=== PATIENT | female | born 1985 | race African-American/Black ===

== ENCOUNTER 2019-08-04 11:53 | Emergency (ER) | payer OTHER, SELFPAY ==
--- NOTE | ~2019-08-04 | XR_ITS ---
EXAMINATION: XR chest 2V DATE: 08/04/2019 12:37 INDICATION: Chest pain and dizziness TECHNIQUE: PA and lateral views of the chest were obtained. COMPARISON: Chest radiograph dated 06/27/[address] dated 06/28/2017 FINDINGS: The lungs remain clear with no focal airspace opacities, pulmonary edema, pleural effusion or pneumot horax. The cardiomediastinal silhouette is normal. Visualized bones and soft tissues are unremarkable . IMPRESSION: 1. No acute cardiopulmonary disease. Reviewed, dictated and finalized at location A. T VAULT CLERK
[2019-08-04 12:00] VITALS: BP 148/105; PULSE 82; RESP 18; TEMP 36.6; O2SAT 98
--- NOTE | 2019-08-04 12:23 | ECG_ITS ---
Measurements Intervals [place] Rate: 77 P: 35 TX: 167 QRS: 20 QRSD: 96 T: -3 QT: 372 QTc: 421 Interpretive Statements SINUS RHYTHM NONSPECIFIC T-WAVE ABNORMALITY- ANT/INF LEADS BORDERLINE ECG Electronically Signed On 08-04-2019 12:46:35 DATA OPERATIONS LEADER by Tony Fall D.O.
[2019-08-04 12:34] LABS: Basophils Percent Auto 0.2 % (0.2-1.2); Eosinophils Absolute Auto 0.1 K/mm3 (0-0.3); Eosinophils Percent Auto 1.1 % (0-4.4); Hematocrit 28.9 % (37.0-47.0); Hemoglobin 8.1 g/dL (12.0-15.0); Immature Granulocyte Absolute 0.06 K/mm3 (0.00-0.031); Immature Granulocyte Percent A 0.5 % (0-0.5); Lymphocytes Absolute Auto 2.33 K/mm3 (0.9-3.2); Mean Corpuscular Hemoglobin 18.7 pg (26-34); Mean Corpuscular Volume 66.6 fl (80-100); Mean Platelet Volume 9.3 fl (7.4-10.4); Monocytes Absolute Auto 0.5 K/mm3 (0.1-0.6); Monocytes Percent Auto 3.9 % (2.6-8.5); Neutrophils Absolute Auto 9.9 K/mm3 (1.3-6.7); Neutrophils Percent Auto 76.3 % (45.5-73.1); Platelet Count Result 583 k/mm3 (150-375); Red Blood Count 4.34 M/mm3 (4.2-5.4); Red Cell Distribution Width 18.8 % (11.5-14.5); White Blood Count 12.9 K/mm3 (4.5-10.0)
[2019-08-04 12:41] LABS: Hypochromasia 2+ (NORMAL); Ovalocytes 1+ (NORMAL); Platelet Estimate Adequate (Adequate); Poikilocytosis 1+ (NORMAL); Target Cells 1+ (NORMAL)
[2019-08-04 12:44] LABS: Prothrombin Time 13.3 Seconds (11.1-14.7)
[2019-08-04 12:45] LABS: Partial Thromboplastin Time 25.9 SECONDS (22.3-36.8)
[2019-08-04 12:47] LABS: Blood Urea Nitrogen 6 mg/dL (7-17); Calcium 9.2 mg/dL (8.4-10.2); Carbon Dioxide 29 mmol/L (22-30); Chloride 102 mmol/L (98-107); Estimated CRCL calculation 146 ml/min; Estimated Glomerular Filt Rate > 60; Glucose 98 mg/dL (65-105); Potassium 4.1 mmol/L (3.4-5.0); Sodium 138 mmol/L (137-145)
[2019-08-04 12:58] VITALS: BP 166/111; PULSE 76; RESP 20; O2SAT 100
[2019-08-04 12:58] LABS: Troponin I < 0.012 ng/mL (0.000-0.034)
--- NOTE | 2019-08-04 13:15 | ED.DIZZY ---
HPI - Dizziness General Chief Complaint: Dizziness Stated Complaint: dizzy Time Seen by Provider: 08/04/19 13:12 Source: patient Mode of arrival: ambulatory Limitations: no limitations History of Present Illness HPI Narrative: The pt is a 34 y/o female who presents to the ED with c/o dizziness for the past 2 days. The pt states that her dizziness makes her feel like the room is spinning. Her dizziness is aggravated with getting up and walking around but is relieved with laying down and closing her eyes. The pt reports SOB on exertion and nausea, but denies vomiting, diarrhea, cough, congestion, sinus pressure, chills, or bloody stool. She notes that she was sick 2-3 weeks ago with N/V/D, chills, and cough. The pt has a PMHx of anemia, noting her hemoglobin normally runs from 6-8 g/dL. She is supposed to take an iron supplement QD but does not do so because it makes her constipated. The pt has tried taking Ibuprofen for her sx and denies a PMHx of HTN. MD elicited complaint: dizziness Onset (ago): day(s) (2) Description: room spinning Exacerbating factors: other (getting up, walking around) Relieving factors: lying down and keeping eyes closed Associated symptoms: nausea and shortness of breath (on exertion) Related Data Allergies Allergy/AdvReac Type Severity Reaction Status Date / Time No Known Allergies Allergy Unknown Unverified 06/27/17 21:56 Review of Systems Review of Systems: All systems reviewed & are unremarkable except as noted in HPI and below Constitutional: Constitutional: Denies chills ENT: Denies nasal congestion and Denies sinus pressure Respiratory: Respiratory: Denies cough and Reports dyspnea (on exertion) Gastrointestinal: Gastrointestinal: Denies diarrhea, Reports nausea, Denies vomiting and Denies other (bloody stool) Neurologic: Reports dizziness [facility] Past Medical History Medical History (Updated 08/04/19 @ 15:40 by Dread Alvarez MD) Anemia Arthritis Figueroa's palsy Endometriosis GERD (gastroesophageal reflux disease) Pelvic inflammatory disease Pneumonia Strep throat Surgical History Surgical History (Updated 08/04/19 @ 13:52 by Iliana Garcia) H/O tubal ligation Social History Social History (Updated 08/04/19 @ 13:53 by Iliana Garcia) Smoking status: Never smoker Gender identity (if verbalized by the patient): Female Exam Const: General: healthy appearing and no acute distress Nutritional Appearance: obese HENMT: Mouth: Yes lip normal and Yes moist mucous membranes Eyes: Conjunctivae: conjunctivae normal Pupils: Equal, round and reactive pupils present Resp: Effort & Inspection: normal respiratory effort Auscultation: clear to auscultation bilaterally Cardio: Rate: regular rate Rhythm: regular rhythm Heart sounds: no murmurs GI: GI Palp: No abdominal tenderness and Yes Soft to palpation Auscultation: normal bowel sounds Back/Spine/Pelvis: Back: other (full ROM) Skin: General skin exam: normal color, dry skin and other (warm) Neuro: General: patient oriented x3 Cranial nerves: Yes Nystagmus present (mild) Speech: normal speech Extrem: General: full ROM Psych: Mental Status: mental status grossly normal Affect: normal affect Course Vital Signs Vital signs: Vital Signs Temperature 36.6 C 08/04/19 12:00 Pulse Rate 82 08/04/19 12:00 Respiratory Rate 18 08/04/19 12:00 Blood Pressure 148/105 H 08/04/19 12:00 Pulse Oximetry 98 08/04/19 12:00 Temperature 36.8 C 08/04/19 15:49 Pulse Rate 80 08/04/19 15:49 Respiratory Rate 18 08/04/19 15:49 Blood Pressure 148/88 H 08/04/19 15:49 Pulse Oximetry 98 08/04/19 15:49 MDM - Dizziness MDM Narrative Medical decision making narrative: She is moderately anemic, but this seems to be her baseline. Dizziness improved with treatment. Seems most consistent with vertigo. Likely related to recent URI. Differential Diagnosis Differential diagnosis: Likely benign
[2019-08-04 13:24] VITALS: BP 148/97; BP 150/99; BP 155/102; PULSE 73; PULSE 80; PULSE 90
[2019-08-04] MEDS: SODIUM CHLORIDE 0.9% IV 1,000 ML 999 ML IV CONT (13:36)
[2019-08-04] MEDS: MECLIZINE HCL 25 MG TABLET PO (13:36)
[2019-08-04] MEDS: KETOROLAC 30 MG/ML VIAL (*BKC) IV PUSH (14:31)
[2019-08-04] MEDS: METOCLOPRAMIDE HCL INJ 10 MG/2 ML VIAL IV PUSH (14:32)
[2019-08-04 15:49] VITALS: BP 148/88; PULSE 80; RESP 18; TEMP 36.8; O2SAT 98
== END 2019-08-04 15:50 | disposition home or self-care (01) ==
PROVIDERS: Emergency Medicine; Emergency Provider Emergency Medicine; PCP Internal Medicine
DX: R42 Dizziness and giddiness (principal); M19.90 Unspecified osteoarthritis, unspecified site; K21.9 Gastro-esophageal reflux disease without esophagitis; D64.9 Anemia, unspecified; N80.9 Endometriosis, unspecified; R94.31 Abnormal electrocardiogram [ECG] [EKG]
CPT/HCPCS: 36415; 71046; 80048; 84484; 85025; 85610; 85730; 93005; 96361; 96365; 96375; 99284; A9270; J0131; J1885; J2765; J7030

== ENCOUNTER 2020-04-28 13:44 | Outpatient (CLI) | payer OTHER, SELFPAY ==
--- NOTE | ~2020-04-28 | MMUS_ITS ---
EXAMINATION: MM diagnostic jimmy BI w wes, US breast RT limited HISTORY: Palpable lump of the far posterior third of the inner right breast TECHNIQUE: Craniocaudal, mediolateral, and mediolateral oblique 3-D tomosynthesis images of the breas ts were performed and synthetic 2-D images were generated. CAD analysis was submitted and interpreted . High resolution limited right breast ultrasound was performed. COMPARISON: None, baseline BREAST PARENCHYMAL COMPOSITION: The breasts are almost entirely fatty. FINDINGS: MAMMOGRAPHIC FINDINGS: Right breast: There is an ill-defined, indistinct focal asymmetry in the far posterior third of the i nner breast which appears to be associated with the skin corresponding to the palpable abnormality of concern. Left breast: There is no evidence of suspicious mass, calcification, or architectural distortion to s uggest malignancy. ULTRASOUND: There is a 2.3 x 0.7 x 2.0 cm hypoechoic area of the skin with a tract to the skin surface at the 2:0 0 location 8 cm from the nipple adjacent to the sternum corresponding to the palpable abnormality of concern. IMPRESSION: 1. Sebaceous cyst corresponding to the palpable abnormality of concern. Clinical follow-up is recomme nded. 2. Recommend routine screening mammography beginning at age 40. BI-RADS Category 2: Benign finding(s). Reviewed, dictated and finalized at location A. R ENGINEER IMPRESSION: 1. Sebaceous cyst corresponding to the palpable abnormality of concern. Clinica l follow-up is recommended. 2. Recommend routine screening mammography beginning at age 40. BI-RADS Category 2: Benign finding(s).
== END 2020-04-28 13:45 | disposition home or self-care (01) ==
LOC: ANHIMG 13:46
PROVIDERS: PCP Internal Medicine; Visit Provider Advanced Practice Midwife
DX: N63.10 Unspecified lump in the right breast, unspecified quadrant (principal)
CPT/HCPCS: 76642; 77062; 77066; G0279

== ENCOUNTER 2021-04-04 00:36 | Emergency (ER) | payer OTHER, SELFPAY ==
--- NOTE | ~2021-04-04 | CT_ITS ---
EXAMINATION: CT knee RT wo con DATE: 04/04/2021 03:35 INDICATION: Right knee pain and swelling TECHNIQUE: Computed tomography (CT) of the right knee was performed without intravenous contrast. The dose-length product was 464.28 mGy-cm. Automated exposure control and iterative reconstruction techn ique were employed. COMPARISON: No prior studies for comparison. FINDINGS: There is mild osteoarthritis of the right knee. No acute fracture, subluxation or dislocati on. Small joint effusion. No significant soft tissue abnormality. No foreign bodies. IMPRESSION: 1. No acute fracture. Reviewed, dictated and finalized at location A. IMPRESSION: 1. No acute fracture.
--- NOTE | ~2021-04-04 | XR_ITS ---
XR knee RT min 4V 04/04/2021 01:15 INDICATION: Right knee pain PROCEDURE: 5 views right knee COMPARISON: No prior studies for comparison. FINDINGS: Fracture, dislocation or subluxation is not identified. No significant joint effusion. The soft tissues appear within normal limits. No foreign bodies are identified. IMPRESSION: 1: NO ACUTE BONE OR JOINT ABNORMALITY IDENTIFIED. Reviewed, dictated and finalized at location A.
[2021-04-04 00:38] VITALS: BP 136/90; PULSE 92; RESP 20; TEMP 36.8; O2SAT 100
[2021-04-04 02:56] VITALS: BP 140/100; PULSE 79; RESP 17; TEMP 36.4; O2SAT 99
[2021-04-04] MEDS: ONDANSETRON HCL ODT 4 MG TABLET PO (03:10)
[2021-04-04] MEDS: HYDROcodone/acetaminophen (*CRX) 5-325 MG TABLET 1 TAB PO (03:10)
[2021-04-04] MEDS: IBUPROFEN 400 MG TABLET 800 MG PO (03:11)
--- NOTE | 2021-04-04 05:21 | ED.LOWEXIN ---
HPI - Extremity Injury (Lower) General Chief Complaint: Extremity Injury, Lower Stated Complaint: Right knee pain Time Seen by Provider: 04/04/21 02:47 Source: patient Mode of arrival: ambulatory Limitations: no limitations History of Present Illness HPI Narrative: This is a 35 year old female who presents for evaluation of right knee pain. She developed right anterior knee pain 1 week ago. Her pain is worse with walking. She has been taking ibuprofen for her pain. Today she was at a concert, and she felt of crack in her knee when she sat down. She has been unable to bear weight in her right knee since. Pain is also worse with bending. She has not taken anything for pain since 4 pm. She has no fever or redness. She denies fever, chills, chest pain or shortness of breath. She states her pain is severe and she is unable to walk due to her pain. Related Data Allergies Allergy/AdvReac Type Severity Reaction Status Date / Time No Known Allergies Allergy Unknown Unverified 06/27/17 21:56 Review of Systems Review of Systems: All systems reviewed & are unremarkable except as noted in HPI and below PMFSH Past Medical History Medical History Anemia Arthritis Figueroa's palsy Endometriosis GERD (gastroesophageal reflux disease) Pelvic inflammatory disease Pneumonia Strep throat Surgical History Surgical History H/O tubal ligation Social History Social History (Updated 08/04/19 @ 13:53 by Iliana Garcia) Smoking status: Never smoker Gender identity (if verbalized by the patient): Female Exam Const: General: no acute distress and alert Nutritional Appearance: obese Orientation/consciousness: patient oriented x3 Eyes: EOM: EOMs intact bilaterally Resp: Effort & Inspection: normal respiratory effort Neuro: General: patient oriented x3, moves all extremities and CN's II-XI intact bilaterally Extrem: Other: I could not appreciate significant swelling, no redness, she has anterior right knee tenderness. Pain with flexion. FROM otherwise. STrong pedal pulse, no calf tenderness, negative madhuri's sign Psych: Mental Status: mental status grossly normal Affect: normal affect Course Reevaluation(s) Reevaluation #1: I Discussed with patient that CT findings. She will be discharge home with knee immobilizer and follow up with PCP Date: 04/04/21 Time: 06:27 Vital Signs Vital signs: Vital Signs Temperature 98.2 F 04/04/21 00:38 Pulse Rate 92 04/04/21 00:38 Respiratory Rate 20 04/04/21 00:38 Blood Pressure 136/90 04/04/21 00:38 Pulse Oximetry 100 04/04/21 00:38 Temperature 97.6 F 04/04/21 02:56 Pulse Rate 64 04/04/21 05:44 Respiratory Rate 17 04/04/21 05:44 Blood Pressure 110/66 04/04/21 05:44 Pulse Oximetry 100 04/04/21 05:44 MDM - Extremity Injury (Lower) Imaging Data Attestation: I personally reviewed and interpreted this imaging study as follows: My impression: right knee xray- no xray Radiologist's impression: CT right knee Impression: No acute osseous traumatic injury. Mild joint space narrowing with marginal hypertrophinc osteophytes changes. Suprapatellar joint effusion noted. Incidiental fingings: there is sigmoid overlying soft tissue abnormality. The muscle bundles demonstrae no significan abnormality Discharge Plan Discharge Clinical Impression: Acute pain of right knee, Effusion of knee joint right Patient Disposition: Home, Self-Care Condition: Stable Instructions: Antibiotic Form, Swollen Knee Joint (ED), Knee Pain (ED) Additional Instructions: Please continue to take antiinflammatory and pain medication as need. Wear brace or immobilizer. Ice intermittent for swelling and pain. Follow up with your primary care physician for evaluation. Prescriptions: New ibuprofen 800 mg tablet 800 mg PO Q6H PRN (Reason:
[2021-04-04 05:44] VITALS: BP 110/66; PULSE 64; RESP 17; O2SAT 100
== END 2021-04-04 07:00 | disposition home or self-care (01) ==
PROVIDERS: Emergency Provider Emergency Medicine
DX: M25.461 Effusion, right knee (principal); M25.561 Pain in right knee
CPT/HCPCS: 73564; 73700; 99284; A9270

== ENCOUNTER 2021-06-02 | Day surgery (SDC) | payer OTHER, SELFPAY ==
[2021-05-26 08:28] VITALS: BMI 53.7
--- NOTE | 2021-05-26 09:09 | PC.NURSE ---
Report to the Outpatient Waiting Room, entrance under the green pavilion located off [facility], at time 0600 on date 06/02/21. OR Time: 0730. - You and your visitor will be asked a series of questions to screen for COVID 19 for your protection. - A mask is required within the hospital. - Only one visitor is allowed at this time. Patient visitors will be guided where to wait when not with patient. Preoperative COVID Testing Requirements: No COVID Test needed if: (proof is required; if not received patient will have Rapid Test prior to entry) - Patient has received COVID Vaccine at least 14 days prior to procedure date or - Patient has positive COVID test result within last 90 days of surgery date. COVID Test needed if above criteria is not met If not COVID vaccinated a COVID test must be conducted within 72 hours of surgery and patient is asked to isolate self from time of testing until procedure. You will go to the [facility] for your COVID testing. The [facility] is located at the corner of [address] [facility]. You will only be called if COVID results are positive and your surgeon may reschedule your elective surgery date. Patients may have clear liquids (water, carbonated beverages, clear teas, apple juice) until 3 hours prior to surgery with a maximum of 20 ounces. - No food from midnight until time of surgery - Infants may have breast milk until 4 hours before surgery, infant formula 6 hours prior to surgery. - Children will be allowed to drink immediately following surgery. If applicable, please bring a bottle or sippy cup to assist with drinking. Juice, water, soda, and popsicles are readily available. For infants on formula, please bring formula the day of surgery. Pacifiers are allowed. Take the following medications with a SIP of water the morning of surgery: NONE Medications to discontinue per physician: VITAMINS/SUPPLEMENTS Date to take last dose: 05/29/21 Please no make-up, nail uzbek, hairspray, perfume, deodorant, or body powder the day of surgery. No jewelry (including any body piercings) or valuables the day of surgery, leave them at home. Please take a shower or bath the night before, or the morning of, surgery with an antibacterial soap. Wear comfortable, loose fitting clothing. Children are encouraged to wear pajamas. - Jewelry must be removed prior to entering the operating room. Rings and piercings that are not removed may be cut off. - The hospital will not accept responsibility for valuables. - Please leave all valuables, including medications, at home the day of surgery. If you are going home after surgery, a licensed driver's license examiner must drive you home. - NO public transportation without another adult. - We recommend that an adult stay with you for 24 hours following discharge. - We also recommend that you do not drive, make important decision, drink alcoholic beverages, or take any drugs that were not prescribed by your health care provider for at least 24 hours after your discharge time. For Pediatric surgeries, we recommend two adults accompany the child home (only one inside the building at this time). Follow any additional instructions given to you from your surgeon. Telephone instructions given to BRENDEN MIMS and asked if any additional questions and then verbalized understanding. Patient advised to call surgeon office or pre surgery nurse liaison [phone] if any additional questions.
[2021-06-02] VITALS (9 sets, daily range): BP systolic 128–150; BP diastolic 87–97; PULSE 50–84; RESP 10–22; TEMP 36.1–36.6; O2SAT 99–100; BMI 56.0
--- NOTE | 2021-06-02 06:37 | WPDANESEPPF ---
Anes - Initial Pre Proc Eval Procedure: Operation Date: 06/02/21 07:30 Proposed Procedures p Laparoscopic Left Ovarian Cystectomy - Ida Zavala MD Date/Time: 06/02/21 06:37 Surgeon: Ida Zavala MD Pre Op Diagnosis: Pain in Pelvis Patient Data Age: 36 Gender: F Height: 1.57 m Weight: 139.1 kg Allergies Allergy/AdvReac Type Severity Reaction Status Date / Time No Known Allergies Allergy Unknown Verified 06/02/21 06:27 Home Medications Medication Instructions Recorded Confirmed Type ascorbic acid (vitamin C) [Vitamin 500 mg PO DAILY 05/26/21 06/02/21 History C] ferrous sulfate [Iron (ferrous 325 mg PO DAILY 05/26/21 06/02/21 History sulfate)] multivitamin 1 tablet PO DAILY 05/26/21 06/02/21 History Patient hx anesthesia problems: none Family hx anesthesia problems: none Results Review: All pre-operative results and documents have been reviewed as part of the pre-operative evaluation. [facility] Past Medical History Medical History (Updated 06/02/21 @ 06:37 by Cr Calderon MD) Anemia Arthritis Figueroa's palsy Endometriosis GERD (gastroesophageal reflux disease) Morbid obesity Pelvic inflammatory disease Pneumonia Strep throat Surgical History Surgical History H/O tubal ligation Social History Social History Smoking status: Never smoker Alcohol intake: current Alcohol use details: A COUPLE A YEAR Substance use: never Substance use type: does not use Living arrangements: with family Additional living arrangements comments: CHILDREN Gender identity (if verbalized by the patient): Female Spiritual care concerns: Yes (NO BLOOD PRODUCTS) Anes - Eval Final PreProcedure Day of Procedure 06/02/21 06:37 Patient weight: morbidly obese Heart: regular rate and rhythm Lungs: clear to auscultation Airway: Mallampati scale class II Neurological: alert and oriented Last oral intake: >/= 8 hours ASA classification: III Emergent: no Anesthetic plan: proceed Anesthesia type and monitoring: general ETT and standard monitoring Results Review: All pre-operative results and documents have been reviewed as part of the pre-operative evaluation. Informed Consent: The patient's anesthetic plan and its attendant risks and benefits were discussed with the patient/family/POA. Questions were solicited and answers provided to the satisfaction of the patient/family/POA.
[2021-06-02] MEDS: LACTATED RINGERS 1,000 ML 30 ML IV CONT ×2 (06:40→08:36)
[2021-06-02] MEDS: ACETAMINOPHEN 500 MG TABLET 1000 MG PO (06:47)
[2021-06-02] MEDS: KETOROLAC 15 MG/ML VIAL (*BKC) IV PUSH (06:48)
--- NOTE | 2021-06-02 07:06 | WPDHPUPDATE1 ---
History and Physical Update Update Date/Time: 06/02/21 07:06 History and Physical has been reviewed, including an updated exam of the patient. There are NO changes in the patient's condition. Risks, benefits, and alternatives have been discussed and questions answered. Patient agrees to proceed with procedure.
--- NOTE | 2021-06-02 08:32 | P.OP_ITS ---
Procedure Note - Detailed Date of Procedure 06/02/21 Pre-op Diagnosis Pain in Pelvis, left ovarian cyst Post-op Diagnosis same Procedure Performed Laparoscopic left ovarian cystectomy. Surgeon Ida Zavala MD Anesthesia general Indications Pelvic pain, ovarian cyst Findings Large quantity of intra-abdominal fat and intestine. Difficult to place in Trendelenburg position due to anesthesia concerns, the left ovary contained a cyst that appeared benign. The right ovary appeared normal. The top of the uterus appeared normal, the rest of the pelvis could not be visualized. Description of Procedure The patient was taken to the operating room. She was prepped and draped in the dorsal lithotomy position after induction general anesthesia. A 5 mm incision was made with a scalpel on the abdominal skin in the left upper quadrant of the abdomen. A 5 mm trocar was inserted into the intra-abdominal cavity under direct visualization the scope. In the same fashion a 5 mm left lower quadrant trocar was inserted and a 5 mm infraumbilical trocar was inserted. A cystectomy was performed on the left ovary. This was done with sharp dissection and monopolar cautery. It was hemostatic at the end of the cystec meghna. The pelvis was irrigated. The pneumoperitoneum was reduced. The trocars were removed. Skin was closed with subcuticular 4 Monocryl. The patient's incisions were covered with Dermabond. She was taken recovery room in stable condition. Sponge lap and needle counts were correct x2. Estimated Blood Loss 20 Pathology yes Complications No immediate complications Condition stable Disposition same day
[2021-06-02] MEDS: fentaNYL CITRATE INJ (*CRX) 100 MCG/2 ML VIAL 25 MCG IV PUSH ×5 (08:45→10:20)
[2021-06-02] MEDS: oxyCODONE HCL (*CRX) 5 MG TAB IR PO (10:06)
== END 2021-06-02 10:50 | disposition home or self-care (01) ==
PROVIDERS: Visit Provider Obstetrics & Gynecology
PROC: (CPT 49320; principal; 2021-06-02 07:30)
DX: R10.2 Pelvic and perineal pain (principal); N83.202 Unspecified ovarian cyst, left side; D64.9 Anemia, unspecified; E66.01 Morbid (severe) obesity due to excess calories; Z68.43 Body mass index [BMI] 50.0-59.9, adult
CPT/HCPCS: 58662; A9270; J0330; J1100; J1885; J2250; J2270; J2405; J2704; J3010; J7030; J7120

== ENCOUNTER 2022-06-13 07:03 | Emergency (ER) | payer OTHER, SELFPAY ==
--- NOTE | ~2022-06-13 | XR_ITS ---
EXAMINATION: XR chest 2V DATE: 06/13/2022 07:39 INDICATION: Fever, cough and congestion TECHNIQUE: frontal and lateral views of the chest were obtained. COMPARISON: Chest radiograph dated 08/04/19 FINDINGS: The lungs remain clear with no focal airspace opacities, pulmonary edema, pleural effusion or pneumot horax. The cardiomediastinal silhouette is normal. Visualized bones and soft tissues are unremarkable . IMPRESSION: 1. No acute cardiopulmonary disease. Reviewed, dictated and finalized at location A. ET ASSEMBLER
[2022-06-13 07:06] VITALS: BP 176/96; PULSE 107; RESP 16; TEMP 37.4; O2SAT 97
--- NOTE | 2022-06-13 07:15 | ED.URI ---
HPI - URI/Sore Throat General Chief Complaint: Upper Respiratory Infection Stated Complaint: URI Time Seen by Provider: 06/13/22 07:11 History of Present Illness HPI Narrative: Pt presents with low grade fever, cough, vomiting and diarrhea for about a week. Pt denies other sick family members. Pt has some body aches as well and a mild SEGAL. Related Data Home Medications Medication Instructions Recorded Confirmed ascorbic acid (vitamin C) 500 mg 500 mg PO DAILY 05/26/21 06/02/21 tablet (Vitamin C) ferrous sulfate 325 mg (65 mg 325 mg PO DAILY 05/26/21 06/02/21 iron) tablet (Iron (ferrous sulfate)) multivitamin 1 tablet PO DAILY 05/26/21 06/02/21 Allergies Allergy/AdvReac Type Severity Reaction Status Date / Time hydrocodone AdvReac Mild Nausea Verified 06/03/21 09:57 Review of Systems Review of Systems: All systems reviewed & are unremarkable except as noted in HPI and below PMFSH Past Medical History Medical History (Updated 06/13/22 @ 08:17 by Sharona Naidu III, DO) Anemia Arthritis Figueroa's palsy Endometriosis GERD (gastroesophageal reflux disease) Morbid obesity Pelvic inflammatory disease Pneumonia Strep throat Surgical History Surgical History H/O tubal ligation Social History Social History Smoking status: Never smoker Alcohol intake: current Alcohol use details: A COUPLE A YEAR Substance use: never Substance use type: does not use Additional living arrangements comments: CHILDREN Gender identity (if verbalized by the patient): Female Spiritual care concerns: Yes (NO BLOOD PRODUCTS) Exam Const: General: healthy appearing and no acute distress Nutritional Appearance: well nourished Orientation/consciousness: patient oriented x3 Limitations: no limitations HENMT: Face/Nose/Sinus: Nasal discharge present Mouth: Yes Normal oral and palatal mucosa present Throat: posterior oropharynx normal Eyes: EOM: EOMs intact bilaterally Neck: Neck: normal visual inspection, no lymphadenopathy and no meningeal signs Resp: Effort & Inspection: normal respiratory effort Auscultation: clear to auscultation bilaterally Cardio: Rate: regular rate Rhythm: regular rhythm GI: GI Palp: Yes Soft to palpation Auscultation: normal bowel sounds Skin: General skin exam: normal color Rashes: no rashes Neuro: General: patient oriented x3, moves all extremities, no meningeal signs and no focal motor deficits Cranial nerves: Yes Nystagmus not present Speech: normal speech Extrem: General: normal to inspection and no clubbing, cyanosis or edema Psych: Mental Status: mental status grossly normal Affect: normal affect Attitude: cooperative Course Vital Signs Vital signs: Vital Signs Temperature 99.3 F 06/13/22 07:06 Pulse Rate 107 H 06/13/22 07:06 Respiratory Rate 16 06/13/22 07:06 Blood Pressure 176/96 H 06/13/22 07:06 Pulse Oximetry 97 06/13/22 07:06 Temperature 99.3 F 06/13/22 07:06 Pulse Rate 107 H 06/13/22 07:06 Respiratory Rate 16 06/13/22 07:06 Blood Pressure 176/96 H 06/13/22 07:06 Pulse Oximetry 97 06/13/22 07:06 Oxygen Delivery Room Air 06/13/22 07:40 MDM - URI/Sore Throat MDM Narrative Medical decision making narrative: cxr neg, covid positive, works at [employer] so will need to be off until cleared, will prescribe zofran for nausea told to take tylenol and motrin for fever and drink fluids Differential Diagnosis Differential diagnosis: Likely upper respiratory infection, viral infection, influenza and other (pneumonia, bronchitis, rsv, covid) Lab Data Attestation: I reviewed the patient's lab results. Labs: Lab Results 06/13/22 Range/Units 07:16 Influenza A (RT-PCR) Negative (Negative) Influenza B (RT-PCR) Negative (Negative) RSV (RT-PCR) Negative (Negative) SARS-CoV-2 RNA (RT-PCR) Positive A
[2022-06-13 08:01] LABS: Influenza A QL RT-PCR Negative (Negative); Influenza B QL RT-PCR Negative (Negative); RSV RNA, RT-PCR Negative (Negative); SARS-CoV-2 RNA PCR Positive
== END 2022-06-13 08:38 | disposition home or self-care (01) ==
PROVIDERS: Emergency Provider Emergency Medicine
DX: U07.1 COVID-19 (principal); M19.90 Unspecified osteoarthritis, unspecified site; K21.9 Gastro-esophageal reflux disease without esophagitis; N80.9 Endometriosis, unspecified; Z87.01 Personal history of pneumonia (recurrent); Z86.2 Personal history of diseases of the blood and blood-forming organs and certain disorders involving the immune mechanism
CPT/HCPCS: 71046; 87637; 99283

== ENCOUNTER 2022-06-29 17:28 | Emergency (ER) | payer OTHER, SELFPAY ==
--- NOTE | ~2022-06-29 | CT_ITS ---
EXAMINATION: CT abdomen pelvis w con DATE: 06/29/2022 19:04 INDICATION: abd pain TECHNIQUE: Computed tomography (CT) of the abdomen and pelvis was performed with 100 mL Omnipaque-350 intravenous contrast. Automated exposure control and iterative reconstruction technique were employe d. The dose-length product was 1513.16 mGy-cm. COMPARISON: 09/29/2012. FINDINGS: Lower thorax: Lingular scar. Liver: Normal. Biliary/Gallbladder: Gallbladder is normal. No bile duct dilation. Pancreas: No mass or duct dilation. Spleen: Normal. Adrenals:No mass. Kidneys: Mild patchy right renal enhancement. Mild right pelviectasis and caliectasis, with urothelia l enhancement and periureteral stranding. No obstructive calcification. No suspicious mass. GI tract: No small or large bowel dilation. Normal appendix. Mesentery/Peritoneum: No ascites, mass, or free air. Retroperitoneum: No mass. Pelvis: Pelvic organs are within normal limits. Small simple right ovarian cyst. Soft Tissues: Soft tissues and body wall unremarkable. Bones: No acute osseous finding. IMPRESSION: CT findings suggestive of ascending urinary tract infection on the right with pyelonephritis. Reviewed, dictated and finalized at location [facility] REPRES[facility]IVE IMPRESSION: CT findings suggestive of ascending urinary tract infection on the right with p yelonephritis.
[2022-06-29 17:30] VITALS: BP 152/110; PULSE 88; RESP 18; TEMP 36.8; O2SAT 100
[2022-06-29 18:07] LABS: Basophils Percent Auto 0.3 % (0.2-1.2); Eosinophils Absolute Auto 0.1 K/mm3 (0-0.3); Hematocrit 27.5 % (37.0-47.0); Hemoglobin 7.6 g/dL (12.0-15.0); Immature Granulocyte Absolute 0.04 K/mm3 (0.00-0.031); Immature Granulocyte Percent A 0.3 % (0-0.5); Lymphocytes Absolute Auto 2.32 K/mm3 (0.9-3.2); Lymphocytes Percent Auto 17.2 % (18.3-44.2); Mean Corpuscular HGB Conc 27.6 g/dl (32-36); Mean Corpuscular Hemoglobin 18.6 pg (26-34); Mean Corpuscular Volume 67.2 fl (80-100); Mean Platelet Volume 9.8 fl (7.4-10.4); Monocytes Absolute Auto 0.8 K/mm3 (0.1-0.6); Neutrophils Absolute Auto 10.1 K/mm3 (1.3-6.7); Neutrophils Percent Auto 75.2 % (45.5-73.1); Platelet Count Result 594 k/mm3 (150-375); Red Blood Count 4.09 M/mm3 (4.2-5.4); Red Cell Distribution Width 20.2 % (11.5-14.5); White Blood Count 13.5 K/mm3 (4.5-10.0)
[2022-06-29 18:15] LABS: Chloride 101 mmol/L (98-107)
[2022-06-29 18:23] LABS: Hypochromasia 1+ (NORMAL); Platelet Estimate Increased (Adequate)
[2022-06-29 18:24] LABS: Anisocytosis 1+ (NORMAL); Microcytosis 1+ (NORMAL); Ovalocytes 1+ (NORMAL); Schistocytes None Seen (NORMAL); Target Cells 1+ (NORMAL)
--- NOTE | 2022-06-29 18:26 | PC.NURSE ---
Dr. Romero at bedside to assess pt.
--- NOTE | 2022-06-29 18:32 | ED.ABDPAIN ---
HPI - Abdominal Pain General Chief Complaint: Abdominal Pain Stated Complaint: right side abd pain Time Seen by Provider: 06/29/22 17:43 Source: RN notes reviewed History of Present Illness HPI narrative: Patient presents emergency room from home for abdominal pain. Patient states pain began this morning. The pain is located in the right lower abdomen does not radiate described as sharp and stabbing in nature. States she has not take anything for the pain she denies any fevers or chills, nausea vomiting or diarrhea she denies any chest pain or shortness of breath. Patient states she does have a history of tubal ligation Related Data Home Medications Medication Instructions Recorded Confirmed ascorbic acid (vitamin C) 500 mg 500 mg PO DAILY 05/26/21 06/02/21 tablet (Vitamin C) ferrous sulfate 325 mg (65 mg 325 mg PO DAILY 05/26/21 06/02/21 iron) tablet (Iron (ferrous sulfate)) multivitamin 1 tablet PO DAILY 05/26/21 06/02/21 Allergies Allergy/AdvReac Type Severity Reaction Status Date / Time hydrocodone AdvReac Mild Nausea Verified 06/03/21 09:57 Review of Systems Review of Systems: Gen.: Denies fevers or chills ENT: Denies congestion Respiratory: Denies shortness of breath or cough CV: Denies chest pain or palpitations GI: See HPI denies burning, urgency, frequency or hematuria Musculoskeletal: Denies back pain or muscle pain Neuro: Denies numbness, tingling, weakness or focal weakness Skin: Denies rash Except as documented, all other systems reviewed and negative [facility]LY [facility] Past Medical History Medical History Anemia Arthritis Figueroa's palsy Endometriosis GERD (gastroesophageal reflux disease) Morbid obesity Pelvic inflammatory disease Pneumonia Strep throat Surgical History Surgical History H/O tubal ligation Social History Social History Smoking status: Never smoker Alcohol intake: current Alcohol use details: A COUPLE A YEAR Substance use: never Substance use type: does not use Additional living arrangements comments: CHILDREN Gender identity (if verbalized by the patient): Female Spiritual care concerns: Yes (NO BLOOD PRODUCTS) Exam Narrative: APPEARANCE: No acute distress, nontoxic, resting in bed HEENT: Normocephalic, atraumatic, OMM RESPIRATORY: No respiratory distress, clear to auscultation bilaterally with no rhonchi wheezing or rales CARDIOVASCULAR: RRR s murmur ABDOMINAL: Soft nondistended tender palpation right lower quadrant right upper quadrant returns and left upper quadrant left lower quadrant no rebound or guarding MUSCULOSKELETAl: Moves all extremities. No clubbing, cyanosis or edema. NEURO: Awake and alert. Following commands, speech normal, no focal deficits SKIN:: Warm, dry. Normal Color PSYCHIATRIC: Normal affect/mood Course Course Emergency Course: Patient states she is feeling much better at this time ready for discharge Discussed with patient results of workup and diagnosis. Discussed need for follow-up with primary care, proper use of medication, and reasons to return to the emergency department. Patient understands and agrees to current treatment plan Vital Signs Vital signs: Vital Signs Temperature 98.2 F 06/29/22 17:30 Pulse Rate 88 06/29/22 17:30 Respiratory Rate 18 06/29/22 17:30 Blood Pressure 152/110 H 06/29/22 17:30 Pulse Oximetry 100 06/29/22 17:30 Oxygen Delivery Room Air 06/29/22 17:30 Temperature 98.2 F 06/29/22 17:30 Pulse Rate 88 06/29/22 17:30 Respiratory Rate 18 06/29/22 17:30 Blood Pressure 152/110 H 06/29/22 17:30 Pulse Oximetry 100 06/29/22 17:30 Oxygen Delivery Room Air 06/29/22 17:30 MDM - Abdominal Pain MDM Narrative Medical decision making narrative: Patient present with right-sided abdominal pain lab resu
[2022-06-29 18:38] LABS: Alanine Aminotransferase 16 U/L (6-35); Albumin Level 4.2 g/dL (3.5-5.1); Alkaline Phosphatase 94 U/L (38-126); Anion Gap 5 mmol/L (8-16); Aspartate Amino Transferase 21 U/L (14-36); Bilirubin,Total 0.2 mg/dL (0.2-1.3); Blood Urea Nitrogen 7 mg/dL (7-17); Calcium 8.7 mg/dL (8.4-10.2); Carbon Dioxide 27 mmol/L (22-30); Estimated CRCL calculation 143 ml/min; Estimated Glomerular Filt Rate > 60; Glucose 101 mg/dL (65-110); Lipase 53 U/L (23-300); Potassium 3.7 mmol/L (3.4-5.0); Sodium 133 mmol/L (137-145)
[2022-06-29 18:40] LABS: Appearance Urine Cloudy (Clear); Bilirubin Urine Negative (Negative); Blood Urine 2+ (Negative); Color Urine Yellow (Yellow); Glucose Urine UA Negative (Negative); Ketones Urine Negative (Negative); Leukocyte Esterase Ur 1+ LEU/UL (Negative); Nitrate Urine Negative (Negative); Protein Urine 3+ mg/dL (Negative); Specific Grav Ur >= 1.030 (1.001-1.035); Urobilinogen Urine 0.2 mg/dL (<2.0); pH Urine 5.5 (5.0-9.0)
[2022-06-29 18:42] LABS: Pregnancy On Board Control Positive; Urine Pregnancy Test Negative
[2022-06-29 18:46] LABS: Bacteria Urine Trace /hpf; Mucus Urine Rare /lpf; RBC Urine 51-75 /hpf (0-2); Squamous Epithelial Cell Urine Moderate /hpf (Few); WBC Urine >75 /hpf
[2022-06-29 18:47] LABS: Add Urine Microscopic? YES
[2022-06-29] MEDS: KETOROLAC 30 MG/ML VIAL (*BKC) IV PUSH (18:47)
[2022-06-29] MEDS: SODIUM CHLORIDE 0.9% IV 1,000 ML 999 ML IV CONT (18:48)
--- NOTE | 2022-06-29 18:54 | PC.NURSE ---
Patient off unit to CT.
[2022-06-29 20:26] LABS: Lactic Acid Reflex 0.8 mmol/L (0.7-2.0)
[2022-06-29 20:55] VITALS: BP 148/87; PULSE 68; RESP 19; TEMP 36.7; O2SAT 98
== END 2022-06-29 20:55 | disposition home or self-care (01) ==
PROVIDERS: Emergency Provider Emergency Medicine
DX: N12 Tubulo-interstitial nephritis, not specified as acute or chronic (principal); D64.9 Anemia, unspecified; M19.90 Unspecified osteoarthritis, unspecified site; N80.9 Endometriosis, unspecified; E66.01 Morbid (severe) obesity due to excess calories; Z68.43 Body mass index [BMI] 50.0-59.9, adult; Z87.01 Personal history of pneumonia (recurrent)
CPT/HCPCS: 36415; 74177; 80053; 81001; 81025; 83605; 83690; 85025; 87077; 87086; 87088; 87186; 96361; 96365; 96375; 99284; J0696; J1885; J7030; Q9967

== ENCOUNTER 2022-10-28 02:06 | Day surgery (SDC) | payer OTHER, SELFPAY ==
[2022-10-14 14:01] VITALS: BMI 51.5
--- NOTE | 2022-10-27 19:47 | PM.HPGS ---
History of Present Illness History of Present Illness Consent: Risks, benefits, and alternatives have been discussed and questions answered. Patient agrees to proceed with procedure. Chief complaint: HUE; Fam Hx of colon cancer Narrative: Sara Gutierrez is a 37 year old female with iron deficiency anemiaa Review of Systems Review of Systems: All systems reviewed & are unremarkable except as noted in HPI and below PMFSH Past Medical History Medical History Anemia Arthritis Figueroa's palsy Endometriosis GERD (gastroesophageal reflux disease) Morbid obesity Pelvic inflammatory disease Pneumonia Strep throat Surgical History Surgical History H/O tubal ligation Social History Social History Smoking status: Never smoker Alcohol intake: current Alcohol use details: occasional Substance use: never Substance use type: does not use Living arrangements: with family Additional living arrangements comments: CHILDREN Gender identity (if verbalized by the patient): Female Spiritual care concerns: No Meds Home Medications and Allergies Home Medications Medication Instructions Recorded Confirmed Type ascorbic acid (vitamin C) 500 mg 500 mg PO DAILY 05/26/21 10/14/22 History tablet (Vitamin C) ferrous sulfate 325 mg (65 mg 325 mg PO DAILY 05/26/21 10/14/22 History iron) tablet (Iron (ferrous sulfate)) multivitamin 1 tablet PO DAILY 05/26/21 10/14/22 History diclofenac sodium 75 mg 75 mg PO BID PRN Pain 10/14/22 10/14/22 History tablet,delayed release dulaglutide 0.75 mg/0.5 mL 0.75 mg subcut WEEKLY 10/14/22 10/14/22 History subcutaneous pen injector (Trulicity) ergocalciferol (vitamin D2) 1,250 1,250 mcg PO WEEKLY 10/14/22 10/14/22 History mcg (50,000 unit) capsule metformin 500 mg tablet,extended 500 mg PO DAILY 10/14/22 10/14/22 History release 24 hr pantoprazole 40 mg tablet,delayed 40 mg PO DAILY 10/14/22 10/14/22 History release Allergies Allergy/AdvReac Type Severity Reaction Status Date / Time hydrocodone AdvReac Mild Nausea Verified 10/28/22 11:04 Exam Const: General: alert and obese Orientation/consciousness: patient oriented x3 Resp: Auscultation: clear to auscultation bilaterally Cardio: Rhythm: regular rhythm GI: GI Palp: Yes Soft to palpation and No Tenderness to palpation present (GI) Neuro: General: patient oriented x3 Assessment and Plan Assessment and plan (1) Iron deficiency anemia: Code(s): D50.9 - Iron deficiency anemia, unspecified Status: Acute Assessment and Plan: EGD with possible biopsy or dilatation or cautery. Colonoscopy with possible biopsy or polypectomy or cautery or injection of substances.
[2022-10-28 11:05] VITALS: BP 153/89; PULSE 67; RESP 18; TEMP 36.4; O2SAT 100
[2022-10-28] MEDS: LACTATED RINGERS 1,000 ML 150 ML IV CONT (11:09)
--- NOTE | 2022-10-28 11:29 | WPDANESEPPF ---
Anes - Initial Pre Proc Eval Procedure: Operation Date: 10/28/22 12:30 Proposed Procedures p Esophagogastroduodenoscopy & Colonoscopy - Lion Andrade MD Date/Time: 10/28/22 11:29 Surgeon: Lion Andrade MD Pre Op Diagnosis: HUE; Fam Hx of colon cancer Patient Data Age: 37 Gender: F Height: 1.6 m Weight: 134.1 kg Last Vital Signs Temp 36.4 C L 10/28/22 11:05 Pulse 67 10/28/22 11:05 Resp 18 10/28/22 11:05 BP 153/89 H 10/28/22 11:05 Pulse Ox 100 10/28/22 11:05 O2 Del Method Room Air 10/28/22 11:05 Allergies Allergy/AdvReac Type Severity Reaction Status Date / Time hydrocodone AdvReac Mild Nausea Verified 10/28/22 11:04 Home Medications Medication Instructions Recorded Confirmed Type ascorbic acid (vitamin C) 500 mg 500 mg PO DAILY 05/26/21 10/14/22 History tablet (Vitamin C) ferrous sulfate 325 mg (65 mg 325 mg PO DAILY 05/26/21 10/14/22 History iron) tablet (Iron (ferrous sulfate)) multivitamin 1 tablet PO DAILY 05/26/21 10/14/22 History diclofenac sodium 75 mg 75 mg PO BID PRN Pain 10/14/22 10/14/22 History tablet,delayed release dulaglutide 0.75 mg/0.5 mL 0.75 mg subcut WEEKLY 10/14/22 10/14/22 History subcutaneous pen injector (Trulicity) ergocalciferol (vitamin D2) 1,250 1,250 mcg PO WEEKLY 10/14/22 10/14/22 History mcg (50,000 unit) capsule metformin 500 mg tablet,extended 500 mg PO DAILY 10/14/22 10/14/22 History release 24 hr pantoprazole 40 mg tablet,delayed 40 mg PO DAILY 10/14/22 10/14/22 History release Patient hx anesthesia problems: none Family hx anesthesia problems: none Results Review: All pre-operative results and documents have been reviewed as part of the pre-operative evaluation. [facility] Past Medical History Medical History Anemia Arthritis Figueroa's palsy Endometriosis GERD (gastroesophageal reflux disease) Morbid obesity Pelvic inflammatory disease Pneumonia Strep throat Surgical History Surgical History H/O tubal ligation Social History Social History Smoking status: Never smoker Alcohol intake: current Alcohol use details: occasional Substance use: never Substance use type: does not use Living arrangements: with family Additional living arrangements comments: CHILDREN Gender identity (if verbalized by the patient): Female Spiritual care concerns: No Anes - Eval Final PreProcedure Day of Procedure 10/28/22 11:29 Patient weight: morbidly obese Heart: regular rate and rhythm Lungs: clear to auscultation Airway: Mallampati scale class II Neurological: alert and oriented Last oral intake: >/= 8 hours ASA classification: III Emergent: no Anesthetic plan: proceed Anesthesia type and monitoring: general GIVS and standard monitoring Results Review: All pre-operative results and documents have been reviewed as part of the pre-operative evaluation. Informed Consent: The patient's anesthetic plan and its attendant risks and benefits were discussed with the patient/family/POA. Questions were solicited and answers provided to the satisfaction of the patient/family/POA.
[2022-10-28 11:37] LABS: Glucose Point of Care 86 mg/dl (65-105)
--- NOTE | 2022-10-28 12:40 | SUR.OPER ---
egd: scope in 1224, scope out 1227 colon: scope in 1234, scope out 1240
[2022-10-28 12:44] VITALS: BP 119/89; PULSE 82; RESP 20; O2SAT 100
[2022-10-28 12:54] VITALS: BP 144/88; PULSE 64; RESP 23; O2SAT 100
[2022-10-28 13:04] VITALS: BP 144/85; PULSE 65; RESP 20; O2SAT 100
== END 2022-10-28 13:20 | disposition home or self-care (01) ==
PROVIDERS: PCP Nurse Practitioner Family; Visit Provider Internal Medicine Gastroenterology
PROC: 0DJ08ZZ Inspection of Upper Intestinal Tract, Via Natural or Artificial Opening Endoscopic (ICD-10-PCS; CPT 43235; principal; 2022-10-28 12:30)
DX: D50.9 Iron deficiency anemia, unspecified (principal); K21.00 Gastro-esophageal reflux disease with esophagitis, without bleeding; K44.9 Diaphragmatic hernia without obstruction or gangrene; Z80.0 Family history of malignant neoplasm of digestive organs; Z79.899 Other long term (current) drug therapy; Z79.84 Long term (current) use of oral hypoglycemic drugs; E66.01 Morbid (severe) obesity due to excess calories; Z68.43 Body mass index [BMI] 50.0-59.9, adult
CPT/HCPCS: 45378; 43239; 82948; 88305; J2704; J7120

== ENCOUNTER 2024-02-07 13:42 | Outpatient (CLI) | payer OTHER, SELFPAY ==
--- NOTE | 2024-02-07 13:50 | ECG_ITS ---
Test Date: 2024-02-07 14:20:00 Measurements Intervals [place] Rate: 77 P: 30 SD: 170 QRS: 14 QRSD: 97 T: 0 QT: 380 QTc: 430 Interpretive Statements SINUS RHYTHM POSSIBLE ANTERIOR MYOCARDIAL INFARCTION [30 ms Q WAVE IN V3/V4, OR R < 0.2 mV IN V4], OF INDETERMINATE AGE No previous ECG available for comparison Electronically Signed On 02-08-2024 14:24:47 CDT by Quynh eCdeno M.D.
[2024-02-07 14:38] LABS: Alanine Aminotransferase 18 U/L (6-35); Albumin Level 4.2 g/dL (3.5-5.1); Alkaline Phosphatase 86 U/L (38-126); Anion Gap 10 mmol/L (4-12); Aspartate Amino Transferase 25 U/L (14-36); Bilirubin,Total 0.2 mg/dL (0.2-1.3); Blood Urea Nitrogen 9 mg/dL (7-17); Calcium 8.8 mg/dL (8.4-10.2); Carbon Dioxide 26 mmol/L (22-30); Chloride 102 mmol/L (98-107); Estimated Glomerular Filt Rate > 60; Glucose 108 mg/dL (65-110); Potassium 3.6 mmol/L (3.4-5.0); Sodium 138 mmol/L (137-145)
== END 2024-02-07 13:43 | disposition home or self-care (01) ==
PROVIDERS: Visit Provider Obstetrics & Gynecology
DX: N92.0 Excessive and frequent menstruation with regular cycle (principal); I10 Essential (primary) hypertension; E11.9 Type 2 diabetes mellitus without complications
CPT/HCPCS: 36415; 80053; 86850; 86900; 86901; 93005

== ENCOUNTER 2024-02-14 01:21 | Day surgery (SDC) | payer OTHER, SELFPAY ==
[2024-02-06 10:42] VITALS: BMI 54.5
--- NOTE | 2024-02-06 12:09 | PC.NURSE ---
Report to the Outpatient Waiting Room, entrance under the green pavilion located off [facility], at time _0600AM on date _02/14/24 . Planned Procedure Time: __0730AM . Time changes happen often and if your time is changed the preop area will call you the afternoon before. - You and your visitor will be asked to self-screen and do not enter if you have any COVID symptoms. - A mask is optional within the hospital at this time. Patients may have clear liquids (water, carbonated beverages, clear teas, apple juice) until 3 hours prior to surgery with a maximum of 20 ounces. - No food from midnight until time of surgery BRING AN OVERNIGHT BAG FOR YOUR ADMISSION - Take the following medications with a SIP of water the morning of surgery: NONE DO NOT STOP ANY OF YOUR OTHER PRESCRIPTION MEDICATIONS PRIOR TO SURGERY ?EXCEPT THE FOLLOWING Medications to discontinue per physician _VITAMINS/SUPPLEMENTS 02/11/24; CONSULT DR. STILL RE: WHEN TO HOLD MOBIC; CONTINUE WEGOVY FOR BLOOD SUGAR MANAGEMENT Date to take last dose Please no make-up, nail german, hairspray, perfume, deodorant, or body powder the day of surgery. No jewelry (including any body piercings) or valuables the day of surgery, leave them at home. Please take a shower or bath the night before, or the morning of, surgery with an antibacterial soap. Wear comfortable, loose fitting clothing. - Jewelry must be removed prior to entering the operating room. Rings and piercings that are not removed may be cut off. - The hospital will not accept responsibility for valuables. - Please leave all valuables, including medications, at home the day of surgery. If you are going home after surgery, a licensed cdl bulk driver must drive you home. - NO public transportation without another adult if you receive anesthesia. - We recommend that an adult stay with you for 24 hours following discharge. - We also recommend that you do not drive, make important decision, drink alcoholic beverages, or take any drugs that were not prescribed by your health care provider for at least 24 hours after your discharge time. Follow any additional instructions given to you from your surgeon. If you or anyone in your household have experienced Covid symptoms in the past week, please notify your surgeon or the nurse liaison at the phone number below for possible testing. Telephone instructions given to __BRENDEN and asked if any additional questions and then verbalized understanding. Patient advised to call surgeon office or pre surgery nurse liaison [phone] if any additional questions.
[2024-02-14] VITALS (13 sets, daily range): BP systolic 129–165; BP diastolic 69–100; PULSE 68–81; RESP 15–20; TEMP 36.6–37.2; O2SAT 97–100
--- NOTE | ~2024-02-14 | XR_ITS ---
EXAMINATION: XR retrograde pyelo w/stent BI DATE: 02/14/2024 08:28 INDICATION: Bilateral ureteral stent placement TECHNIQUE: Fluoroscopic images from a bilateral ureteral stent placement are submitted for review. 26 seconds of fluoroscopy time. FINDINGS: There is a bilateral double-J internal ureteral stent projecting in expected position, with proximal [place] loop at the level of the renal pelvis. IMPRESSION: 1. Bilateral internal ureteral stent placement. Please refer to real-time procedural findings for d etails. Reviewed, dictated and finalized at location B. IMPRESSION: 1. Bilateral internal ureteral stent placement. Please refer to real-time pro cedural findings for details.
[2024-02-14] MEDS: KETOROLAC 15 MG/ML VIAL (*BKC) IV PUSH (06:30)
[2024-02-14] MEDS: LACTATED RINGERS 1,000 ML 30 ML IV CONT ×2 (06:30→10:25)
[2024-02-14] MEDS: ACETAMINOPHEN 500 MG TABLET 1000 MG PO (06:30)
--- NOTE | 2024-02-14 06:45 | WPDANESEPPF ---
Anes - Initial Pre Proc Eval Procedure: Operation Date: 02/14/24 07:30 Proposed Procedures p Total Laparoscopic Hysterectomy with Bilateral Salpingo-oophorectomy - Guillermo Zavala MD s Bilateral Stent Placement for Abdominal Surgery - Dolores Jansen MD Date/Time: 02/14/24 06:45 Surgeon: Guillermo Zavala MD Pre Op Diagnosis: Menorrhagia Patient Data Age: 38 Gender: F Height: 1.57 m Weight: 135.2 kg Allergies Allergy/AdvReac Type Severity Reaction Status Date / Time hydrocodone AdvReac Mild Nausea Verified 07/20/23 14:35 Home Medications Medication Instructions Recorded Confirmed Type ascorbic acid (vitamin C) 500 mg 500 mg PO DAILY 05/26/21 02/06/24 History tablet (Vitamin C) multivitamin 1 tablet PO DAILY 05/26/21 02/06/24 History ergocalciferol (vitamin D2) 1,250 1,250 mcg PO WEEKLY 10/14/22 02/06/24 History mcg (50,000 unit) capsule pantoprazole 40 mg tablet,delayed 40 mg PO DAILY 10/14/22 02/06/24 History release tirzepatide 5 mg/0.5 mL 5 mg subcut WEEKLY 07/20/23 02/06/24 History subcutaneous pen injector (Mounjaro) meloxicam 15 mg tablet See Rx Instructions .Route 02/06/24 02/06/24 Rx .COMPLEX #30 tabs Patient hx anesthesia problems: none Family hx anesthesia problems: none Results Review: All pre-operative results and documents have been reviewed as part of the pre-operative evaluation. REPLACED BY [facility] Past Medical History Medical History Anemia Arthritis Figueroa's palsy Endometriosis GERD (gastroesophageal reflux disease) Morbid obesity Pelvic inflammatory disease Pneumonia Strep throat Surgical History Surgical History H/O tubal ligation Social History Social History Smoking status: Never smoker Alcohol intake: never Drinks per week: 2 Alcohol use details: occasional Substance use: never Substance use type: does not use Do You Feel Safe in your Home?: Yes Lack of Transportation: No Lack of Food: Never True Current Housing: I Have Housing Concerned About Future Housing: No Difficulty Paying Gas/Electric Bills: No Difficulty Paying for Meds: No Currently Unemployed: No Education: High School Diploma/GED Difficulty w/ Childcare or Family Care: No Living arrangements: with family Additional living arrangements comments: CHILDREN Gender identity (if verbalized by the patient): Female Spiritual care concerns: Yes (NO BLOOD) Anes - Eval Final PreProcedure Day of Procedure 02/14/24 06:45 Patient weight: morbidly obese Heart: regular rate and rhythm Lungs: clear to auscultation Airway: Mallampati scale class II and special considerations (Missing lower tooth L side. ) Neurological: alert and oriented Last oral intake: >/= 8 hours ASA classification: III Emergent: no Anesthetic plan: proceed Anesthesia type and monitoring: general ETT and standard monitoring Results Review: All pre-operative results and documents have been reviewed as part of the pre-operative evaluation. MO, suspect EDIN but never had formal sleep study. Pt states that she can walk 1-2 fos without cp or sob. Informed Consent: The patient's anesthetic plan and its attendant risks and benefits were discussed with the patient/family/POA. Questions were solicited and answers provided to the satisfaction of the patient/family/POA.
[2024-02-14 07:13] LABS: Glucose Point of Care 92 mg/dl (65-105)
--- NOTE | 2024-02-14 07:15 | WPDHPUPDATE1 ---
History and Physical Update Update Date/Time: 02/14/24 07:15 History and Physical has been reviewed, including an updated exam of the patient. There are NO changes in the patient's condition. Risks, benefits, and alternatives have been discussed and questions answered. Patient agrees to proceed with procedure.
--- NOTE | 2024-02-14 07:40 | P.HP_ITS ---
H&P: HPI History of Present Illness Date/Time: 02/14/24 07:40 Chief Complaint: Desire for ureteral identification [facility] Past Medical History Medical History (Updated 02/14/24 @ 07:41 by Dolores Jansen MD) Anemia Arthritis Figueroa's palsy Endometriosis GERD (gastroesophageal reflux disease) Morbid obesity Pelvic inflammatory disease Pneumonia Strep throat Surgical History Surgical History H/O tubal ligation Social History Social History Smoking status: Never smoker Alcohol intake: never Drinks per week: 2 Alcohol use details: occasional Substance use: never Substance use type: does not use Do You Feel Safe in your Home?: Yes Lack of Transportation: No Lack of Food: Never True Current Housing: I Have Housing Concerned About Future Housing: No Difficulty Paying Gas/Electric Bills: No Difficulty Paying for Meds: No Currently Unemployed: No Education: High School Diploma/GED Difficulty w/ Childcare or Family Care: No Living arrangements: with family Additional living arrangements comments: CHILDREN Gender identity (if verbalized by the patient): Female Spiritual care concerns: Yes (NO BLOOD) Meds Home Medications and Allergies Home Medications Medication Instructions Recorded Confirmed Type ascorbic acid (vitamin C) 500 mg 500 mg PO DAILY 05/26/21 02/06/24 History tablet (Vitamin C) multivitamin 1 tablet PO DAILY 05/26/21 02/06/24 History ergocalciferol (vitamin D2) 1,250 1,250 mcg PO WEEKLY 10/14/22 02/06/24 History mcg (50,000 unit) capsule pantoprazole 40 mg tablet,delayed 40 mg PO DAILY 10/14/22 02/06/24 History release tirzepatide 5 mg/0.5 mL 5 mg subcut WEEKLY 07/20/23 02/06/24 History subcutaneous pen injector (Mounjaro) meloxicam 15 mg tablet See Rx Instructions .Route 02/06/24 02/06/24 Rx .COMPLEX #30 tabs Allergies Allergy/AdvReac Type Severity Reaction Status Date / Time hydrocodone AdvReac Mild Nausea Verified 07/20/23 14:35 Exam Narrative: soft, nontender, nondistended pt awake and alert in no acute distress Assessment and Plan Assessment and plan (1) Morbid obesity: Code(s): E66.01 - Morbid (severe) obesity due to excess calories Status: Acute Plan Plan bilateral internal externa lighted stents for ureteral identification at time of hysterectomy. - risks , benefits and alternatives discussed. pt agrees to proceed
--- NOTE | 2024-02-14 07:40 | WPDHPUPDATE1 ---
History and Physical Update Update Date/Time: 02/14/24 07:40 History and Physical has been reviewed, including an updated exam of the patient. There are NO changes in the patient's condition. Risks, benefits, and alternatives have been discussed and questions answered. Patient agrees to proceed with procedure.
--- NOTE | 2024-02-14 08:26 | P.OP_ITS ---
Procedure Note - Detailed Date of Procedure 02/14/24 Pre-op Diagnosis Menorrhagia Post-op Diagnosis Same (Urethral meatal stenosis) Procedure Performed Cystoscopy Urethral dilation Bilateral internal external lighted ureteral stent insertion Bilateral retrograde pyelogram Surgeon Dolores Jansen MD Anesthesia General Description of Procedure Informed consent was obtained. Patient to the operative. She was given preoperative IV antibiotics. She was induced anesthesia. She was placed in the dorsal lithotomy position. She was prepped and draped. Upon examination the patient had a meatal stenosis of her urethra and cystoscoped not easily pass. We therefore dilated the urethra from 14 to 24 F and this point were able to insert a 22 F cystoscope. There was some mild bleeding from the meatus. Inspection of the bladder revealed no mucosal abnormalities. The patient had bilateral orthotopic orifices. Over a wire, we cannulated the left ureteral orifice and then advanced the lighted stent sheath for approximately 25cm, appropriate placement confirmed with retrograde pyelogram. An identical proc edure was performed on the right side. Again placement was confirmed with retrograde pyelogram. A 16 F Elizalde catheter was inserted with return of clear urine. The stents were secured to the catheter. The case was then turned over to Dr. Zavala. Plan ureteral stent removal at the conclusion of IM[facility] EDITOR operative case Complications No immediate complications Condition Stable
[2024-02-14] MEDS: ceFAZolin SODIUM 1 GM VIAL IRRIGATION (09:46)
--- NOTE | 2024-02-14 09:59 | W.PM.PROC2 ---
Procedure Note - Detailed Date of Procedure 02/14/24 Pre-op Diagnosis Menorrhagia Post-op Diagnosis Same Procedure Performed Total laparoscopic hysterectomy and bilateral salpingo-oophorectomy. Surgeon Guillermo Zavala MD Anesthesia General Indications Menorrhagia Findings Enlarged uterus, redundant intestine colon, normal-appearing tubes and ovaries. Extensive vascularity on the left side of the vaginal. Description of Procedure This patient was taken to the operating room. She was prepped and draped in the dorsal lithotomy position after induction of general anesthesia. Lighted ureteral stents were placed prior to the hysterectomy by Dr. Flores. The uterine manipulator and Leydi cup were placed. This was done with a speculum and tenaculum. The speculum was placed. The cervix was grasped with a tenaculum. The stay sutures were placed at 3 and 9:00 a.m.. The stay sutures of 0 Vicryl were brought through the appropriately sized Leydi cup. The tip of the ELIAN manipulator was placed in the intrauterine cavity. The cup was slid into place around the cervix and into the fornices. It was locked into place. The sutures were then wrapped around the handle and tied under tension. A 5 mm skin incision was made in the left upper quadrant the abdomen. A 5 mm trocar was inserted into the intrauterine cavity under direct visualization of the scope. Pneumoperitoneum was achieved. A left lower quadrant 11 mm incision was made with scalpel. An 11 mm trocar was inserted into the anterior abdominal cavity under direct visualization the scope. A 5 mm infraumbilical incision was made with a scalpel and a 5 mm trocar was inserted the intra-abdominal cavity under direct visualization of the scope. Bilateral ureteral lysis was performed. This was done from the pelvic brim down to the uterine artery. This was done with careful dissection using sharp and blunt dissection. The infundibulopelvic ligaments were isolated after identification of the ureters bilaterally. These infundibulopelvic ligaments were cauterized and transected with LigaSure cautery. The para ovarian tissue was cauterized and transected with LigaSure cautery bilaterally. Moving around the ovary into the broad ligament the tissue was cauterized transected with LigaSure cautery. The round ligaments were cauterized transected with LigaSure cautery this was all done in a bilateral fashion. In a stepwise fashion along the lateral aspects of the uterus the round ligament and broad ligaments were cauterized transected down to the level of the uterine arteries. A bladder flap was created in the bladder was moved distally to the end of the cervix and over the Leydi cup. The bilateral uterine arteries were cauterized and transected. Colpotomy was then performed. In a circumferential fashion the vagina was transected using unipolar cautery. The incision was made down on the Leydi cup. The uterus, cervix, fallopian tubes and ovaries were taken out through the vagina. A pneumo occluder was placed in the vagina. The vaginal cuff was closed with a 0 V lock suture in a running fashion. The pelvis was irrigated with copious amounts antibiotic irrigation. The ureters were again examined and found to be intact and flowing freely under the uterine arteries into the bladder. Cystoscopy was performed. The cystoscope was inserted in the ureteral orifices were examined. methylene blue had been previously given was seen to egress from both ureteral orifices. The bladder was intact . The cystoscope was withdrawn. The vagina was irrigated with Betadine solution after removal of the Pneumo occluder. The patient was taken to recovery room. She was stable condition. Sponge lap and needle counts were correct x2. Drains Yes Packing No Pathology Yes Complications No immediate complications Condition Stable Disposition Floor
[2024-02-14] MEDS: fentaNYL CITRATE INJ (*CRX) 100 MCG/2 ML VIAL 25 MCG IV PUSH ×6 (10:40→11:29)
[2024-02-14 11:33] LABS: Glucose Point of Care 193 mg/dl (65-105)
[2024-02-14] MEDS: HYDROmorphone HCL INJ (*CRX) 1 MG/ML SYR 0.25 MG IV PUSH ×4 (11:50→12:09)
[2024-02-14] MEDS: DEXTROSE 5%/0.45% SOD CHL 1,000 ML 125 ML IV CONT ×2 (12:58→21:01)
[2024-02-14] MEDS: KETOROLAC 30 MG/ML VIAL (*BKC) IV PUSH ×2 (12:59→19:19)
[2024-02-14] MEDS: SIMETHICONE 80 MG TAB.CHEW PO ×2 (12:59→18:37)
[2024-02-14] MEDS: MORPHINE SULFATE (*CRX) 2 MG/ML INJ IV PUSH ×3 (14:26→23:27)
[2024-02-14] MEDS: ACETAMINOPHEN 325 MG TABLET 650 MG PO ×2 (16:34→23:28)
[2024-02-14] MEDS: ESTRADIOL 7 DAY 0.05 MG PATCH TRANSDERM (19:20)
[2024-02-14] MEDS: ZOLPIDEM TARTRATE (*CRX) 5 MG TABLET PO (20:03)
[2024-02-15] MEDS: MORPHINE SULFATE (*CRX) 2 MG/ML INJ IV PUSH (03:59)
[2024-02-15 04:15] VITALS: BP 124/66; PULSE 68; RESP 20; TEMP 37.2; O2SAT 99
[2024-02-15 05:39] LABS: Basophils Percent Auto 0.1 % (0.2-1.2); Eosinophils Percent Auto 0.1 % (0-4.4); Hematocrit 28.9 % (37.0-47.0); Hemoglobin 9.1 g/dL (12.0-15.0); Immature Granulocyte Percent A 0.7 % (0-0.5); Lymphocytes Absolute Auto 1.84 K/mm3 (0.9-3.2); Lymphocytes Percent Auto 12.4 % (18.3-44.2); Mean Corpuscular HGB Conc 31.5 g/dl (32-36); Mean Corpuscular Hemoglobin 25.6 pg (26-34); Mean Corpuscular Volume 81.4 fl (80-100); Mean Platelet Volume 10.3 fl (7.4-10.4); Monocytes Absolute Auto 0.9 K/mm3 (0.1-0.6); Monocytes Percent Auto 6.3 % (2.6-8.5); Neutrophils Percent Auto 80.4 % (45.5-73.1); Platelet Count Result 456 k/mm3 (150-375); Red Blood Count 3.55 M/mm3 (4.2-5.4); Red Cell Distribution Width 15.1 % (11.5-14.5); White Blood Count 14.9 K/mm3 (4.5-10.0)
[2024-02-15] MEDS: SIMETHICONE 80 MG TAB.CHEW PO (07:38)
[2024-02-15] MEDS: ACETAMINOPHEN 325 MG TABLET 650 MG PO (07:38)
[2024-02-15] MEDS: IBUPROFEN 600 MG TABLET PO (07:38)
[2024-02-15] MEDS: ENOXAPARIN 40 MG/0.4 ML SYRINGE SUB-Q (08:50)
[2024-02-15] MEDS: oxyCODONE HCL (*CRX) 5 MG TAB IR PO (08:50)
[2024-02-15 09:10] VITALS: BP 139/82; PULSE 63; RESP 16; TEMP 36.9; O2SAT 100
--- NOTE | 2024-02-15 09:29 | PM.GYNPNOP ---
RETAIL EVENT ASSISTANT - A/P Postoperative Procedures: Procedures Operation Date: 02/14/24 07:30 Actual Procedure Side Surgeon p Total Laparoscopic Hysterectomy with Bilateral Salpingo-oophorectomy Bilateral Guillermo Zavala MD s Bilateral Stent Placement for Abdominal Surgery Bilateral Dolores Jansen MD Postoperative day: 1 Postoperative status: doing well and other (Tollerating Regular Diet) Postoperative plan: routine post-op care and discharge Time Spent With Patient Time: Total time spent is greater than 50% in coordination of care (as documented) at patient's floor/unit and/or counseling patient: Time with patient: 15 - 25 minutes RETAIL EVENT ASSISTANT- PN:Subj Post-Op Subjective Date/time seen: 02/15/24 09:29 Subjective: patient reports feeling better, pain is well controlled and patient is tolerating oral intake Exam Const: General: cooperative, healthy appearing, comfortable and no acute distress Resp: Auscultation: no crackles, no rales, no rhonchi and no wheezes Cardio: Rhythm: regular rhythm Heart sounds: no click and no murmurs GI: Inspection: non-distended Auscultation: normal bowel sounds Other: Incisions - CDI Extrem: General: normal to inspection, no pedal edema and no calf tenderness RETAIL EVENT ASSISTANT - PN: Obj Data Vital Signs Vital Signs: Vital Signs - 24 hr 02/14/24 10:25 02/14/24 10:40 02/14/24 10:55 Temperature 99 F Pulse Rate 81 71 68 Respiratory Rate 18 17 15 Blood Pressure 149/93 H 157/82 H 149/95 H Pulse Oximetry 100 100 100 Oxygen Delivery Simple Face Mask Simple Face Mask Simple Face Mask Oxygen Flow Rate 8 8 8 02/14/24 11:10 02/14/24 11:25 02/14/24 11:40 Temperature Pulse Rate 76 75 76 Respiratory Rate 18 20 17 Blood Pressure 152/92 H 151/98 H 165/93 H Pulse Oximetry 99 98 99 Oxygen Delivery Room Air Room Air Room Air Oxygen Flow Rate 02/14/24 11:55 02/14/24 12:10 02/14/24 12:22 Temperature 97.8 F Pulse Rate 80 75 77 Respiratory Rate 20 19 16 Blood Pressure 146/86 H 151/95 H 141/82 H Pulse Oximetry 100 98 98 Oxygen Delivery Room Air Room Air Room Air Oxygen Flow Rate 02/14/24 12:40 02/14/24 18:34 02/14/24 21:42 Temperature 97.9 F 98.2 F Pulse Rate 68 75 74 Respiratory Rate 18 18 Blood Pressure 163/100 H 156/100 H 129/69 Pulse Oximetry 100 97 Oxygen Delivery Oxygen Flow Rate 02/15/24 04:15 02/15/24 07:30 Temperature 98.9 F Pulse Rate 68 Respiratory Rate 20 Blood Pressure 124/66 Pulse Oximetry 99 Oxygen Delivery Room Air Oxygen Flow Rate Intake/Output Intake/Output: Intake & Output 02/12/24 02/13/24 02/14/24 02/15/24 23:59 23:59 23:59 23:59 Intake Total 1440 1270 Output Total 1600 1250 Balance -160 20 Meds/Results Medications: Active Medications Generic Name Dose Route Start Last Admin Trade Name Freq PRN Reason Stop Dose Admin Acetaminophen 650 mg 02/14/24 15:55 02/15/24 07:38 Acetaminophen 325 Mg Tablet PO 650 mg Q6H PRN Administration Headache Amlodipine Besylate 5 mg 02/14/24 21:00 02/14/24 19:20 Amlodipine Besylate 5 Mg Tablet PO Not Given HS PAUL Enoxaparin Sodium 40 mg 02/15/24 09:00 02/15/24 08:50 Enoxaparin 40 Mg/0.4 Ml Syringe SUB-Q 40 mg DAILY PAUL Administration Estradiol 0.05 mg 02/14/24 12:24 02/14/24 19:20 Estradiol 7 Day 0.05 Mg Patch TRANSDERM 0.05 mg WEEKLY PAUL Administration Dextrose/Sodium Chloride 1,000 mls @ 125 mls/hr 02/14/24 12:24 02/15/24 06:44 Dextrose 5% Sodium Chloride 0.45% IV CONT Not Given .Q8H PAUL Ibuprofen 600 mg 02/14/24 12:24 02/15/24 07:38 Ibuprofen 600 Mg Tablet PO 600 mg Q6H PRN Administration Cramping Ketorolac Tromethamine 30 mg 02/14/24 12:24 02/14/24 19:19 Ketorolac 30 Mg/Ml Vial (*Bkc) IV PUSH 02/19/24 12:23 30 mg Q6H PRN Administration Pain Rated 4-6 Morphine Sulfate 2 mg 02/14/24 13:56 02/15/24 03:59 Morphine Sulfate (*Crx) 2 Mg/Ml Inj IV PUSH 2 mg Q4H PRN Admin
== END 2024-02-15 10:20 | disposition home or self-care (01) ==
LOC: ANHSURGERY 05:49 → ANHOB2 12:26
PROVIDERS: Urology; Visit Provider Obstetrics & Gynecology
PROC: 0UT9FZZ Resection of Uterus, Via Natural or Artificial Opening With Percutaneous Endoscopic Assistance (ICD-10-PCS; CPT 58571; principal; 2024-02-14 07:30)
PROC: (CPT 52005; 2024-02-14 07:30)
DX: N92.0 Excessive and frequent menstruation with regular cycle (principal); N88.8 Other specified noninflammatory disorders of cervix uteri; N80.03 Adenomyosis of the uterus; N70.11 Chronic salpingitis; N83.11 Corpus luteum cyst of right ovary; N83.292 Other ovarian cyst, left side; Q43.8 Other specified congenital malformations of intestine; K21.9 Gastro-esophageal reflux disease without esophagitis; E66.01 Morbid (severe) obesity due to excess calories; Z68.43 Body mass index [BMI] 50.0-59.9, adult; Z79.85 Long-term (current) use of injectable non-insulin antidiabetic drugs
CPT/HCPCS: 52005; 58571; 36415; 74420; 82948; 85025; 88307; 99199; A9270; C1758; C1769; J0690; J1100; J1170; J1650; J1885; J2250; J2270; J2405; J2704; J3010; J7030; J7120; Q9966; Q9968

== ENCOUNTER 2024-02-24 09:21 | Inpatient (IN) | payer OTHER, SELFPAY ==
[2024-02-24] VITALS (13 sets, daily range): BP systolic 110–150; BP diastolic 71–87; PULSE 89–123; RESP 16–23; TEMP 36–39.6; O2SAT 93–100; BMI 55.2
--- NOTE | ~2024-02-24 | XR_ITS ---
EXAMINATION: XR chest 1V DATE: 02/26/2024 12:36 INDICATION: Tachycardia. TECHNIQUE: A single frontal view of the chest was obtained. COMPARISON: Chest 2 views 06/13/22, CT abdomen and pelvis 02/24/2024 FINDINGS: There is mild elevation of right hemidiaphragm. No pneumonia, pleural effusion, or pneumoth orax. The heart size is normal. IMPRESSION: 1. No acute cardiopulmonary disease. Reviewed, dictated and finalized at location A.
--- NOTE | ~2024-02-24 | CT_ITS ---
EXAMINATION: CT guide absc cath placement DATE: 02/26/2024 12:39 INDICATION: Pelvic abscess. TECHNIQUE: The procedure including the risks, benefits, and alternatives was discussed with the patie nt. Risks discussed included bleeding and infection. The patient understood the risks and benefits an d agreed to proceed. The skin overlying the abdomen was prepped and draped in usual sterile fashion. Anesthetic was administered with 1% lidocaine subcutaneously. 100 mcg fentanyl IV was given for pain control. An 18 gauge trochar needle was inserted into the pelvic abscess with CT guidance. The needl e was exchanged over a wire for 5 Serbian, 7 Serbian, and 9 Serbian dilators and then for an 8.5 Serbian pigtail catheter. The catheter was stitched to the skin, and a sterile dressing was applied. The mA w as adjusted according to patient size. Iterative reconstruction technique was employed. The dose-lauri th product was 308.71 mGy-cm. There were no immediate complications. FINDINGS: CT images demonstrate the catheter within the pelvic abscess. 6 mL fluid was aspirated for testing. IMPRESSION: 1. Successful CT-guided pelvic abscess drainage. 2. 6 mL grossly bloody fluid was sent for aerobic and anaerobic cultures. Reviewed, dictated and finalized at location A.
--- NOTE | ~2024-02-24 | CT_ITS ---
EXAMINATION: CT abdomen pelvis w con DATE: 02/24/2024 11:29 INDICATION: Right lower quadrant abdominal tenderness to palpation. TECHNIQUE: Computed tomography (CT) of the abdomen and pelvis was performed with 100 mL Omnipaque 350 intravenous contrast. Automated exposure control and iterative reconstruction technique were employe d. The dose-length product was 1533.81 mGy-cm. COMPARISON: CT abdomen and pelvis 06/29/2022 FINDINGS: The visualized portions of the lung bases demonstrate minimal atelectasis. No pleural effus ion. The heart is normal. No pericardial effusion. The liver, gallbladder, spleen, pancreas, and adre nal glands are normal. There is mild right hydronephrosis. Left kidney is normal. There is an 8.7 x 5 .8 x 6.7 cm rim-enhancing fluid collection with gas in the hysterectomy bed, consistent with abscess. There is an umbilical hernia containing fat. There are no dilated loops of bowel. The appendix is no rmal. There is no pathologically enlarged lymph nodes. There is mild thoracic and lumbar spondylosis. IMPRESSION: 1. 8.7 x 5.8 x 6.7 cm abscess in the hysterectomy bed. 2. Mild right hydronephrosis secondary to the abscess. Reviewed, dictated and finalized at location A.
--- NOTE | ~2024-02-24 | US_ITS ---
EXAMINATION: US renal BI DATE: 02/26/2024 21:57 INDICATION: Acute kidney injury TECHNIQUE: Multiple grayscale and Doppler ultrasound images of the kidneys were obtained. COMPARISON: CT abdomen pelvis 02/24/2024. FINDINGS: The right kidney measures 11.5 x 5.0 x 4.9 cm. The left kidney measures 12.0 x 6.2 x 6.3 cm. The kidn eys demonstrate normal parenchymal echogenicity. There is mild right pelviectasis. The bladder is emp ty which limits evaluation. IMPRESSION: Minimal right pelviectasis, similar to slightly improved from the prior examination, given interval d ifference in technique. Reviewed, dictated and finalized at location K. IMPRESSION: Minimal right pelviectasis, similar to slightly improved from the prior examina tion, given interval difference in technique.
--- NOTE | 2024-02-24 10:27 | ED.ABDPAIN ---
HPI - Abdominal Pain General Chief Complaint: Abdominal Pain Stated Complaint: abdominal pain after hysterectomy Time Seen by Provider: 02/24/24 09:59 Source: patient and family (Mother) Mode of arrival: ambulatory Limitations: no limitations History of Present Illness HPI narrative: Patient presents with low abdominal pain following a hysterectomy on 02/14/2024 with Ob Gyne doctor Lucas. She was on a course of antibiotics for urinary tract infection for 3 days and has been trying to take Gas-X, Rolaids, as well as pain medications which include Oxy, Tylenol, ibuprofen. She is having small nonbloody bowel movements. She continues to pass flatus but notes that she has pain when doing so. Denies any other vaginal bleeding. Denies any fever but has been having chills. She is feeling nauseated and had 1 episode of nonbloody emesis this morning. Prior to the hysterectomy she was on iron infusions. Related Data Home Medications Medication Instructions Recorded Confirmed ascorbic acid (vitamin C) 500 mg 500 mg PO DAILY 05/26/21 02/14/24 tablet (Vitamin C) multivitamin 1 tablet PO DAILY 05/26/21 02/14/24 ergocalciferol (vitamin D2) 1,250 1,250 mcg PO WEEKLY 10/14/22 02/14/24 mcg (50,000 unit) capsule pantoprazole 40 mg tablet,delayed 40 mg PO DAILY 10/14/22 02/14/24 release tirzepatide 5 mg/0.5 mL 5 mg subcut WEEKLY 07/20/23 02/14/24 subcutaneous pen injector (Mounjaro) Allergies Allergy/AdvReac Type Severity Reaction Status Date / Time hydrocodone AdvReac Mild Nausea Verified 02/24/24 09:43 [facility] Past Medical History Medical History (Updated 02/24/24 @ 12:00 by Naima Zuñiga MD) Anemia Arthritis Figueroa's palsy Endometriosis GERD (gastroesophageal reflux disease) Morbid obesity Pelvic inflammatory disease Pneumonia Strep throat Ureteral stent present x2 from 02/14/24 Surgical History Surgical History H/O bilateral salpingo-oophorectomy 02/14/24 H/O tubal ligation S/P laparoscopic hysterectomy 02/14/24 Social History Social History Smoking status: Never smoker Alcohol intake: never Drinks per week: 2 Alcohol use details: occasional Substance use: never Substance use type: does not use Do You Feel Safe in your Home?: Yes Lack of Transportation: No Lack of Food: Never True Current Housing: I Have Housing Concerned About Future Housing: No Difficulty Paying Gas/Electric Bills: No Difficulty Paying for Meds: No Currently Unemployed: No Education: High School Diploma/GED Difficulty w/ Childcare or Family Care: No Living arrangements: with family Additional living arrangements comments: CHILDREN Gender identity (if verbalized by the patient): Female Spiritual care concerns: Yes (NO BLOOD) Exam Narrative: GENERAL: Well-appearing, well-nourished, and in no acute distress. HEAD: Normocephalic, atraumatic. EYES: Non injected, non icteric ENT: Nares clear, no rhinorrhea or epistaxis. NECK: Supple. CHEST: Speaking in full sentences. No respiratory distress. HEART: Tachycardic rate and rhythm. . ABDOMEN: Soft, nondistended. Tenderness to palpation in the right lower quadrant without rigidity. Not peritoneal. Morbid obesity. EXTREMITIES: Normal range of motion. No lower extremity edema. SKIN: Warm, dry, no rash. NEURO: No focal deficits. Alert and oriented x3. PSYCH: Normal mood and affect. Course Vital Signs Vital signs: Vital Signs Temperature 98.0 F 02/24/24 09:25 Pulse Rate 123 H 02/24/24 09:25 Respiratory Rate 23 H 02/24/24 09:25 Blood Pressure 110/83 02/24/24 09:25 Pulse Oximetry 96 02/24/24 09:25 Oxygen Delivery Room Air 02/24/24 09:25 Temperature 98.0 F 02/24/24 09:25 Pulse Rate 102 H 02/24/24 11:46 Respiratory Rate 23 H 02/24/24 11:46 Blood Pressure 150/79 H 02/24/24 11:45 P
[2024-02-24 10:36] LABS: Basophils Absolute Auto 0.1 K/mm3 (0.0-0.1); Basophils Percent Auto 0.2 % (0.2-1.2); Hematocrit 28.8 % (37.0-47.0); Immature Granulocyte Absolute 0.22 K/mm3 (0.00-0.031); Immature Granulocyte Percent A 0.9 % (0-0.5); Lymphocytes Absolute Auto 1.51 K/mm3 (0.9-3.2); Lymphocytes Percent Auto 6.3 % (18.3-44.2); Mean Corpuscular HGB Conc 31.3 g/dl (32-36); Mean Corpuscular Hemoglobin 24.7 pg (26-34); Mean Corpuscular Volume 78.9 fl (80-100); Mean Platelet Volume 9.7 fl (7.4-10.4); Monocytes Absolute Auto 1.3 K/mm3 (0.1-0.6); Monocytes Percent Auto 5.6 % (2.6-8.5); Neutrophils Absolute Auto 20.8 K/mm3 (1.3-6.7); Platelet Count Result 599 k/mm3 (150-375); Red Blood Count 3.65 M/mm3 (4.2-5.4); Red Cell Distribution Width 14.9 % (11.5-14.5)
[2024-02-24 10:48] LABS: Lactic Acid Reflex 1.4 mmol/L (0.7-2.0)
[2024-02-24 10:50] LABS: Alanine Aminotransferase 32 U/L (6-35); Albumin Level 4.2 g/dL (3.5-5.1); Alkaline Phosphatase 149 U/L (38-126); Anion Gap 14 mmol/L (4-12); Aspartate Amino Transferase 37 U/L (14-36); Bilirubin,Total 1.1 mg/dL (0.2-1.3); Blood Urea Nitrogen 7 mg/dL (7-17); Calcium 9.1 mg/dL (8.4-10.2); Carbon Dioxide 22 mmol/L (22-30); Chloride 98 mmol/L (98-107); Estimated CRCL calculation 128 ml/min; Estimated Glomerular Filt Rate > 60; Glucose 134 mg/dL (65-110); Magnesium 1.8 mg/dL (1.6-2.3); Potassium 3.8 mmol/L (3.4-5.0); Sodium 134 mmol/L (137-145)
[2024-02-24 10:51] LABS: Add Urine Microscopic? YES; Appearance Urine Cloudy (Clear); Bacteria Urine 4+ /hpf; Bilirubin Urine 1+ (Negative); Blood Urine Negative (Negative); Color Urine Dark Yellow (Yellow); Glucose Urine UA Negative (Negative); Ketones Urine Trace mg/dL (Negative); Leukocyte Esterase Ur Trace LEU/UL (Negative); Need Manual Microscopic Reviewed; Nitrate Urine Negative (Negative); Non Pathogenic Casts 0-2; Protein Urine 1+ mg/dL (Negative); Squamous Epithelial Cell Urine Many /hpf (Few)
[2024-02-24 10:54] LABS: INR 1.2; Partial Thromboplastin Time 32.7 Seconds (22.3-36.8); Prothrombin Time 15.9 Seconds (11.1-14.7)
[2024-02-24] MEDS: ONDANSETRON INJ 4 MG/2 ML VIAL IV PUSH (10:57)
[2024-02-24] MEDS: SODIUM CHLORIDE 0.9% IV 1,000 ML 999 ML IV CONT (10:57)
[2024-02-24] MEDS: MORPHINE SULFATE (*CRX) 4 MG/ML INJ 8 MG IV PUSH ×4 (11:01→20:20)
[2024-02-24] MEDS: metroNIDAZOLE 500 MG/ISO 100ML 500 MG/100 ML BAG 100 MG IVPB ×2 (12:18→21:07)
--- NOTE | 2024-02-24 13:35 | ADMGEN ---
This patient, Sara Gutierrez, was admitted to 3 [facility] Surg Room 301-01. Patient/family oriented to hospital policies and general routines including ID bracelet, bed and alarms, visiting hours, pain management, procedures, bathroom and other care routines, personal items, smoking policy, room service/diet, and visiting hours. Information on how to activate the Rapid Response Team has been discussed. Patient/Family are encouraged to report perceived risks to care and to ask questions if they do not understand what they are told or what they should do.
[2024-02-24] MEDS: LACTATED RINGERS 1,000 ML 125 ML IV CONT (14:17)
[2024-02-24] MEDS: PIPERACILLIN/TAZ 4.5G/NS 100ML 4.5 GM/100 ML BAG IVPB (14:17)
[2024-02-24] MEDS: ACETAMINOPHEN 500 MG TABLET 1000 MG PO (20:19)
[2024-02-24] MEDS: PIPERACILLN/TAZ 3.375GM/NS50ML 3.375 GM/50 ML BAG IVPB (20:20)
[2024-02-25] MEDS: MORPHINE SULFATE (*CRX) 4 MG/ML INJ 8 MG IV PUSH ×3 (01:02→06:30)
[2024-02-25] MEDS: LACTATED RINGERS 1,000 ML 125 ML IV CONT ×2 (01:05→20:52)
[2024-02-25] MEDS: PIPERACILLN/TAZ 3.375GM/NS50ML 3.375 GM/50 ML BAG IVPB ×4 (02:59→20:52)
[2024-02-25] MEDS: metroNIDAZOLE 500 MG/ISO 100ML 500 MG/100 ML BAG 100 MG IVPB ×4 (03:40→21:42)
[2024-02-25 05:44] VITALS: BP 111/60; PULSE 110; RESP 13; TEMP 37.2; O2SAT 94
[2024-02-25] MEDS: HYDROmorphone HCL INJ (*CRX) 1 MG/ML SYR IV PUSH (08:45)
--- NOTE | 2024-02-25 10:09 | PM.IMHP ---
H&P: [facility] History of Present Illness Date/Time: 02/25/24 10:09 Chief Complaint: Pelvic pain Narrative: this patient is a 38-year-old female who is postop day number 10 from a laparoscopic hysterectomy. She developed pain in her pelvis and pressure in her rectum. She reports malaise and elevated body temperature. Denies any abnormal vaginal discharge/foul vaginal discharge. She denies any vaginal bleeding. She denies any nausea , vomiting or chills. she denies any chest pain shortness of breath. Treat her pain as 8/10. It is localized to the pelvis. It does not radiate. It has gotten worse over the last 3 days. Review of Systems Review of Systems: All systems reviewed & are unremarkable except as noted in HPI and below Constitutional: Constitutional: Denies chills, Denies fatigue, Denies fever(s) and Denies weakness Eyes: Eyes: Denies blurry vision, Denies change in vision, Denies loss of peripheral vision, Denies loss of vision, Denies other visual disturbances and Denies eye pain ENT: Denies vertigo, Denies dizziness, Denies hearing loss, Denies mouth pain, Denies nasal obstruction, Denies neck mass and Denies neck pain Cardiovascular: Cardiovascular: Denies chest pain, Denies diaphoresis, Denies syncope, Denies leg edema and Denies dyspnea Respiratory: Respiratory: Denies chest congestion, Denies cough, Denies hemoptysis, Denies dyspnea and Denies wheezing Gastrointestinal: Gastrointestinal: Denies abdominal pain, Denies constipation, Denies diarrhea, Denies nausea and Denies vomiting Genitourinary: Genitourinary: Denies hematuria, Denies change in libido, Denies nocturia, Denies genital lesions, Denies flank pain and Denies urinary urgency Musculoskeletal: Musculoskeletal: Denies abnormal gait, Denies back pain, Denies myalgias, Denies arthralgias, Denies joint swelling, Denies muscle weakness and Denies neck pain Integumentary/Breasts: Skin/Breast: Denies swelling, Denies breast pain, Denies breast mass, Denies dry skin, Denies nipple discharge, Denies unusual bruising and Denies jaundice Neurologic: Denies Neuro-related abnormal movements, Denies Abnormal speech present, Denies abnormal gait, Denies behavioral changes, Denies confusion, Denies vertigo, Denies dizziness, Denies syncope, Denies loss of vision, Denies memory loss, Denies convulsions and Denies weakness Psychiatric: Psychiatric: Denies abnormal sleep pattern, Denies behavioral changes, Denies change in libido, Denies confusion, Denies depression, Denies anhedonia and Denies memory loss Endocrine: Endocrine: Reports no additional endocrine complaints, Denies change in libido and Denies fatigue Hematologic/Lymphatic: Hematologic/Lymphatic: Reports no additional hematologic/lymphatic complaints Allergic/Immunologic: Allergic/Immunologic: Reports no additional allergic/immunologic complaints and Denies wheezing PMFSH Past Medical History Medical History (Updated 02/25/24 @ 10:14 by Guillermo Zavala MD) Anemia Arthritis Figueroa's palsy Endometriosis GERD (gastroesophageal reflux disease) Morbid obesity Pelvic inflammatory disease Pneumonia Strep throat Ureteral stent present x2 from 02/14/24 Surgical History Surgical History H/O bilateral salpingo-oophorectomy 02/14/24 H/O tubal ligation S/P laparoscopic hysterectomy 02/14/24 Social History Social History Smoking status: Never smoker Alcohol intake: current Drinks per week: 1 Alcohol use details: occasional Substance use: never Substance use type: does not use Do You Feel Safe in your Home?: Yes Lack of Transportation: No Lack of Food: Never True Current Housing: I Have Housing Concerned About Future Housing: No Difficulty Paying Gas/Electric Bills: No Difficulty Paying for Meds: No Currently Unemployed: No Education: High School Diploma/GED Dif
[2024-02-25] MEDS: oxyCODONE/ACETAMINOPHEN (*CRX) 10-325 MG TABLET 1 TAB PO ×4 (10:56→23:18)
[2024-02-25] MEDS: DOCUSATE SODIUM 100 MG CAPSULE PO (12:18)
[2024-02-25] MEDS: LACTATED RINGERS 500 ML IV CONT (12:18)
[2024-02-25 14:00] VITALS: BP 132/79; PULSE 114; RESP 18; TEMP 36.3; O2SAT 99
[2024-02-25 16:00] VITALS: TEMP 37.7
--- NOTE | 2024-02-25 20:07 | PC.NURSE ---
Pt was given Percocet at 1508 and vomited pill up at 1510. No other dose was given at that time to replace dose that was regurgitated. Pt was given next dose of Percocet at 1820. Charge nurse and pharmacy notified.
[2024-02-25 22:00] VITALS: BP 130/72; PULSE 120; RESP 16; TEMP 36.1; O2SAT 96
[2024-02-25] MEDS: ONDANSETRON INJ 4 MG/2 ML VIAL IV PUSH (23:18)
[2024-02-26] VITALS (14 sets, daily range): BP systolic 106–145; BP diastolic 71–95; PULSE 89–118; RESP 16–26; TEMP 37.8–38.2; O2SAT 95–100
[2024-02-26] MEDS: HYDROmorphone HCL INJ (*CRX) 1 MG/ML SYR IV PUSH ×3 (00:56→08:43)
[2024-02-26] MEDS: PIPERACILLN/TAZ 3.375GM/NS50ML 3.375 GM/50 ML BAG IVPB ×4 (03:00→21:20)
[2024-02-26] MEDS: metroNIDAZOLE 500 MG/ISO 100ML 500 MG/100 ML BAG 100 MG IVPB ×3 (03:35→15:52)
[2024-02-26] MEDS: ACETAMINOPHEN 500 MG TABLET 1000 MG PO ×2 (04:27→18:19)
[2024-02-26 06:50] LABS: Hematocrit 24.5 % (37.0-47.0); Hemoglobin 7.5 g/dL (12.0-15.0); Mean Corpuscular HGB Conc 30.6 g/dl (32-36); Mean Corpuscular Hemoglobin 24.8 pg (26-34); Mean Corpuscular Volume 81.1 fl (80-100); Mean Platelet Volume 9.7 fl (7.4-10.4); Platelet Count Result 439 k/mm3 (150-375); Red Blood Count 3.02 M/mm3 (4.2-5.4); Red Cell Distribution Width 15.5 % (11.5-14.5); White Blood Count 26.6 K/mm3 (4.5-10.0)
[2024-02-26 07:22] LABS: Band Neutrophils Percent 12 % (0-6); Lymphocytes Absolute Manual 0.26 K/mm3 (1.1-4.5); Lymphocytes Percent Manual 1 % (18-44); Monocytes Absolute Manual 0.79 K/mm3 (0.1-0.90); Monocytes Percent Manual 3 % (3-9); Neutrophils Absolute Manual 25.53 K/mm3 (1.7-7.2); Neutrophils Percent Manual 84 % (46-73); Platelet Estimate Increased (Adequate); Total Cells Counted 100
[2024-02-26 07:23] LABS: Anisocytosis 1+; Hypochromasia 1+; Schistocytes None Seen
--- NOTE | 2024-02-26 07:37 | PM.GYNPNOP ---
INSTRUCTOR PHYSICAL - A/P Assessment and plan (1) Postoperative abscess of pelvis in female: Code(s): T81.49XA - Infection following a procedure, other surgical site, initial encounter; N73.9 - Female pelvic inflammatory disease, unspecified Status: Acute (2) Menopausal symptoms: Code(s): N95.1 - Menopausal and female climacteric states Status: Acute Plan To have CT-guided drain placement today. Experiencing elevated body temperature-know whether it is causal symptoms-Changing to higher dose of estradiol. Tachycardia-additional fluid bolus and drain placement today should improve tachycardia-likely secondary to infection. Time Spent With Patient Time: Total time spent is greater than 50% in coordination of care (as documented) at patient's floor/unit and/or counseling patient: Time with patient: 15 - 25 minutes INSTRUCTOR PHYSICAL- PN:Rashida Post-Op Subjective Date/time seen: 02/26/24 07:37 Patient reports increased body temperature sweating during her sleep. Continued pelvic pain. 0 vomiting. No chest pain shortness of breath. Exam Const: General: cooperative, healthy appearing, comfortable and no acute distress Orientation/consciousness: oriented to person, oriented to place and oriented to time HENMT: Head: normal to inspection Ears: external ears normal Face/Nose/Sinus: Normal external nose present and normal facial exam Face and sinus: normal facial exam Eyes: General: appearance normal, both eyes and all related structures Neck: Neck: normal visual inspection, trachea midline and supple Resp: Auscultation: clear to auscultation bilaterally, no crackles, no rales, no rhonchi and no wheezes Cardio: Rate: regular rate Rhythm: regular rhythm Heart sounds: no click, no murmurs and no rubs GI: GI Palp: No abdominal tenderness, No Soft to palpation, No Tenderness to palpation present (GI), No Palpable mass present and Yes Other GI palpation findings present (Incisions are clean dry and intact.) Auscultation: normal bowel sounds Skin: General skin exam: normal color and no rashes or lesions noted Neuro: General: oriented to person, oriented to place and oriented to time Extrem: General: normal to inspection, no joint enlargement, no clubbing, cyanosis or edema, no pedal edema and no calf tenderness Psych: Appearance: grossly normal Mental Status: mental status grossly normal Speech and movement: Normal speech and movement present INSTRUCTOR PHYSICAL - PN: Obj Data Vital Signs Vital Signs: Vital Signs - 24 hr 02/25/24 09:22 02/25/24 14:00 02/25/24 16:00 Temperature 97.3 F L 99.9 F H Pulse Rate 114 H Respiratory Rate 18 Blood Pressure 132/79 Pulse Oximetry 99 Oxygen Delivery Room Air 02/25/24 22:00 02/26/24 04:27 02/26/24 06:00 Temperature 97.0 F L 100.2 F H 100.2 F H Pulse Rate 120 H 118 H Respiratory Rate 16 20 Blood Pressure 130/72 145/80 H Pulse Oximetry 96 98 Oxygen Delivery Intake/Output Intake/Output: Intake & Output 02/23/24 02/24/24 02/25/24 02/26/24 23:59 23:59 23:59 23:59 Intake Total 2740 3200 200 Balance 2740 3200 200 Meds/Results Medications: Active Medications Generic Name Dose Route Start Last Admin Trade Name Freq PRN Reason Stop Dose Admin Acetaminophen 1,000 mg 02/24/24 20:10 02/26/24 04:27 Acetaminophen 500 Mg Tablet PO 1,000 mg Q6H PRN Administration Mild Pain (1-3) or Fever Docusate Sodium 100 mg 02/25/24 12:04 02/25/24 12:18 Docusate Sodium 100 Mg Capsule PO 100 mg Q12H PRN Administration Constipation Estradiol 2 mg 02/26/24 09:00 Estradiol 1 Mg Tablet PO QAM PAUL Hydromorphone HCl 1 mg 02/25/24 07:45 02/26/24 04:28 Hydromorphone Hcl Inj (*Crx) 1 Mg/Ml Syr IV PUSH 1 mg Q2H PRN Administration Pain Rated 7-10 Lactated Ringer's 1,000 mls @ 125 mls/hr 02/24/24 12:15 02/25/24 20:52 Lr - Lactated Ringers Iv IV CONT 125 mls/hr .Q8H PAUL Administration Piperacillin/Tazobactam/Dextrose
[2024-02-26] MEDS: LACTATED RINGERS 500 ML IV CONT (08:24)
[2024-02-26] MEDS: ONDANSETRON INJ 4 MG/2 ML VIAL IV PUSH (08:42)
--- NOTE | 2024-02-26 10:34 | ECG_ITS ---
Test Date: 2024-02-26 12:54:16 Measurements Intervals [place] Rate: 109 P: 53 PA: 152 QRS: 32 QRSD: 102 T: 1 QT: 312 QTc: 420 Interpretive Statements SINUS TACHYCARDIA NONSPECIFIC ST-T WAVE ABNORMALITY- ANT/INF LEADS BASELINE ARTIFACT- I, II, III, AVL, V4 ABNORMAL ECG Compared to ECG 02/07/2024 14:20:00 HEART RATE HAS INCREASED Electronically Signed On 02-26-2024 14:17:45 CDT by Tony Fall D.O.
--- NOTE | 2024-02-26 11:32 | WPDMODSED ---
Moderate Sedation Note-Pt Data Patient Data Diagnosis: Pelvic abscess. Present Complaint: Pelvic abscess. Procedure to be performed/Plan: CT-guided pelvic abscess drainage. Allergies Allergy/AdvReac Type Severity Reaction Status Date / Time hydrocodone AdvReac Mild Nausea Verified 02/24/24 16:05 Home Medications Medication Instructions Recorded Confirmed Type ascorbic acid (vitamin C) 500 mg 500 mg PO DAILY 05/26/21 02/24/24 History tablet (Vitamin C) multivitamin 1 tablet PO DAILY 05/26/21 02/24/24 History ergocalciferol (vitamin D2) 1,250 1,250 mcg PO WEEKLY 10/14/22 02/25/24 History mcg (50,000 unit) capsule pantoprazole 40 mg tablet,delayed 40 mg PO DAILY 10/14/22 02/24/24 History release tirzepatide 5 mg/0.5 mL 5 mg subcut WEEKLY 07/20/23 02/24/24 History subcutaneous pen injector (Kris) oxycodone-acetaminophen 5 mg-325 1 tablet PO Q4H PRN pain #25 tabs 02/15/24 02/24/24 Rx mg tablet amlodipine 5 mg tablet (Norvasc) 5 mg PO DAILY 02/24/24 02/24/24 History meloxicam 15 mg tablet 15 mg PO DAILY 02/24/24 02/24/24 History Current Medications: Active Medications Acetaminophen (Acetaminophen 500 Mg Tablet) 1,000 mg PO Q6H PRN PRN Reason: Mild Pain (1-3) or Fever Last Admin: 02/26/24 04:27 Dose: 1,000 mg Docusate Sodium (Docusate Sodium 100 Mg Capsule) 100 mg PO Q12H PRN PRN Reason: Constipation Last Admin: 02/25/24 12:18 Dose: 100 mg Estradiol (Estradiol 1 Mg Tablet) 2 mg PO QAM PAUL Hydromorphone HCl (Hydromorphone Hcl Inj (*Crx) 1 Mg/Ml Syr) 1 mg IV PUSH Q2H PRN PRN Reason: Pain Rated 7-10 Last Admin: 02/26/24 08:43 Dose: 1 mg Lactated Ringer's (Lr - Lactated Ringers Iv) 1,000 mls @ 125 mls/hr IV CONT .Q8H PAUL Last Admin: 02/25/24 20:52 Dose: 125 mls/hr Piperacillin/Tazobactam/Dextrose (Zosyn 3.375 Gm/Ns 50 Ml) 3.375 gm in 50 mls @ 100 mls/hr IVPB Q6H PAUL Last Admin: 02/26/24 08:25 Dose: 100 mls/hr Metronidazole (Flagyl 500 Mg/Iso Soln 100 Ml) 500 mg in 100 mls @ 100 mls/hr IVPB Q6H PAUL Last Admin: 02/26/24 08:25 Dose: 100 mls/hr Naloxone HCl (Naloxone Hcl 0.4 Mg/Ml Vial) 0.1 mg IV PUSH Q5MIN PRN PRN Reason: Opioid Reversal Ondansetron HCl (Ondansetron Inj 4 Mg/2 Ml Vial) 4 mg IV PUSH Q4H PRN PRN Reason: Nausea Last Admin: 02/26/24 08:42 Dose: 4 mg Oxycodone/Acetaminophen (Oxycodone/Acetaminophen (*Crx) 10-325 Mg Tablet) 1 tab PO Q4H PRN PRN Reason: Pain Rated 7-10 Last Admin: 02/25/24 23:18 Dose: 1 tab Sedation/Anesthesia: No previous sedation/anesthesia problems (including family history). [facility] Past Medical History Medical History (Updated 02/26/24 @ 07:38 by Guillermo Zavala MD) Anemia Arthritis Figueroa's palsy Endometriosis GERD (gastroesophageal reflux disease) Morbid obesity Pelvic inflammatory disease Pneumonia Strep throat Ureteral stent present x2 from 02/14/24 Surgical History Surgical History H/O bilateral salpingo-oophorectomy 02/14/24 H/O tubal ligation S/P laparoscopic hysterectomy 02/14/24 Social History Social History Smoking status: Never smoker Alcohol intake: current Drinks per week: 1 Alcohol use details: occasional Substance use: never Substance use type: does not use Do You Feel Safe in your Home?: Yes Lack of Transportation: No Lack of Food: Never True Current Housing: I Have Housing Concerned About Future Housing: No Difficulty Paying Gas/Electric Bills: No Difficulty Paying for Meds: No Currently Unemployed: No Education: High School Diploma/GED Difficulty w/ Childcare or Family Care: No Living arrangements: with family Additional living arrangements comments: CHILDREN Gender identity (if verbalized by the patient): Female Spiritual care concerns: No Mod Sed Physical Exam Physical Exam Pre Procedural Exam: Normal: Lungs,
--- NOTE | 2024-02-26 13:07 | SUR.PHASEII ---
Pt taken to xray dept via wheelchair for CXR. Taken to room 301 in stable condition after CT drain placement and CXR. Bedside report given to RONNI Red.
[2024-02-26] MEDS: oxyCODONE/ACETAMINOPHEN (*CRX) 10-325 MG TABLET 1 TAB PO ×2 (13:24→21:59)
--- NOTE | 2024-02-26 13:27 | WPDCN ---
Assessment and Plan Assessment and plan (1) Sepsis: Code(s): A41.9 - Sepsis, unspecified organism Status: Acute Assessment and Plan: Patient meets sepsis criteria with fever, tachycardia, tachypnea, leukocytosis with bandemia, and acute kidney injury. Sepsis is secondary to postoperative pelvic abscess at the hysterectomy bed. Blood cultures have been ordered however she has been on antibiotics for at least 36 hours. Gram stain and culture obtained from the abscess is pending. (2) Postoperative abscess of pelvis in female: Code(s): T81.49XA - Infection following a procedure, other surgical site, initial encounter; N73.9 - Female pelvic inflammatory disease, unspecified Status: Acute Assessment and Plan: Status post laparoscopic hysterectomy with bilateral salpingo-oophorectomy on 02/14/2024. CT scan showed an 8.7 x 5.8 x 6.7 cm abscess in the hysterectomy bed. Status post CT-guided percutaneous drain insertion per IR on 02/26/2024. Manage is per primary service. Continue Zosyn and Flagyl pending cultures. (3) Acute kidney injury: Code(s): N17.9 - Acute kidney failure, unspecified Status: Acute Assessment and Plan: Presumably due to a combination dehydration, sepsis, and mild right hydronephrosis secondary to abscess. Bladder scan ordered to rule out urinary retention. Continue IV fluid rehydration given poor oral intake and insensible losses from fever. Mild hydronephrosis should improve now that drain is in place; renal ultrasound ordered. All medications will be renally dose and nephrotoxic agents will be held. (4) Electrolyte abnormality: Code(s): E87.8 - Other disorders of electrolyte and fluid balance, not elsewhere classified Status: Acute Assessment and Plan: Sodium, potassium, and magnesium are all low. Change lactated Ringer's to normal saline. Potassium and magnesium will be replaced and monitored. (5) Tachycardia: Code(s): R00.0 - Tachycardia, unspecified Status: Acute Assessment and Plan: Tachycardia as most likely due to underlying sepsis. (6) Hypertension: Code(s): I10 - Essential (primary) hypertension Status: Acute Assessment and Plan: Blood pressures were reviewed and they are stable. She has not been receiving her amlodipine 5 mg since admission. Will continue to monitor closely for now. (7) Prediabetes: Code(s): R73.03 - Prediabetes Status: Acute Assessment and Plan: Check hemoglobin A1c. Initiate sliding scale insulin, Accu-Cheks, and hypoglycemic protocol. (8) Iron deficiency anemia: Code(s): D50.9 - Iron deficiency anemia, unspecified Status: Acute Assessment and Plan: Hemoglobin has dropped since admission, in part due to dilution from IV fluids. Check iron studies, B12, and folates and continue to monitor. Plan Thank you for allowing us to participate in this patient's care. Please do not hesitate to contact us with any questions. HPI Data of Consult Date/Time: 02/26/24 13:30 Requesting Physician: Guillermo Zavala MD Consult Narrative Reason for consult: tachycardia Narrative: This is a very pleasant 38-year-old female with hypertension, borderline diabetes, iron deficiency anemia, and gastroesophageal reflux disease who was admitted through the emergency department 2 days ago with a pelvic abscess following hysterectomy after presenting with abdominal pain whom the hospitalist service has been consulted for our opinion regarding tachycardia. She had a total laparoscopic hysterectomy with bilateral salpingo oophorectomy on 02/06/[address] Zavala for menorrhagia. There were no immediate complications documented. Over the course of a few days she developed pressure-like pain in the pelvis and rectum with generalized malaise and fever. CT scan of the abdomen pelvis showed an 8.7 x 5.8 x 6.7 cm abscess
[2024-02-26 14:11] LABS: Hemoglobin 7.6 g/dL (12.0-15.0); Mean Corpuscular HGB Conc 30.4 g/dl (32-36); Mean Corpuscular Hemoglobin 24.8 pg (26-34); Mean Corpuscular Volume 81.7 fl (80-100); Mean Platelet Volume 9.8 fl (7.4-10.4); Platelet Count Result 435 k/mm3 (150-375); Red Blood Count 3.06 M/mm3 (4.2-5.4); Red Cell Distribution Width 15.7 % (11.5-14.5); White Blood Count 26.7 K/mm3 (4.5-10.0)
[2024-02-26 14:18] LABS: Lactic Acid Reflex 1.4 mmol/L (0.7-2.0)
[2024-02-26 14:24] LABS: Iron 11 ug/dL (37-170)
[2024-02-26 14:25] LABS: Alanine Aminotransferase 21 U/L (6-35); Albumin Level 3.6 g/dL (3.5-5.1); Alkaline Phosphatase 123 U/L (38-126); Anion Gap 9 mmol/L (4-12); Aspartate Amino Transferase 29 U/L (14-36); Bilirubin,Total 0.9 mg/dL (0.2-1.3); Blood Urea Nitrogen 8 mg/dL (7-17); CRP 8.5 mg/dL (<1.0); Calcium 8.2 mg/dL (8.4-10.2); Carbon Dioxide 27 mmol/L (22-30); Chloride 91 mmol/L (98-107); Estimated CRCL calculation 82 ml/min; Estimated Glomerular Filt Rate > 60; Glucose 110 mg/dL (65-110); Magnesium 1.5 mg/dL (1.6-2.3); Potassium 3.3 mmol/L (3.4-5.0); Sodium 127 mmol/L (137-145)
[2024-02-26 14:33] LABS: Percent Iron Saturation 6 % (20-50)
[2024-02-26 14:39] LABS: Procalcitonin 1.5 ng/mL
[2024-02-26 14:46] LABS: Band Neutrophils Percent 3 % (0-6); Monocytes Absolute Manual 1.33 K/mm3 (0.1-0.90); Monocytes Percent Manual 5 % (3-9); Neutrophils Absolute Manual 23.76 K/mm3 (1.7-7.2); Neutrophils Percent Manual 86 % (46-73); Total Cells Counted 100
[2024-02-26 14:47] LABS: Hypochromasia 1+; Platelet Estimate Increased (Adequate); Schistocytes None Seen
[2024-02-26 14:48] LABS: Anisocytosis 1+
[2024-02-26 15:49] LABS: Hemoglobin A1C 5.6 % (<5.7)
[2024-02-26] MEDS: estradioL 1 MG TABLET 2 MG PO (15:53)
[2024-02-26] MEDS: LACTATED RINGERS 1,000 ML 125 ML IV CONT (15:53)
[2024-02-26 18:49] LABS: Folic Acid 5.1 ng/mL (2.76->20)
[2024-02-26] MEDS: SODIUM CHLORIDE 0.9% IV 1,000 ML 135 ML IV CONT (21:17)
[2024-02-26] MEDS: KCL 20 MEQ/SW 100 ML 100 ML 50 MEQ IVPB (21:29)
[2024-02-26] MEDS: SODIUM CHLORIDE 0.9% IV 250 ML 50 ML (21:57)
[2024-02-26] MEDS: MAGNESIUM SULF 2 GM/WATER 50ML 2 GM/50 ML BAG IVPB (23:27)
[2024-02-26] MEDS: CALCIUM CARBONATE (TUMS) 500 MG (200 MG ELEMENTAL) PO (23:28)
[2024-02-27] MEDS: PIPERACILLN/TAZ 3.375GM/NS50ML 3.375 GM/50 ML BAG IVPB ×2 (02:48→08:45)
[2024-02-27] MEDS: metroNIDAZOLE 500 MG/ISO 100ML 500 MG/100 ML BAG 100 MG IVPB ×2 (03:43→08:45)
[2024-02-27] MEDS: oxyCODONE/ACETAMINOPHEN (*CRX) 10-325 MG TABLET 1 TAB PO ×3 (05:13→23:29)
[2024-02-27 05:47] VITALS: BP 123/78; PULSE 104; RESP 22; TEMP 37.4; O2SAT 97
[2024-02-27 06:43] LABS: Basophils Percent Auto 0.2 % (0.2-1.2); Hematocrit 23.8 % (37.0-47.0); Hemoglobin 7.1 g/dL (12.0-15.0); Immature Granulocyte Percent A 1.3 % (0-0.5); Lymphocytes Absolute Auto 0.86 K/mm3 (0.9-3.2); Lymphocytes Percent Auto 3.9 % (18.3-44.2); Mean Corpuscular HGB Conc 29.8 g/dl (32-36); Mean Corpuscular Hemoglobin 24.5 pg (26-34); Mean Corpuscular Volume 82.1 fl (80-100); Mean Platelet Volume 9.8 fl (7.4-10.4); Monocytes Absolute Auto 0.6 K/mm3 (0.1-0.6); Monocytes Percent Auto 2.7 % (2.6-8.5); Neutrophils Absolute Auto 20.5 K/mm3 (1.3-6.7); Neutrophils Percent Auto 91.9 % (45.5-73.1); Platelet Count Result 423 k/mm3 (150-375); Red Cell Distribution Width 15.8 % (11.5-14.5); White Blood Count 22.3 K/mm3 (4.5-10.0)
[2024-02-27 06:57] LABS: Anion Gap 9 mmol/L (4-12); Blood Urea Nitrogen 7 mg/dL (7-17); Calcium 8.3 mg/dL (8.4-10.2); Carbon Dioxide 26 mmol/L (22-30); Chloride 97 mmol/L (98-107); Estimated CRCL calculation 130 ml/min; Estimated Glomerular Filt Rate > 60; Glucose 115 mg/dL (65-110); Potassium 3.4 mmol/L (3.4-5.0); Sodium 132 mmol/L (137-145)
[2024-02-27 07:06] LABS: Anisocytosis 1+; Hypochromasia 1+; Platelet Estimate Increased (Adequate); Schistocytes None Seen
[2024-02-27] MEDS: estradioL 1 MG TABLET 2 MG PO (08:44)
[2024-02-27] MEDS: ACETAMINOPHEN 500 MG TABLET 1000 MG PO ×2 (08:44→14:31)
[2024-02-27] MEDS: SODIUM CHLORIDE 0.9% IV 1,000 ML 135 ML IV CONT ×2 (08:44→14:01)
--- NOTE | 2024-02-27 11:25 | PC.NURSE ---
Documentation under the name of Marsha Ramirez on 02/26/24 from [id number] was done by Cherri Sinclair. Signing out and logging in was not done correctly at shift change.
--- NOTE | 2024-02-27 12:48 | PM.GYNPNOP ---
[employer] - A/P Assessment and plan (1) Postoperative abscess of pelvis in female: Code(s): T81.49XA - Infection following a procedure, other surgical site, initial encounter; N73.9 - Female pelvic inflammatory disease, unspecified Status: Acute Assessment and Plan: This patient is a 38-year-old who is postop day 11. From a laparoscopic hysterectomy. She developed pelvic abscess. She has been treated with antibiotics. She has now had a CT-guided drain placed in the abscess. There is moderate output from the drain. She is been afebrile for more than 24 hours now. She continues to have pain but it is improved. She has some night sweats. Her tachycardia is improved. Her white count is improving as well. Continue IV antibiotics and consider discharge tomorrow. Postoperative Procedures: Procedures Operation Date: 02/26/24 11:00 Actual Procedure Side Surgeon p Radiology Procedure Mod.Sed.Rn- CT Guided Abscess Drain Placement Trenton Finch MD Postoperative day: 1 Postoperative status: doing well Postoperative plan: see orders Time Spent With Patient Time: Total time spent is greater than 50% in coordination of care (as documented) at patient's floor/unit and/or counseling patient: Time with patient: less than 15 minutes [address] [employer]- PN:Subj Post-Op Subjective Date/time seen: 02/27/24 12:48 improved pain, denies nausea or vomiting. Denies any chest pain or shortness of breath. No vaginal discharge. No vaginal bleeding. Subjective: patient reports feeling better, patient has no complaints and pain is well controlled Exam Const: General: healthy appearing, comfortable and no acute distress Resp: Auscultation: clear to auscultation bilaterally, no rales, no rhonchi and no wheezes Cardio: Rate: regular rate Heart sounds: no click, no murmurs and no rubs GI: Inspection: non-distended Auscultation: normal bowel sounds Extrem: General: normal to inspection, no pedal edema and no calf tenderness [employer] - PN: Obj Data Vital Signs Vital Signs: Vital Signs - 24 hr 02/26/24 13:59 02/26/24 14:00 02/26/24 22:00 Temperature 100.0 F H 100.8 F H 100.2 F H Pulse Rate 89 112 H Respiratory Rate 18 16 Blood Pressure 106/71 126/82 Pulse Oximetry 100 98 02/27/24 05:47 Temperature 99.4 F Pulse Rate 104 H Respiratory Rate 22 H Blood Pressure 123/78 Pulse Oximetry 97 Intake/Output Intake/Output: Intake & Output 02/24/24 02/25/24 02/26/24 02/27/24 23:59 23:59 23:59 23:59 Intake Total 2740 3200 2103 1390 Output Total 225 30 Balance 2740 3200 1878 1360 Meds/Results Medications: Active Medications Generic Name Dose Route Start Last Admin Trade Name Freq PRN Reason Stop Dose Admin Acetaminophen 1,000 mg 02/24/24 20:10 02/27/24 08:44 Acetaminophen 500 Mg Tablet PO 1,000 mg Q6H PRN Administration Mild Pain (1-3) or Fever Calcium Carbonate 200 mg 02/26/24 23:11 02/26/24 23:28 Calcium Carbonate (Tums) 500 Mg (200 Mg Elemental) PO 200 mg Q6H PRN Administration Indigestion Docusate Sodium 100 mg 02/25/24 12:04 02/25/24 12:18 Docusate Sodium 100 Mg Capsule PO 100 mg Q12H PRN Administration Constipation Estradiol 2 mg 02/26/24 09:00 02/27/24 08:44 Estradiol 1 Mg Tablet PO 2 mg QAM PAUL Administration Hydromorphone HCl 1 mg 02/25/24 07:45 02/26/24 08:43 Hydromorphone Hcl Inj (*Crx) 1 Mg/Ml Syr IV PUSH 1 mg Q2H PRN Administration Pain Rated 7-10 Sodium Chloride 1,000 mls @ 135 mls/hr 02/26/24 20:05 02/27/24 08:44 Normal Saline Iv IV CONT 135 mls/hr .Q7H25M PAUL Administration Piperacillin Sod/Tazobactam Sod 4.5 gm in 100 mls @ 200 mls/hr 02/27/24 13:30 Zosyn 4.5 Gm/Ns 100 Ml IVPB Q6HR PAUL Naloxone HCl 0.1 mg 02/25/24 07:46 Naloxone Hcl 0.4 Mg/Ml Vial IV PUSH Q5MIN PRN Opioid Reversal Ondansetron HCl 4 mg 02/24/24 12:14 02/26/24 08:42 Ondansetron Inj 4 Mg/2 Ml Vial IV PU
[2024-02-27] MEDS: PIPERACILLIN/TAZ 4.5G/NS 100ML 4.5 GM/100 ML BAG IVPB ×3 (13:47→23:30)
[2024-02-27] MEDS: ONDANSETRON INJ 4 MG/2 ML VIAL IV PUSH (13:59)
[2024-02-27 14:00] VITALS: BP 108/65; PULSE 93; RESP 20; TEMP 37.3; O2SAT 98
--- NOTE | 2024-02-27 14:41 | PM.IMPN ---
Progress Note: A&P Assessment and Plan (1) Sepsis: Code(s): A41.9 - Sepsis, unspecified organism Status: Acute Assessment and Plan: 02/27/24: Patient initially meeting sepsis criteria with fever, tachycardia, tachypnea, leukocytosis with bandemia, and acute kidney injury Blood culture showing no growth on preliminary read Urine culture was negative Abscess culture showing g positive cocci and Gram-negative bacilli on preliminary read in the anaerobic bottle only Continue Zosyn DC Flagyl (2) Postoperative abscess of pelvis in female: Code(s): T81.49XA - Infection following a procedure, other surgical site, initial encounter; N73.9 - Female pelvic inflammatory disease, unspecified Status: Acute Assessment and Plan: 02/27/24: Status post laparoscopic hysterectomy with bilateral salpingo oophorectomy on 02/14/2024 CT of the abdomen and pelvis showed an 8.7 x 5.8 x 6.7 cm abscess in the hysterectomy bed Status post CT-guided percutaneous drain insertion per IR on 02/26/2024 Continue Zosyn (3) Acute kidney injury: Code(s): N17.9 - Acute kidney failure, unspecified Status: Acute Assessment and Plan: 02/27/24: Creatinine corrected at 0.7 today Continue to trend (4) Electrolyte abnormality: Code(s): E87.8 - Other disorders of electrolyte and fluid balance, not elsewhere classified Status: Acute Assessment and Plan: 02/27/24: Sodium increased to 132, potassium 3.4 Continue to trend Continue IV fluids (5) Tachycardia: Code(s): R00.0 - Tachycardia, unspecified Status: Acute Assessment and Plan: 02/27/24: Heart rate 89-112 Probably due to fever, dehydration, sepsis Continue to monitor Continue IV fluids for hydration (6) Iron deficiency anemia: Code(s): D50.9 - Iron deficiency anemia, unspecified Status: Acute Assessment and Plan: 02/27/24: Hemoglobin 7.1 Total iron 1.5, ferritin 435, vitamin B12 904, folate 5.1, TSH 1.0 Consider acute blood loss anemia Will check sickle cell screen, ESR, haptoglobin Consider hematology consult. Time Spent With Patient Time with patient: 25 - 35 minutes Subjective Date/time seen: 02/27/24 14:41 Interval history: Interval history: This is a 38-year-old female who presented to the hospital on 02/25/2024 for evaluation of a pelvic abscess following hysterectomy. OB services primary on the patient we were consulted due to her tachycardia. Patient had a total laparoscopic hysterectomy with bilateral salpingo oophorectomy on 02/06/[address] Zavala for menorrhagia. Over the course of a few days postop shoe this developed pressure-like pain in the pelvis and rectum with generalized malaise and fever. She came to the hospital for further evaluation. Workup in the hospital included a CT of the abdomen and pelvis with contrast which showed an 8 x 7 x 5.8 x 6.7 cm abscess in the hysterectomy bed, mild right hydronephrosis secondary to the abscess. She also had a chest x-ray which was negative. She was taken to Interventional Radiology and had a successful CT-guided pelvic abscess drain placed with blood-tinged fluid draining and was sent for aerobic and anaerobic culture. She also had a renal ultrasound on 02/26/2024 which shown minimal right pelviectasis. Patient initially was showing sepsis with increased white blood cell count of 24.0, heart rate in the 120, T-max 103.3, with known source of infection. Lactic acid was normal. She also had a UA done on 02/24/2024 which showed a cloudy urine appearance 1+ urine protein, trace urine ketones, 1+ urine bili, trace leukocyte, 3-5 urine RBCs, 11-20 urine WBC, 4+ urine bacteria. Urine culture was obtained and was negative. Blood cultures currently showing no growth to date on preliminary read. Anaerobic abscess culture showing Gram-positive cocci and g positive bacilli on preliminary read. Patient initially on Zosyn and Flag
[2024-02-27 18:35] LABS: IFOB Positive Control Positive; Immunochemical Fecal Occult Bl Negative (N)
[2024-02-27 21:25] VITALS: BP 105/67; PULSE 88; RESP 20; TEMP 36.6; O2SAT 99
[2024-02-28] MEDS: SODIUM CHLORIDE 0.9% IV 1,000 ML 135 ML IV CONT ×2 (02:30→11:37)
[2024-02-28] MEDS: ACETAMINOPHEN 500 MG TABLET 1000 MG PO ×2 (05:58→12:17)
[2024-02-28] MEDS: PIPERACILLIN/TAZ 4.5G/NS 100ML 4.5 GM/100 ML BAG IVPB ×2 (05:58→11:34)
[2024-02-28 06:00] VITALS: BP 116/82; PULSE 88; RESP 16; TEMP 36.8; O2SAT 100
[2024-02-28 06:26] LABS: Basophils Absolute Auto 0.1 K/mm3 (0.0-0.1); Basophils Percent Auto 0.2 % (0.2-1.2); Eosinophils Percent Auto 0.1 % (0-4.4); Immature Granulocyte Absolute 0.29 K/mm3 (0.00-0.031); Immature Granulocyte Percent A 1.4 % (0-0.5); Lymphocytes Absolute Auto 1.41 K/mm3 (0.9-3.2); Mean Corpuscular Hemoglobin 24.6 pg (26-34); Mean Corpuscular Volume 82.1 fl (80-100); Mean Platelet Volume 9.9 fl (7.4-10.4); Monocytes Absolute Auto 0.9 K/mm3 (0.1-0.6); Monocytes Percent Auto 4.3 % (2.6-8.5); Neutrophils Absolute Auto 17.5 K/mm3 (1.3-6.7); Platelet Count Result 444 k/mm3 (150-375); Red Blood Count 2.68 M/mm3 (4.2-5.4); Red Cell Distribution Width 15.9 % (11.5-14.5); White Blood Count 20.1 K/mm3 (4.5-10.0)
[2024-02-28 07:35] LABS: Hemoglobin 6.6 g/dL (12.0-15.0)
[2024-02-28] MEDS: estradioL 1 MG TABLET 2 MG PO (08:41)
[2024-02-28 08:54] LABS: Reticulocyte Hemoglobin Conten 20.1 pg (28.2-36.6); Reticulocyte Percent 0.58 % (0.7-4.3); Reticulocytes Absolute 0.02 10^6/uL (0.02-0.10)
--- NOTE | 2024-02-28 10:52 | P.PNIM_ITS ---
Progress Note: A&P Assessment and Plan (1) Sepsis: Code(s): A41.9 - Sepsis, unspecified organism Status: Acute Assessment and Plan: 02/27/24: * Patient initially meeting sepsis criteria with fever, tachycardia, tachypnea, leukocytosis with bandemia, and acute kidney injury * Blood culture showing no growth on preliminary read * Urine culture was negative * Abscess culture showing g positive cocci and Gram-negative bacilli on preliminary read in the anaerobic bottle only * Continue Zosyn * DC Flagyl 02/28/24: * Continue Zosyn * Blood cultures showing no growth on preliminary read * Abscess culture showing gram-positive cocci and Gram-positive bacilli on anaerobic, no growth on aerobic * White blood cell count down to 20.1 today (2) Postoperative abscess of pelvis in female: Code(s): T81.49XA - Infection following a procedure, other surgical site, initial encounter; N73.9 - Female pelvic inflammatory disease, unspecified Status: Acute Assessment and Plan: 02/27/24: * Status post laparoscopic hysterectomy with bilateral salpingo oophorectomy on 02/14/2024 * CT of the abdomen and pelvis showed an 8.7 x 5.8 x 6.7 cm abscess in the hysterectomy bed * Status post CT-guided percutaneous drain insertion per IR on 02/26/2024 * Continue Zosyn 02/28/24: * Zosyn changed to oral Augmentin (3) Acute kidney injury: Code(s): N17.9 - Acute kidney failure, unspecified Status: Acute Assessment and Plan: 02/27/24: * Creatinine corrected at 0.7 today * Continue to trend 02/28/24: * Resolved (4) Electrolyte abnormality: Code(s): E87.8 - Other disorders of electrolyte and fluid balance, not elsewhere classified Status: Acute Assessment and Plan: 02/27/24: * Sodium increased to 132, potassium 3.4 * Continue to trend * Continue IV fluids 02/28/24: * Resolved (5) Tachycardia: Code(s): R00.0 - Tachycardia, unspecified Status: Acute Assessment and Plan: 02/27/24: * Heart rate 89-112 * Probably due to fever, dehydration, sepsis * Continue to monitor * Continue IV fluids for hydration 02/28/24: * Resolved (6) Iron deficiency anemia: Code(s): D50.9 - Iron deficiency anemia, unspecified Status: Acute Assessment and Plan: 02/27/24: * Hemoglobin 7.1 * Total iron 1.5, ferritin 435, vitamin B12 904, folate 5.1, TSH 1.0 * Consider acute blood loss anemia * Will check sickle cell screen, ESR, haptoglobin * Consider hematology consult. 02/28/24: * Hemoglobin 6.6 today * Patient refusing blood transfusion * Absolute Retic count 0.02, sickle cell and haptoglobin pending * Stool culture negative * Iron infusion ordered * Will order Hespan instead Time Spent With Patient Time with patient: 25 - 35 minutes Subjective Date/time seen: 02/28/24 10:52 Interval history: Interval history: This is a 38-year-old female who presented to the hospital on 02/25/2024 for evaluation of a pelvic abscess following hysterectomy. OB services primary on the patient we were consulted due to her tachycardia. Patient had a total laparoscopic hysterectomy with bilateral salpingo oophorectomy on 02/06/[address] Zavala for menorrhagia. Over the course of a few days postop shoe this developed pressure-like pain in the pelvis and rectum with generalized malaise and fever. She came to the hospital for further evaluation. Workup in the hospital included a CT of the abdomen and pelvis wi
--- NOTE | 2024-02-28 10:52 | PM.IMPN ---
Progress Note: A&P Assessment and Plan (1) Sepsis: Code(s): A41.9 - Sepsis, unspecified organism Status: Acute Assessment and Plan: 02/27/24: Patient initially meeting sepsis criteria with fever, tachycardia, tachypnea, leukocytosis with bandemia, and acute kidney injury Blood culture showing no growth on preliminary read Urine culture was negative Abscess culture showing g positive cocci and Gram-negative bacilli on preliminary read in the anaerobic bottle only Continue Zosyn DC Flagyl 02/28/24: Continue Zosyn Blood cultures showing no growth on preliminary read Abscess culture showing gram-positive cocci and Gram-positive bacilli on anaerobic, no growth on aerobic White blood cell count down to 20.1 today (2) Postoperative abscess of pelvis in female: Code(s): T81.49XA - Infection following a procedure, other surgical site, initial encounter; N73.9 - Female pelvic inflammatory disease, unspecified Status: Acute Assessment and Plan: 02/27/24: Status post laparoscopic hysterectomy with bilateral salpingo oophorectomy on 02/14/2024 CT of the abdomen and pelvis showed an 8.7 x 5.8 x 6.7 cm abscess in the hysterectomy bed Status post CT-guided percutaneous drain insertion per IR on 02/26/2024 Continue Zosyn 02/28/24: Zosyn changed to oral Augmentin (3) Acute kidney injury: Code(s): N17.9 - Acute kidney failure, unspecified Status: Acute Assessment and Plan: 02/27/24: Creatinine corrected at 0.7 today Continue to trend 02/28/24: Resolved (4) Electrolyte abnormality: Code(s): E87.8 - Other disorders of electrolyte and fluid balance, not elsewhere classified Status: Acute Assessment and Plan: 02/27/24: Sodium increased to 132, potassium 3.4 Continue to trend Continue IV fluids 02/28/24: Resolved (5) Tachycardia: Code(s): R00.0 - Tachycardia, unspecified Status: Acute Assessment and Plan: 02/27/24: Heart rate 89-112 Probably due to fever, dehydration, sepsis Continue to monitor Continue IV fluids for hydration 02/28/24: Resolved (6) Iron deficiency anemia: Code(s): D50.9 - Iron deficiency anemia, unspecified Status: Acute Assessment and Plan: 02/27/24: Hemoglobin 7.1 Total iron 1.5, ferritin 435, vitamin B12 904, folate 5.1, TSH 1.0 Consider acute blood loss anemia Will check sickle cell screen, ESR, haptoglobin Consider hematology consult. 02/28/24: Hemoglobin 6.6 today Patient refusing blood transfusion Absolute Retic count 0.02, sickle cell and haptoglobin pending Stool culture negative Iron infusion ordered Will order Hespan instead Time Spent With Patient Time with patient: 25 - 35 minutes Subjective Date/time seen: 02/28/24 10:52 Interval history: Interval history: This is a 38-year-old female who presented to the hospital on 02/25/2024 for evaluation of a pelvic abscess following hysterectomy. OB services primary on the patient we were consulted due to her tachycardia. Patient had a total laparoscopic hysterectomy with bilateral salpingo oophorectomy on 02/06/[address] Zavala for menorrhagia. Over the course of a few days postop shoe this developed pressure-like pain in the pelvis and rectum with generalized malaise and fever. She came to the hospital for further evaluation. Workup in the hospital included a CT of the abdomen and pelvis with contrast which showed an 8 x 7 x 5.8 x 6.7 cm abscess in the hysterectomy bed, mild right hydronephrosis secondary to the abscess. She also had a chest x-ray which was negative. She was taken to Interventional Radiology and had a successful CT-guided pelvic abscess drain placed with blood-tinged fluid draining and was sent for aerobic and anaerobic culture. She also had a renal ultrasound on 02/26/2024 which shown minimal right pelviectasis. Patient initially was showing sepsis with increased white blood
[2024-02-28 11:14] LABS: Alanine Aminotransferase 14 U/L (6-35); Albumin Level 3.1 g/dL (3.5-5.1); Alkaline Phosphatase 141 U/L (38-126); Anion Gap 9 mmol/L (4-12); Aspartate Amino Transferase 40 U/L (14-36); Bilirubin,Total 0.3 mg/dL (0.2-1.3); Blood Urea Nitrogen 8 mg/dL (7-17); Calcium 7.9 mg/dL (8.4-10.2); Carbon Dioxide 26 mmol/L (22-30); Chloride 100 mmol/L (98-107); Estimated CRCL calculation 149 ml/min; Estimated Glomerular Filt Rate > 60; Glucose 88 mg/dL (65-110); Potassium 3.6 mmol/L (3.4-5.0); Sodium 135 mmol/L (137-145)
--- NOTE | 2024-02-28 11:56 | PM.GYNPNOP ---
LANGUAGE ASST - A/P Assessment and plan (1) Postoperative abscess of pelvis in female: Code(s): T81.49XA - Infection following a procedure, other surgical site, initial encounter; N73.9 - Female pelvic inflammatory disease, unspecified Status: Acute Assessment and Plan: Patient has been treated with IV antibiotics for 4 days. Her abscess has been drained. abscess Catheter was placed and observed for 3 days. Very little is draining from the catheter now. It was removed. The patient is severely anemic. She declines any blood. She is getting iron transfusions and Hespan Per hospitalist team. Patient likely be discharged today. She was given precautions on her anemia. Oral antibiotics will be prescribed. She will follow up in 4 days. Postoperative Procedures: Procedures Operation Date: 02/26/24 11:00 Actual Procedure Side Surgeon p Radiology Procedure Mod.Sed.Rn- CT Guided Abscess Drain Placement Trenton Finch MD Time Spent With Patient Time: Total time spent is greater than 50% in coordination of care (as documented) at patient's floor/unit and/or counseling patient: Time with patient: 15 - 25 minutes LANGUAGE ASST- PN:Subj Post-Op Subjective Date/time seen: 02/28/24 11:56 Pain is resolving, patient denies any nausea, vomiting, fever, chills. She denies any chest pain shortness of breath. She does report fatigue. She is ambulating without prior. Interval history: Interval history: This is a 38-year-old female who presented to the hospital on 02/25/2024 for evaluation of a pelvic abscess following hysterectomy. OB services primary on the patient we were consulted due to her tachycardia. Patient had a total laparoscopic hysterectomy with bilateral salpingo oophorectomy on 02/06/[address] Zavala for menorrhagia. Over the course of a few days postop shoe this developed pressure-like pain in the pelvis and rectum with generalized malaise and fever. She came to the hospital for further evaluation. Workup in the hospital included a CT of the abdomen and pelvis with contrast which showed an 8 x 7 x 5.8 x 6.7 cm abscess in the hysterectomy bed, mild right hydronephrosis secondary to the abscess. She also had a chest x-ray which was negative. She was taken to Interventional Radiology and had a successful CT-guided pelvic abscess drain placed with blood-tinged fluid draining and was sent for aerobic and anaerobic culture. She also had a renal ultrasound on 02/26/2024 which shown minimal right pelviectasis. Patient initially was showing sepsis with increased white blood cell count of 24.0, heart rate in the 120, T-max 103.3, with known source of infection. Lactic acid was normal. She also had a UA done on 02/24/2024 which showed a cloudy urine appearance 1+ urine protein, trace urine ketones, 1+ urine bili, trace leukocyte, 3-5 urine RBCs, 11-20 urine WBC, 4+ urine bacteria. Urine culture was obtained and was negative. Blood cultures currently showing no growth to date on preliminary read. Anaerobic abscess culture showing Gram-positive cocci and g positive bacilli on preliminary read. Patient initially on Zosyn and Flagyl. Subjective: Review of Systems Review of Systems: All systems reviewed & are unremarkable except as noted in HPI and below Constitutional: Constitutional: Denies chills, Denies fatigue, Denies fever(s) and Denies weakness Eyes: Eyes: Denies blurry vision, Denies change in vision, Denies loss of peripheral vision, Denies loss of vision, Denies other visual disturbances and Denies eye pain ENT: Denies vertigo, Denies dizziness, Denies hearing loss, Denies mouth pain, Denies nasal obstruction, Denies neck mass and Denies neck pain Cardiovascular: Cardiovascular: Denies chest pain, Denies diaphoresis, Denies syncope, Denies leg edema and Denies dyspnea Respiratory: Respiratory: Denies chest congestion, Denies cough, Denies hemoptysis, Denies dyspnea and Denies wheezing Gastrointestinal: Gastrointestin
--- NOTE | 2024-02-28 12:09 | PM.DS ---
DS: Admitting Diagnosis Discharge Date February 28, 2000 Admitting Diagnosis postoperative pelvic abscess DS: Discharge Diagnosis Discharge Diagnosis (1) Postoperative abscess of pelvis in female: Code(s): T81.49XA - Infection following a procedure, other surgical site, initial encounter; N73.9 - Female pelvic inflammatory disease, unspecified Status: Acute DS: Summary Hospital Course Hospital Course: 38-year-old female was admitted through the emergency department for a pelvic pain and pelvic abscess. She was about 7 days postop from a laparoscopic hysterectomy. She was treated with IV antibiotics. This was for about 36 hours and then a drain was placed using CT-guided interventional radiology technique. She slowly improved over the next 3 days. Her white count was coming down. She was afebrile. She did become more anemic but declined blood and treatment with transfusion. With her entire clinical picture improving and little coming out of the drain I removed the percutaneous drain. Patient did not want to be discharged with the drain. We agreed to discharge on hospital day 4. She was discharged with antibiotics and short-term follow-up. Time Spent with Patient Time attestation: Total time spent providing and/or coordinating discharge services: DS: Data Data Completed and Pending Labs on day of discharge: Labs from last 24 hours 02/28/24 02/28/24 02/27/24 05:20 05:16 17:32 WBC 20.1 H RBC 2.68 L Hgb 6.6 L* Hct 22.0 L MCV 82.1 MCH 24.6 L MCHC 30.0 L RDW 15.9 H Plt Count 444 H MPV 9.9 Immature Gran % (Auto) 1.4 H Neut % (Auto) 87.0 H Lymph % (Auto) 7.0 L [place] % (Auto) 4.3 Eos % (Auto) 0.1 Baso % (Auto) 0.2 Lymph # (Auto) 1.41 [place] # (Auto) 0.9 H Eos # (Auto) 0.0 Baso # (Auto) 0.1 Abs Immat Gran (auto) 0.29 H Absolute Neuts (auto) 17.5 H Absolute Nucleated RBC 0.000 Nucleated RBC % 0.0 Absolute Retic 0.02 Percent Retic 0.58 L Immature Retic Fraction 11.0 Retic Hgb Content 20.1 L Sickle Cell Screen Pending Haptoglobin Pending Sodium 135 L Potassium 3.6 Chloride 100 Carbon Dioxide 26 Anion Gap 9 BUN 8 Creatinine 0.60 L Estim Creat Clear Calc 149 Estimated GFR > 60 Glucose 88 Calcium 7.9 L Total Bilirubin 0.3 AST 40 H ALT 14 Alkaline Phosphatase 141 H Total Protein 7.0 Albumin 3.1 L Stl Occult Blood (IFOB) Negative Preliminary micro results at discharge 02/26/24 12:15 Anaerobic Culture - Preliminary Abscess Aerobic Culture - Preliminary 02/26/24 15:44 Blood Culture - Preliminary Blood 02/26/24 13:48 Blood Culture - Preliminary Blood Discharge Plan Discharge Consulting providers: Jona Mims; Marina Trimble; Ciaran Madden Discharging Clinician: Guillermo Zavala Patient Disposition: Home, Self-Care Activity: pelvic rest Diet: regular Patient Instructions: Antibiotic Form Stand Alone Forms: General Discharge Information Follow-up/Referrals: Guillermo Zavala MD [Physician] - Discharge Medications: New amoxicillin-pot clavulanate 875-125 mg tablet 1 tablet PO Q12H Qty: 30 0RF Continued Mounjaro 5 mg/0.5 mL pen injector 5 mg subcut WEEKLY Rx Instructions: WEDNESDAYS multivitamin Tablet 1 tablet PO DAILY ascorbic acid (vitamin C) [Vitamin C] 500 mg Tablet 500 mg PO DAILY amlodipine [Norvasc] 5 mg Tablet 5 mg PO DAILY meloxicam 15 mg tablet 15 mg PO DAILY pantoprazole 40 mg tablet,delayed release (DR/EC) 40 mg PO DAILY ergocalciferol (vitamin D2) 1,250 mcg (50,000 unit) capsule 1,250 mcg PO WEEKLY Patient Comments: Monday's Rx Instructions: Monday's oxycodone-acetaminophen 5-325 mg tablet 1 tablet PO Q4H PRN (Reason: pain) Qty: 25 0RF Date of admission: 02/25/24 10:54 Primary Care Provider: [facility]
[2024-02-28] MEDS: hetaSTARCH 6%/NACL 500 ML 250 ML IV CONT (12:19)
[2024-02-28 13:35] VITALS: BP 131/85; PULSE 86; RESP 16; TEMP 37.2; O2SAT 100
[2024-02-28] MEDS: IRON SUCROSE COMPLEX 400 MG in SODIUM CHLORIDE 0.9% IV 250 ML 108 MG IVPB (14:29)
[2024-03-01 14:48] LABS: Haptoglobin 357 mg/dL (43-212)
== END 2024-02-28 17:30 | disposition home or self-care (01) | DRG 863 ==
LOC: ANHED 12:14 → ANH3MEDSUR 12:59
PROVIDERS: Nurse Practitioner Acute Care; Physician Assistant; Radiology Diagnostic Radiology; Admitting Provider Obstetrics & Gynecology; Emergency Provider Student in an Organized Health Care Education/Training Program; Visit Provider Obstetrics & Gynecology
PROC: 0W9J30Z Drainage of Pelvic Cavity with Drainage Device, Percutaneous Approach (ICD-10-PCS; principal; 2024-02-26 11:00)
DX: T81.49XA Infection following a procedure, other surgical site, initial encounter (principal); Z68.43 Body mass index [BMI] 50.0-59.9, adult; N17.9 Acute kidney failure, unspecified; N13.39 Other hydronephrosis; T81.44XA Sepsis following a procedure, initial encounter; N73.9 Female pelvic inflammatory disease, unspecified; B96.89 Other specified bacterial agents as the cause of diseases classified elsewhere; M19.90 Unspecified osteoarthritis, unspecified site; K21.9 Gastro-esophageal reflux disease without esophagitis; E66.01 Morbid (severe) obesity due to excess calories; R73.03 Prediabetes; D50.9 Iron deficiency anemia, unspecified; D75.839 Thrombocytosis, unspecified; E86.0 Dehydration; Z53.29 Procedure and treatment not carried out because of patient's decision for other reasons; Z90.710 Acquired absence of both cervix and uterus; Z90.722 Acquired absence of ovaries, bilateral
CPT/HCPCS: 36415; 71045; 74177; 75989; 76775; 80048; 80053; 81001; 82274; 82607; 82728; 82746; 83010; 83036; 83540; 83550; 83605; 83735; 84145; 84443; 85025; 85046; 85610; 85660; 85730; 86140; 87040; 87070; 87075; 87086; 87205; 93005; 96361; 96365; 96366; 96367; 96374; 96375; 96376; 99285; A9270; C1729; C1769; G0378; J0696; J1170; J1756; J1836; J2250; J2270; J2405; J2543; J3010; J3475; J3480; J7030; J7040; J7050; J7120; Q9967

== ENCOUNTER 2024-03-04 12:31 | Outpatient (CLI) | payer OTHER, SELFPAY ==
[2024-03-04 12:54] LABS: Hemoglobin 7.8 g/dL (12.0-15.0); Mean Corpuscular HGB Conc 28.9 g/dl (32-36); Mean Corpuscular Hemoglobin 24.2 pg (26-34); Mean Corpuscular Volume 83.9 fl (80-100); Mean Platelet Volume 8.6 fl (7.4-10.4); Platelet Count Result 645 k/mm3 (150-375); Red Blood Count 3.22 M/mm3 (4.2-5.4); Red Cell Distribution Width 17.2 % (11.5-14.5); White Blood Count 12.9 K/mm3 (4.5-10.0)
== END 2024-03-04 12:32 | disposition home or self-care (01) ==
LOC: ANHLAB 12:32
PROVIDERS: Visit Provider Nurse Practitioner Acute Care
DX: A41.9 Sepsis, unspecified organism (principal); D50.9 Iron deficiency anemia, unspecified; D72.829 Elevated white blood cell count, unspecified
CPT/HCPCS: 36415; 85027

== ENCOUNTER 2024-10-09 14:36 | Outpatient (CLI) | payer OTHER, SELFPAY ==
--- NOTE | ~2024-10-09 | MR_ITS ---
EXAMINATION: MR knee RT wo con DATE: 10/09/2024 16:03 INDICATION: Right knee pain TECHNIQUE: Magnetic resonance imaging (MRI) of the right knee was performed without intravenous contr ast. Sequences included coronal PD-weighted FSE, coronal PD-weighted FS FSE, sagittal T2-weighted FS E, sagittal PD-weighted FS FSE and axial PD weighted fat saturated FSE. COMPARISON: None. FINDINGS: Medial compartment: There is medial extrusion of the medial meniscal body. There is increased intrasubstance signal in th e meniscal body and posterior horn which does not on immediately contact the articular surface to ángel t requirements for meniscal tear but which would be consistent with mucoid degeneration. There is par tial thickness chondral ulceration with up to 50% cartilage thickness loss and chondral surface regul arity along the anterior to central weightbearing medial femoral condyle. There is a small region of underlying cystlike change at the central weightbearing medial femoral condyle. Less severe shallow c hondral ulceration along the medial tibial plateau. Lateral compartment: Lateral meniscus is normal. Articular cartilage is normal. Patellofemoral compartment: There is partial-thickness chondral fissuring with underlying cortical irregularity and cystlike worley ge at the patellar apical ridge and the superolateral quadrant of the medial patellar facet. Addition al partial-thickness chondral ulceration and deep fissuring at the trochlear groove with underlying c ortical irregularity and mild subarticular cystlike changes along the medial trochlea. Cartilage at t he lateral trochlea and lateral patellar facet are relatively preserved. Ligaments and tendons: Anterior and posterior cruciate ligaments are normal. The medial collateral ligament and fibular leticia ateral ligament complex are normal. The extensor mechanism is normal. The visualized medial and later al hamstring tendons as well as the iliotibial band are normal. Fluid: Moderate-sized knee joint effusion at the suprapatellar pouch. No loose osteochondral bodies identifi ed. Osseous/other: Aside from the previously noted subarticular cystlike changes, there is normal bone marrow signal thr oughout. No fracture or pathologic marrow replacing process. IMPRESSION: 1. Medial extrusion of the medial meniscal body with mucoid degeneration but without discrete tear. 2. Mild osteoarthritis with high-grade chondromalacia most prominent at the views of the patellofemor al compartment and to lesser degree in the medial compartment. 2. Moderate-sized knee joint effusion. Reviewed, dictated and finalized at location A. IMPRESSION: 1. Medial extrusion of the medial meniscal body with mucoid degeneration but wi thout discrete tear. 2. Mild osteoarthritis with high-grade chondromalacia most prominent at the vie ws of the patellofemoral compartment and to lesser degree in the medial compart ment. 2. Moderate-sized knee joint effusion.
--- OUTSIDE RECORDS SUMMARY | 2024-10-09 16:43 | XMS_ITS | Data Portability ---
Author Organization [facility] OFFICE Address [address] [place] [address] Care Team Providers Care Plaster Molder Name Role Phone DARCIE LINDSEY Primary Care Provider [phone] Assessment No assessment recorded. Plan of Treatment Reminders Order Date Submit Date Provider Last Modified By Organization Details Last Modified Time Details Appointments None record ed. Lab None record ed. Referral None record ed. Procedures None record ed. Surgeries None record ed. Imaging None record ed. Medication Orders None record ed. Patient TargetsNo targets recorded. Patient Instructions Encounter Date Encounter Id Patient Instructions Last Modified By Organization Details Last Modified Time 04/09/2020 [id number] Weight loss, 20 pounds Exercise advised Low cholesterol diet advised Low sodium diet advised. [email or web address] Not available 04/09/2020 14:04:04 Scribed by Janie Bhatti, MSN, PAPER MACHINE BACKTENDER, SOLAR PV INSTALLER-C Not available 04/09/2020 14:04:08 Reason for Referral None Reported. Results Created Date Observation Date Name Description Value Unit Range Abnormal Flag Note LastModifiedBy Organization Detail LastModifiedTime 02/26/20 20 02/21/2020 elect monicaar diogr am No observ ation record ed. [email or web address] Not Available 2019 11:36:47 04/07/20 20 04/01/2020 , echo ardio gram No observ ation record ed. [email or web address] Not Available 2019 09:32:44 Result Notes None recorded. Problems Name Problem SNOMED Code Status Onset Date Resolution Date Notes Provider Name and Address Organization Details Recorded Time Chest pain 28793420 Active 2019 Ariana Mathias [facility] 0 12:26:45 Essential hypertension 41696108 Active 2019 [place] [facility] 0 13:31:31 Ob[facility] 606154050 [facility] 0 13:31:39 Electrocardiog jas abnormal 965799321 [facility] 0 13:31:47 Problem Notes None recorded. Procedures Surgical History Date Name Laterality Status Provider Name and Address Organization Details Recorded Time ligation of fallopian tube completed Ariana Ryanalley [place] - [facility] 02/21/2020 12:27:48 Imaging Results Imaging Date Name Status LastModified by Organization Details LastModified Time 02/21/2020 electrocardiogram completed [email or web address] Informa tion not available 02/26/2020 11:36:47 04/01/2020 US, echocardiogram completed [email or web address] Inform ation not available 04/07/2020 09:32:44 Procedure Notes None recorded. Medical Equipment None Reported. Allergies No known drug allergies Medications Name Sig Start Date Stop Date Status Note LastModified by Organization Details LastModified Time amoxicillin 500 mg capsule 02/20 completed Not Available Not Available Not Available ketoconazol e 2 % shampoo 02/20 completed Not Available Not Available Not Available cetirizine 10 mg tablet 02/20 completed Not Available Not Available Not Available Iron (ferrous sulfate) 325 mg (65 mg iron) tablet Take 1 tablet every day by oral route. active Not Available Not Available No t Available ibuprofen 800 mg tablet prn active Not Available Not Available Not Available fluconazole 150 mg tablet 02/20 completed Not Available Not Available Not Available benzonatate 200 mg capsule active pt not taking TL Not Available Not Available Not Available hydrocodone 5 mg-acetamin ophen 325 mg tablet active pt not taking TL Not Available Not Available Not Available famotidine 40 mg tablet 02/20 completed Not Available Not Available Not Available prednisone 20 mg tablet active pt not taking TL Not Available Not Available Not Available clobetasol 0.05 % topical cream 02/20 completed Not Available Not Available Not Available metronidazo le 500 mg tablet 02/20 completed Not Available Not Available Not Available sulfamethox azole 800 mg-trimetho prim 160 mg tablet 02/20 completed Not Available Not Available Not Available triamcinolo ne acetonide 0.1 % topical cream 02/20 completed Not Available Not Available Not Available oxycodone-a cetaminophe n 5 mg-325 mg tablet 02/20 completed Not Available Not Available Not Available amoxicillin 875 mg tablet 02/20 completed Not Available Not Available Not Available DOK 100 mg capsule 02/20 completed Not Available Not Available Not Available meclizine 25 mg tablet 02/20 completed Not Available Not Available Not Available nystatin 100,000 unit/gram topical cream active pt not taking TL Not Available Not Available Not Available calcipotrie ne 0.005 % topical cream active Not Available Not Available Not Available promethazin e 25 mg tablet active pt not taking TL Not Available Not Available Not Available hydroxyzine HCl 25 mg tablet active pt not taking TL Not Available Not Available Not Available ergocalcife rol (vitamin D2) 1,250 mcg (50,000 unit) capsule active Not Available Not Available Not Available clobetasol 0.05 % topical ointment active Not Available Not Available Not Available clobetasol 0.05 % scalp solution 02/20 completed Not Available Not Available Not Available metformin ER 500 mg tablet,exte nded release 24 hr 02/20 completed Not Available Not Available Not Available bupropion HCl XL 150 mg 24 hr tablet, extended release 02/20 completed Not Available Not Available Not Available topiramate 50 mg tablet 02/20 completed Not Available Not Available Not Available nitrofurant oin monohydrate /macrocryst als 100 mg capsule 02/20 completed Not Available Not Available Not Available Vitamin D 50.000 iu oncea week active Not Available Not Available No t Available ProAir HFA 90 mcg/actuati on aerosol inhaler active pt not taking TL Not Available Not Available Not Available Vitals Date Recorded Body height Body mass index (BMI) Body weight Heart rate Respiratory rate Oxygen saturation Oxygen saturation in Arterial blood by Pulse oximetry Systolic blood pressure Diastolic blood pressure Provider Name and Address Organization Details Last Updated DateTime 0 157.48 cm 55.1 kg/m2 921568. 3 g 78 /min 18 /min 98 % 98 % 146 mm[Hg] 100 mm[Hg] Ariana Mathias [place] - [facility] 0 12:23:46 Date Recorded Body height Provider Name an d Address Organization Details Last Updated DateTime 04/09/2020 157.48 cm PIO PRYOR [place] - [facility] 04/09/2020 13:49:51 Social History Question Answer Notes LastModified by Organizat ion Details LastModified Time Tobacco Smoking Status Never Smoker Ariana hernandez, [place] - [facility] 02/21/2020 12:26:57 Do You Have An Advance Directive? No Information not available 02/21/2020 What Is Your Level Of Alcohol Consumption? Occasional Information not available 02/21/2020 What Is Your Level Of Caffeine Consumption? Occasional Information not available 02/21/2020 How Much Tobacco Do You Chew? None [email or web address] Information not available 02/21/2020 What Type Of Diet Are You Following? REGULAR Information not available 02/21/2020 Which Illicit Or Recreational Drugs Have You Used? No Information not available 02/21/2020 Do You Or Have You Ever Used E-cigarettes Or Vape? Never Used Electronic Cigarettes Information not available 04/08/2020 Live Alone Or With Others? With Others [email or web address] Information not available 02/21/2020 Mar[facility] Status [email or web address] Informatio n not available 02/21/2020 What Was The Date Of Your Most Recent Tobacco Screening? 02/21/2020 Information not available 04/08/2020 How Many Children Do You Have? 3 Information not available 02/21/2020 Do You Or Have You Ever Used Smokeless Tobacco? Never Used Smokeless Tobacco Information not available 04/08/2020 How Much Tobacco Do You Smoke? No Information not available 04/08/2020 General Stress Level Low Information not available 02/21/2020 How Many Years Have You Smoked Tobacco? 0 Information not available 04/08/2020 Sex: Unknown Functional Status Question Answer Note LastModified by Organization D etails LastModified Time What is your exercise level? Moderate Information not available 02/21/2020 Mental Status None recorded. Family History Nothing Reported. Medical History Condition Response Hypertension Y Gynecological HistoryNo gynecological history recorded. Obstetrics History GPAL:G 0 P 0 0 0 0 Past Encounters Encounter ID Performer Location Encounter Start Date Encounter Closed Date Diagnosis/Indication Diagnosis SNOMED-CT Code Diagnosis ICD10 Code Diagnosis Note [id number] Rabiaareli [facility] Office [address] [place] [address] 02/21/2020 11:51:43 02/21/2020 12:40:29 Chest pain 49926782 R07.9 Very atypical for anginaChec k 2D echocardio gram Obesity 015757646 E66.9 Weight loss, 20 pounds Exercise advised Electrocar diogram abnormal 640354105 R94.31 Check 2D echocardio gram Essential hypertension 01194098 I10 Monitor closely. Consider start antihypert enisves if remains elevated. [id number] [facility] [address] [place] [address] [place] [address] 04/09/2020 13:48:08 04/09/2020 14:11:33 Chest pain 76347359 R07.9 04/09/2020 Resolved. Has stopped taking phentermin e for weight. Advised to stay off of this medication . 04/01/20 ECHO: Study quality: technicall y difficult. Technical limitation s- body habitus, morbid obesity. LV chamber size is normal. LV wall thickness is normal. The estimated left ventricle ejection fraction is 55-60% (normal). The aortic valve is structural ly normal. The mitral valve is structural ly normal. The estimated RV systolic pressure is normal. There is no pericardia l effusion present Essential hypertension 65020411 I10 04/09/2020 Checking her BP at home. Reports 120-130's since she has stopped taking phentermin e for weight. Advised to stay off of this medication .consider starting antihypert ensives if BP remains elevated. Patient to check BP at home. Obesity 645489819 E66.9 04/09/2020 Weight loss, 20 pounds Exercise advised Electrocar diogram abnormal 113878562 R94.31 04/09/2020 04/01/20 ECHO: Study quality: technicall y difficult. Technical limitation s- body habitus, morbid obesity. LV chamber size is normal. LV wall thickness is normal. The estimated left ventricle ejection fraction is 55-60% (normal). The aortic valve is structural ly normal. The mitral valve is structural ly normal. The estimated RV systolic pressure is normal. There is no pericardia l effusion present Health Concerns Section Related Observation LastModified by Organization Detai ls LastModified Time None Recorded Concern Status LastModified by Organization Details LastModified Time None Recorded Advance Directives Directive N: Payers Encounter Date Sequence Insurance Name Policy Number Policy Bowles Covered Member ID Bowles Member ID Guarantor Name 02/21/2020 1 [facility] (MEDICAID HMO) [id number] Sara Gutierrez [id number] Sara Gutierrez 04/09/2020 1 [facility] (MEDICAID HMO) [id number] Sara Gutierrez [id number] Sraa Gutierrez Notes Date Note Type Note Provider Name and Address Organization Details Recorded Time 02/21/2020 text/html 02/21/2020 CC: 34 year-old woman came for cardiac consultation referred with a chief complaint of chest pain. She was started on phentermine in attempt to loose weight, since then she reported chest pains described as sharp pain, on the right side, it comes and goes and last for few seconds. Not provoked by exercise. She denies palpitations. She stopped phentermine but continues to experience chest pain. Her BP is elevated today. She is not on any antihypertensives. NOt associated with shortness of breath or Dizziness Results from this visit, or from the past: Genesis Mckay [place], [place] - [facility] 02/23/2020 16:56:41 04/09/2020 text/html 04/09/20 CC: 34 year-old woman came for cardiac consultation referred with a chief complaint of chest pain. She was started on phentermine in attempt to loose weight, since then she reported chest pains described as sharp pain, on the right side, it comes and goes and last for few seconds. Not provoked by exercise. She denies palpitations. She stopped phentermine but continues to experience chest pain. Her BP is elevated today. She is not on any antihypertensives. NOt associated with shortness of breath or Dizziness Results from this visit, or from the past:EKG 02/21/2020 Low voltage, chest leads. Flat T waves, anterior leads04/01/20 ECHO: Study quality: technically difficult. Technical limitations- body habitus, morbid obesity. LV chamber size is normal. LV wall thickness is normal. The estimated left ventricle ejection fraction is 55-60% (normal). The aortic valve is structurally normal. The mitral valve is structurally normal. The estimated RV systolic pressure is normal. There is no pericardial effusion present. Irregular. Genesis Hair [facility], [place] - [facility] 04/12/2020 00:44:19 OBGyn Episode No OBEpisode recorded.
--- OUTSIDE RECORDS SUMMARY | 2024-10-09 16:43 | XMS_ITS | Encounter Summary ---
Author Organization [facility] Healthcare Address [address] [place] [address] Care Team Providers Care Transmission Mechanic Name Role Phone Yovanny Lamar MD Unavailable [phone] Belinda Martin MD Primary Care Provider [phone] Encounter Details Date Type Department Care Team (Late st Contact Info) Description 09/27/2024 Results Follow-Up [facility] Medical Group at the [address] [place] [address] Belinda Martin MD [address] [place] [address] [address] [place] [address] Social History Tobacco Use Types Packs/Day Years Used Date Smoking Tobacco: Never Smokeless Tobacco: Never Alcohol Use Standard Drinks/Week Comments Yes 0 (1 standard drink = 0.6 oz pur e alcohol) occasionally AUDIT-C Answer Date Recorded Q1: How often do you have a drink containing alc ohol? Monthly or less 07/25/2024 Q2: How many drinks containi ng alcohol do you have on a typical day when you are drinking? 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 Gender Identity Not on file Sexual Orientation Not on file documented as of this encounter Ordered Prescriptions Prescription Sig Dispense Quantity Refills Last Filled Start Date End Date ergocalciferol (VITAMIN D) 50,000 unit capsule Take 1 capsule (50,000 Units total) by mouth once a week for 12 doses 12 capsule 09/27/2024 5 cholecalciferol (VITAMIN D-3) 2000 unit capsule Take 1 capsule (2,000 Units total) by mouth daily 90 capsule 3 09/27/2024 5 documented in this encounter Plan of Treatment Not on file documented as of this encounter Visit Diagnoses Not on filedocumented in this encounter Discontinued Medications Medication Sig Discontinue Reason Start Date End Da te cholecalciferol (VITAMIN D-3) 2000 unit capsule Take 1 capsule (2,000 Units total) by mouth daily 09/27/2024 09/27/2024 ergocalciferol (VITAMIN D) 50,000 unit capsule Reorder 03/26/2020 5 documented as of this encounter Care Teams Transmission Mechanic Relationship Specialty Start Date End Date Belinda Martin MD [address] [place] [address] [address] [place] [address] [address] PCP - General Internal Medicine 08/08/24 Yovanny Lamar MD Medical Oncologist/Pharmacy Service Associate Hematology and Oncology 11/09/22 documented as of this encounter
--- OUTSIDE RECORDS SUMMARY | 2024-10-09 16:43 | XMS_ITS | Encounter Summary ---
Author Organization [facility] Health Address [address] [place] [address] Care Team Providers Care Commercial Real Estate Paralegal Name Role Phone Provider, No Pcp Primary Care Provider Unavailab le Encounter Details Date Type Department Care Team (Late st Contact Info) Description 08/22/2024 Telephone [facility] - Centralized Scheduling [address] [place] [address] Sofie Dia, PA [address] [place] [id number] Social History Tobacco Use Types Packs/Day Years Used Date Smoking Tobacco: Never Smokeless Tobacco: Never Alcohol Use Standard Drinks/Week Comments Yes 0 (1 standard drink = 0.6 oz pur e alcohol) 2x a month AUDIT-C Answer Date Recorded Frequency of Alcohol Consumption Never 07/23/2019 Average Number of Drinks Not on file 020 Frequency of Binge Drinking Not on file 09/2019 Comments No Sex and Gender Information Value Date Recorded Sex Assigned at Not on file Legal Sex Female 10:57 AM CDT Gender Identity Not on file Sexual Orientation Not on file documented as of this encounter Functional Status * Is person deaf or have serious hearing difficulty? Answer Date of Assessment Author No 09/03/2021 11:40 AM RACHEALT Ameya Pandya RN * Is person blind or have serious difficulty seeing? Answer Date of Assessment Author No 09/03/2021 11:40 AM RACHEALT Ameya Pandya RN * Does person have serious difficulty walking/climbing stairs? Answer Date of Assessment Author No 09/03/2021 11:40 AM CDT Ameya Pandya RN * Does person have difficulty dressing/bathing? Answer Date of Assessment Author No 09/03/2021 11:40 AM CDT Ameya Pandya RN * Does person have difficulty doing errands alone? Answer Date of Assessment Author No 09/03/2021 11:40 AM RACHEALT Ameya Pandya RN documented as of this encounter Mental Status * Does person have difficulty concentrating/remembering/making decisions? Answer Entry Date Author No 09/03/2021 11:40 AM CDT Ameya Pandya RN documented in this encounter Miscellaneous Notes * Telephone Encounter - Sofie Dia PA - 08/26/2024 3:14 PM CDT Order sent to [facility] * Telephone Encounter - Alisha Ortiz - 08/26/2024 1:57 PM CDT Pt pharmacy is [facility] Specialty and per the note below the Cyltezo is not serviceable and would like anew medication rx sent over. Please advise. Alisha Ortiz * Telephone Encounter - Nat Trevino - 08/22/2024 12:05 PM CST Adalimumab-adbm (Cyltezo, 2 Pen,) 40 MG/0.4ML AJKT is not servicable at this pharmacy can an order for an alternative be sent to [facility] specialty pharmacy OR PROJECT ACCOUNTANT documented in this encounter Plan of Treatment Upcoming Encounters Date Type Department Care Team (Late st Contact Info) Description 11/04/2024 2:30 PM CDT Office Visit [facility] - Dermatology [address] [place] [address], [place] [address] Sofie Dia PA [address] [place] [address] [address] [place] [address] documented as of this encounter Visit Diagnoses Diagnosis Psoriasis Other psoriasis documented in this encounter Care Teams Commercial Real Estate Paralegal Relationship Specialty Start Date End Date Provider, No Pcp PCP - General 06/03/24 documented as of this encounter
--- OUTSIDE RECORDS SUMMARY | 2024-10-09 16:43 | XMS_ITS | Referral Summary ---
Author Organization [facility] Address [address] [place] [address] Care Team Providers Care Software Client Architect Name Role Phone Yovanny Lamar MD Unavailable [phone] Belinda Martin MD Primary Care Provider Encounters Date Type Department Care Team Description 09/27/2024 Results Follow-Up [facility] at the [address] [phone] Belinda Martin MD 09/26/2024 1:07 PM CDT - 09/26/2024 11:59 PM CDT Hospital Encounter [facility] [address] [place] [address] Discharge Disposition: Discharge to home or self care 09/26/2024 Orders Only [facility] at the [address] [phone] Belinda Martin MD Preventative health care; Vitamin D deficiency; Acute intractable headache, unspecified headache type; Fatigue, unspecified type; Anemia, unspecified type; Health care maintenance 09/26/2024 1:00 PM CDT Office Visit [facility] at the [address] [phone] Belinda Martin MD Health care maintenance (Primary Dx); Anemia, unspecified type; Fatigue, unspecified type; Vitamin D deficiency; Preventative health care; Acute intractable headache, unspecified headache type; Type 2 diabetes mellitus without complication, without long-term current use of insulin (HCC); Morbid obesity due to excess calories (HCC) 09/26/2024 Nurse Triage [facility] at the [address] [phone] Belinda Martin MD 09/14/2024 Results Follow-Up [facility] at the [address] [phone] Belinda Martin MD 09/09/2024 9:05 AM CDT - 09/09/2024 11:59 PM CDT Hospital Encounter [facility] ([facility]) [address] [place] [phone] Encounter for screening mammogram for breast cancer Discharge Disposition: Discharge to home or self care 08/13/2024 Telephone [facility] at the [address] [phone] Belinda Martin MD Medical Records Request 08/12/2024 Results Follow-Up [facility] at the [address] [phone] Belinda Martin MD 08/08/2024 3:11 PM RUNNING INSTRUCTOR - 08/08/2024 11:59 PM RUNNING INSTRUCTOR Hospital Encounter [address] [address] Discharge Disposition: Discharge to home or self care 08/08/2024 Orders Only [facility] at the [address] [phone] Belinda Martin MD Type 2 diabetes mellitus with hyperlipidemia (HCC); Need for hepatitis B screening test; Psoriatic arthritis (HCC); Health care maintenance; Healthcare maintenance; Abnormal glucose 08/08/2024 2:30 PM RUNNING INSTRUCTOR Office Visit [facility] at the [address] [phone] Belinda Martin MD Abnormal glucose (Primary Dx); Healthcare maintenance; Health care maintenance; Need for hepatitis B screening test; Psoriatic arthritis (HCC); Encounter for screening mammogram for breast cancer; Type 2 diabetes mellitus with hyperlipidemia (HCC); Type 2 diabetes mellitus without complication, without long-term current use of insulin (HCC); Morbid obesity due to excess calories (HCC); Hypertension associated with diabetes (HCC) 08/01/2024 Telephone [facility] Ophthalmology [address] [place] [address] Trae Mcmahon, CLAUDE r/s 07/25/2024 11:46 AM RUNNING INSTRUCTOR - 07/25/2024 11:59 PM RUNNING INSTRUCTOR Hospital Encounter [facility] [address] [place] [address] Mixed incontinence Discharge Disposition: Discharge to home or self care 07/25/2024 9:00 AM RUNNING INSTRUCTOR Office Visit [facility] Obstetrics and Gynecology [address] [facility] 7th Floor [address] [place] [address] Meng Burdick MD Pelvic pain in female (Primary Dx); Surgical menopause; Vasomotor symptoms due to menopause; Atrophic vaginitis; Dyspareunia in female; History of hysterectomy with bilateral oophorectomy; Mixed incontinence; Morbid obesity (HCC); Iron deficiency anemia due to chronic blood loss; Type 2 diabetes mellitus without complication, without long-term current use of insulin (HCC); Rheumatoid arthritis involving multiple sites, unspecified whether rheumatoid factor present (HCC); Anomalous optic nerve (HCC) 07/15/2024 2:15 PM RUNNING INSTRUCTOR Lab [facility] - Lab Collection [address] [facility] Floor [address] [place] [address] Iron deficiency anemia due to chronic blood loss 07/15/2024 2:00 PM RUNNING INSTRUCTOR Lab [facility] Oncology Lab [address] [facility] [address] [place] [address] from Last 3 Months Allergies Active Allergy Reactions Criticality Noted Date Comments Adhesive Rash Medium 09/03/2021 Electrode sensitivity; cloth tape Iron Dextran Shortness of breath,Itching,Wheezing High 09/22/2023 Medications ketoconazole (NIZORAL) 2 % shampoo 07/23/19 20 Active omeprazole (PriLOSEC) 40 mg capsule Take 1 capsule (40 mg total) by mouth daily 30 capsule 11 08/28/19 22 Active clobetasoL (TEMOVATE) 0.05 % ointment 11/04/19 23 Active oxyBUTYnin XL (DITROPAN-XL) 10 mg 24 hr tablet Take 1 tablet (10 mg total) by mouth daily 03/27/20 24 Active estradioL (ESTRACE) 0.01 % (0.1 mg/gram) vaginal creamIndications :Atrophic vaginitis,Dyspar eunia in female,Mixed incontinence Apply nightly to vagina for 1 week, then Monday// Monday 42.5 g 5 07/25/19 25 Active amLODIPine (NORVASC) 5 mg tablet Take 1 tablet (5 mg total) by mouth daily 90 tablet 3 08/08/19 25 026 Active meloxicam (MOBIC) 15 mg tablet Take 1 tablet (15 mg total) by mouth daily 30 tablet 08/08/19 25 Active adalimumab-adbm 40 mg/0.4 mL pen injector kit Inject 40 mg under the skin as directed 08/27/19 25 Active amoxicillin (AMOXIL) 875 mg tablet Active cephalexin (KEFLEX) 500 mg capsule TAKE 1 CAPSULE BY MOUTH FOUR TIMES DAILY FOR 10 DAYS Active predniSONE (DELTASONE) 10 mg tablet Take 1 tablet (10 mg) by mouth 2 (two) times a day 08/23/19 25 Active SUMAtriptan (IMITREX) 50 mg tabletIndication s:Migraine Take 1 tablet (50 mg total) by mouth once as needed for migraine May repeat after 2 hours. 27 tablet 4 09/27/19 25 026 Active tirzepatide (Mounjaro) 5 mg/0.5 mL pen injector injection Inject 0.5 mL (5 mg total) under the skin every 7 days 2 mL 3 09/27/19 25 025 Active ergocalciferol (VITAMIN D) 50,000 unit capsule Take 1 capsule (50,000 Units total) by mouth once a week for 12 doses 12 capsule 09/28/19 25 025 Active ergocalciferol (VITAMIN D) 50,000 unit capsule 03/26/20 20 025 Discontinued(Re order) tirzepatide (Mounjaro) 2.5 mg/0.5 mL pen injector injection Inject 0.5 mL (2.5 mg total) under the skin every 7 days 2 mL 08/08/19 25 025 Discontinued(Re order) tirzepatide (Mounjaro) 2.5 mg/0.5 mL pen injector injectionIndicat ions:Type 2 diabetes mellitus without complication, without long-term current use of insulin (HCC) Inject 0.5 mL (2.5 mg total) under the skin every 7 days 2 mL 09/13/19 25 025 Discontinued cholecalciferol (VITAMIN D-3) 2000 unit capsule Take 1 capsule (2,000 Units total) by mouth daily 90 capsule 3 09/28/19 25 025 Discontinued Active Problems Problem Noted Date Diagnosed Date Hypertension associated with diabetes 08/08/2024 Assessment & Plan (08/08/2024 3:01 PM RUNNING INSTRUCTOR): Chronic, poorly controlled in setting of being out of her blood pressure medicines. Refilled amlodipine 5 mg daily History of hysterectomy with bilateral oophorect mirza 07/25/2024 Mixed incontinence 07/25/2024 Vasomotor symptoms due to menopause 07/25/2024 Pelvic pain in female 07/25/2024 Surgical menopause 07/25/2024 Type 2 diabetes mellitus wit hout complication, without long-term current use of insulin 07/25/2024 Assessment & Plan (09/26/2024 1:36 PM CDT): Chronic well-controlled increase Mounjaro 2 5 mg weekly Assessment & Plan (08/08/2024 3:00 PM RUNNING INSTRUCTOR): Chronic, poorly controlled in setting of running out of medications, we will refill Mounjaro at starting dose 2.5 mg weekly Anomalous optic nerve 05/29/2024 Assessment & Plan (05/30/2024 8:25 AM RUNNING INSTRUCTOR): 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 Reports no peripheral vision changes. NO obscuration of BV at disc with normal RNFL. Monitor in 2-3mo after updating specs Hyperopia of both eyes 05/29/2024 Assessment & Plan (05/30/2024 8:24 AM RUNNING INSTRUCTOR): Symptoms consistent with mild hyperopia and presbyopia. Educated to update specs and wear FT. Will schedule interval f/u. RTC w any new or worsening symptoms Herpes simplex 08/06/2023 Prediabetes 08/06/2023 Hypertensive disorder 08/06/2023 Acute bronchitis 02/27/2023 Rash 01/09/2023 Bilateral plantar fasciitis 11/15/2022 Calcaneal spur 11/15/2022 Congenital pes planus 11/15/2022 Arthritis 11/15/2022 Diabetes mellitus 11/15/2022 Iron deficiency anemia 11/09/2022 Menorrhagia 10/24/2022 Bone spur of right foot 09/27/2022 Vitamin D deficiency 09/27/2022 Assessment & Plan (09/26/2024 1:36 PM CDT): Orders: Vitamin D 25 hydroxy; Future Type 2 diabetes mellitus without complications 0 09/27/2022 Chronic low back pain 09/26/2022 Elevated blood-pressure read ing without diagnosis of hypertension 09/26/2022 Gastroesophageal reflux disease without esophagi tis 09/26/2022 Weight gain 09/26/2022 Iron deficiency anemia 09/26/2022 Osteoarthritis of left knee 02/14/2022 Pain of right heel 02/14/2022 Acute meniscal tear of right knee 04/20/2021 Osteoarthritis of right knee 04/20/2021 Morbid obesity due to excess calories 05/18/2020 Overview (05/18/2020): Added automatically from request for surgery [id number] Assessment & Plan (09/26/2024 1:36 PM CDT): Chronic, stable BMI Follow-up includes: nutrition counseling, exercise counseling, and education provided. Assessment & Plan (08/08/2024 3:00 PM RUNNING INSTRUCTOR): Chronic, poorly controlled BMI Follow-up includes: nutrition counseling, exercise counseling, and education provided. Morbid obesity 05/07/2020 Electrocardiogram abnormal 04/08/2020 Essential hypertension 04/08/2020 Obesity 04/08/2020 Chest pain 02/21/2020 Polyarthralgia 02/06/2020 Postinflammatory hyperpigmentation 03/21/2017 Psoriasis 03/21/2017 Drug indicated 09/04/2012 Overview (09/22/2016): High risk medication use Resolved Problems Problem Noted Date Diagnosed Date Resolved Date Pelvic and perineal pain 07/25/202411/2024 No diagnosis on [place] 11/20/202007/25 Rheumatoid arthritis 09/04/2012 025 Overview (09/23/2016): Rheumatoid arthritis Immunizations Immunization Administration Dates Next Due DTP 06/15/1990, 7,02/13/1985,12/11,1984 Hep B, Adolescent or Pediatric 04/05/2000,1999,05/11/1999 Influenza, Trivalent, Preser vative Free, Intramuscular 04/30/2024 MMR 02/23/1993,09/09/1985 OPV 06/15/1990, 7,09/23/1986,02/13,1984,1984 Td, adsorbed 05/11/1999 Social History Tobacco Use Types Packs/Day Years Used Date Smoking Tobacco: Never Smokeless Tobacco: Never Tobacco Cessation:Counseling Given: Not Answered Alcohol Use Standard Drinks/Week Comments Yes 0 [...] on file Legal Sex Female 9:48 PM RUNNING INSTRUCTOR Gender Identity Not on file Sexual Orientation Not on file Last Filed Vital Signs Vital Sign Reading Time Taken Comments Blood Pressure 122/60 09/26/2024 12:39 PM CDT Pulse 87 09/26/2024 12:39 PM CDT Temperature 36.7 C (98 F) 05/07/2024 3:37 PM RUNNING INSTRUCTOR Respiratory Rate 20 09/26/2024 12:3 9 PM CDT Oxygen Saturation 99% 09/26/2024 12: 39 PM CDT Inhaled Oxygen Concentration - - Weight 137.6 kg (303 lb 6.4 oz) 025 12:39 PM CDT Height 162 cm (5' 3.78 ) 09/26/2024 12: 39 PM CDT Body Mass Index 52.44 09/26/2024 12:39 PM CDT Plan of Treatment Not on file Procedures Procedure Name Priority Date/Time Associated Diagnosis Comments EGFR Routine 09/26/2024 1:07 PM CDT Preventative health care DIFFERENTIAL AUTO Routine 09/26/2024 1:0 7 PM CDT Health care maintenance CBC WITH AUTO DIFFERENTIAL Routine 09/26/2024 1:07 PM CDT Health care maintenance FERRITIN Routine 09/26/2024 1:07 PM CDT Acute intractable headache, unspecified headache type IRON PROFILE W/ IBC Routine 09/26/2024 1 :07 PM CDT Anemia, unspecified type T4, FREE Routine 09/26/2024 1:07 PM CDT Fatigue, unspecified type TSH Routine 09/26/2024 1:07 PM CDT Fatigue, unspecified type VITAMIN B12 Routine 09/26/2024 1:07 PM CDT Acute intractable headache, unspecified headache type VITAMIN D 25 HYDROXY Routine 09/26/2024 1:07 PM CDT Vitamin D deficiency COMPREHENSIVE METABOLIC PANEL Routine 09/26/2024 1:07 PM CDT Preventative health care SCREENING MAMMOGRAM BILATERAL W LUKASZ Schedule Routine, Read Routine (OP Routine) 09/09/2024 9:21 AM CDT Encounter for screening mammogram for breast cancer EGFR Routine 08/08/2024 3:09 PM RUNNING INSTRUCTOR Psoriatic arthritis (HCC) DIFFERENTIAL AUTO Routine 08/08/2024 3:0 9 PM RUNNING INSTRUCTOR Health care maintenance HEMOGLOBIN A1C Routine 08/08/2024 3:09 PM RUNNING INSTRUCTOR Abnormal glucose LIPID PANEL Routine 08/08/2024 3:09 PM RUNNING INSTRUCTOR Healthcare maintenance COMPREHENSIVE METABOLIC PANEL Routine 08/08/2024 3:09 PM RUNNING INSTRUCTOR Psoriatic arthritis (HCC) CBC WITH AUTO DIFFERENTIAL Routine 08/08/2024 3:09 PM RUNNING INSTRUCTOR Health care maintenance ALBUMIN CREATININE RATIO, URINE Routine 08/08/2024 3:09 PM RUNNING INSTRUCTOR Type 2 diabetes mellitus with hyperlipidemia (HCC) T-SPOT.TB Routine 08/08/2024 3:09 PM RUNNING INSTRUCTOR Psoriatic arthritis (HCC) HEPATITIS PANEL, ACUTE Routine 08/08/2024 3:09 PM RUNNING INSTRUCTOR Psoriatic arthritis (HCC) HEPATITIS B CORE ANTIBODY, TOTAL Routine 08/08/2024 3:09 PM RUNNING INSTRUCTOR Need for hepatitis B screening test URINALYSIS AND REFLEX TO MICROSCOPIC Routine 07/25/2024 9:58 AM RUNNING INSTRUCTOR Mixed incontinence URINE CULTURE Routine 07/25/2024 9:58 AM RUNNING INSTRUCTOR Mixed incontinence DIFFERENTIAL AUTO Routine 07/15/2024 2:2 5 PM RUNNING INSTRUCTOR Iron deficiency anemia due to chronic blood loss CBC WITH AUTO DIFFERENTIAL Routine 07/15/2024 2:25 PM RUNNING INSTRUCTOR Iron deficiency anemia due to chronic blood loss FERRITIN Routine 07/15/2024 2:25 PM RUNNING INSTRUCTOR Iron deficiency anemia due to chronic blood loss RETICULOCYTES Routine 07/15/2024 2:25 PM RUNNING INSTRUCTOR Iron deficiency anemia due to chronic blood loss IRON PROFILE W/ IBC Routine 07/15/2024 2 :25 PM RUNNING INSTRUCTOR Iron deficiency anemia due to chronic blood loss from Last 3 Months Results * eGFR (09/26/2024 1:07 PM CDT) eGFR >90 >=60 mL/min/1. 73 m2 Comment: Interpretive Data Reference Interval Normal >/= 90 mL/min/1.73m2 Mildly decreased* 60 - 89 mL/min/1.73m2 Mildly to moderately decreased 45 - 59 mL/min/1.73m2 Moderately to severely decreased 30 - 44 mL/min/1.73m2 Severely decreased 15 - 29 mL/min/1.73m2 Kidney Failure < 15 mL/min/1.73m2 *Relative to young adult level Estimated glomerular filtration rate is determined by the 2020 CKD-EPI equation recommended by the National Kidney [employer] (A Unifying Approach to GFR Estimation: Recommendations of the NKF-ASK Task Force on Reassessing the Inclusion of Race in Diagnosing Kidney Disease, JASN 202). The CKD-EPI equation should not be used for patients with unstable renal function and has not been validated in children and those over 70. Current interpretive data was last reviewed 2021. Blood 09/26/2024 1:07 PM CDT 09/26/2024 6:21 PM CDT us Belinda Martin MD LAB BLOOD ORDERABLES Final Result [facility] One [facility] Department [place] [address] * Differential, auto (09/26/2024 1:07 PM CDT) Pathologist [facility] Neutrophil abs 6.19 1.50 - 6.50 K/cumm Imm gran abs 0.04 0.00 - 0.10 K/cumm [facility] Lymphocyte abs 2.36 0.80 - 3.30 K/cumm [facility] Monocyte abs 0.47 0.20 - 0.80 K/cumm [facility] Eosinophil abs 0.08 0.00 - 0.50 K/cumm [facility] Basophil abs 0.03 0.00 - 0.10 K/cumm [facility] Neutrophil pct 67.6 % [facility] Comment: Interpretive Data Percent cell count reference ranges are not reported, since discordance with absolute values may lead to misinterpretation of CBC data. Current Interpretive Data was last revised on 2017. Imm gran pct 0.4 % [facility] Comment: Interpretive Data Percent cell count reference ranges are not reported, since discordance with absolute values may lead to misinterpretation of CBC data. Current Interpretive Data was last revised on 2017. Lymphocyte pct 25.7 % [facility] Comment: Interpretive Data Percent cell count reference ranges are not reported, since discordance with absolute values may lead to misinterpretation of CBC data. Current Interpretive Data was last revised on 2017. Monocyte pct 5.1 % [facility] Comment: Interpretive Data Percent cell count reference ranges are not reported, since discordance with absolute values may lead to misinterpretation of CBC data. Current Interpretive Data was last revised on 2017. Eosinophil pct 0.9 % [facility] Comment: Interpretive Data Percent cell count reference ranges are not reported, since discordance with absolute values may lead to misinterpretation of CBC data. Current Interpretive Data was last revised on 2017. Basophil pct 0.3 % [facility] Comment: Interpretive Data Percent cell count reference ranges are not reported, since discordance with absolute values may lead to misinterpretation of CBC data. Current Interpretive Data was last revised on 2017. Blood 09/26/2024 1:07 PM CDT 09/26/2024 6:01 PM CDT us Belinda Martin MD LAB BLOOD ORDERABLES Final Result Performing Organization Address City/[facility]/ZIP Co de Phone Number [facility] Department [place] [address] * (ABNORMAL) Iron profile w/ IBC (09/26/2024 1:07 PM CDT) [facility] Iron 42 35 - 145 mcg/dL TIBC 270 250 - 400 mcg/dL [facility] Transferrin saturation 16(L) 20 - 50 % [facility] Blood 09/26/2024 1:07 PM CDT 09/26/2024 6:01 PM CDT Belinda Martin MD LAB BLOOD ORDERABLES Final Result Performing Organization Address [facility] Co de Phone Number [facility] Department [place] [address] * (ABNORMAL) CBC with auto differential (09/26/2024 1:07 PM CDT) [facility] WBC 9.17 3.80 - 9.90 K/cumm Hgb 11.2(L) 11.9 - 15.5 g/dL [facility] Hct 35.7 35.6 - 45.5 % [facility] Plt 426(H) 150 - 400 K/cumm [facility] MPV 10.7 9.1 - 12.3 fL [facility] RBC 4.33 3.90 - 5.20 M/cumm [facility] MCV 82.4 81.3 - 96.4 fL [facility] MCH 25.9(L) 27.1 - 33.3 pg [facility] MCHC 31.4(L) 32.3 - 35.7 g/dL [facility] RDW CV 14.3 11.1 - 14.9 % [facility] RDW SD 42.7 35.7 - 48.1 fL [facility] NRBC abs 0.00 0.00 - 0.01 K/cumm [facility] Blood 09/26/2024 1:07 PM CDT 09/26/2024 6:01 PM CDT Belinda Martin MD LAB BLOOD ORDERABLES Final Result Performing Organization Address [facility] Co de Phone Number [facility] [place] [address] * (ABNORMAL) Vitamin D 25 hydroxy (09/26/2024 1:07 PM CDT) Vitamin D 25-OH 27(L) 30 - 80 ng/mL Blood 09/26/2024 1:07 PM CDT 09/26/2024 6:01 PM CDT Belinda Martin MD LAB BLOOD ORDERABLES Final Result Performing Organization Address [facility] Phone Number [facility] [place] [address] * TSH (09/26/2024 1:07 PM CDT) Thyroid Stimulating Hormone 0.76 0.30 - 4.20 mcIUnit/mL Blood 09/26/2024 1:07 PM CDT 09/26/2024 6:01 PM CDT Belinda Martin MD LAB BLOOD ORDERABLES Final Result Performing Organization Address [facility] de Phone Number [facility] [place] [address] * T4, free (09/26/2024 1:07 PM CDT) Free T4 1.19 0.90 - 1.70 ng/dL Blood 09/26/2024 1:07 PM CDT 09/26/2024 6:01 PM CDT Belinda Martin MD LAB BLOOD ORDERABLES Final Result Performing Organization Address [facility] Co de Phone Number [facility] Department [place] [address] * (ABNORMAL) Ferritin (09/26/2024 1:07 PM CDT) [facility] Ferritin 264(H) 13 - 150 ng/mL Blood 09/26/2024 1:07 PM CDT 09/26/2024 6:01 PM CDT Belinda Martin MD LAB BLOOD ORDERABLES Final Result Performing Organization Address City/State/[facility] Co de Phone Number [facility] [place] [address] * Vitamin B12 (09/26/2024 1:07 PM CDT) [facility] Vitamin B12 483 230 - 1,250 pg/mL Blood 09/26/2024 1:07 PM CDT 09/26/2024 6:01 PM CDT Belinda Martin MD LAB BLOOD ORDERABLES Final Result Performing Organization Address City/[facility] Co de Phone Number [facility] Department [place] [address] * Comprehensive metabolic panel (09/26/2024 1:07 PM CDT) [facility] Sodium 141 135 - 145 mmol/L Potassium, pl 3.8 3.3 - 4.9 mmol/L [facility] Chloride 102 97 - 110 mmol/L [facility] CO2 27 22 - 32 mmol/L [facility] Anion gap 12 2 - 15 mmol/L [facility] BUN 14 6 - 25 mg/dL [facility] Creatinine 0.66 0.60 - 1.10 mg/dL [facility] Glucose 94 70 - 199 mg/dL [facility] Comment: Interpretive Data Fasting glucose >/= 126 mg/dl is diagnostic for diabetes. Fasting is defined as no caloric intake for at least 8 hours. Fasting glucose between 100 mg/dl to 125 mg/dl is diagnostic of prediabetes. In a patient with classic symptoms of hyperglycemia or hyperglycemic crisis, a random glucose >/= 200 mg/dl is diagnostic for diabetes. In the absence of unequivocal hyperglycemia, results should be confirmed by repeat testing. The classification and Diagnosis of Diabetes Diabetes Care 2021; 46: S19-S40. Current interpretive data was last revised 2022. Calcium 9.9 8.5 - 10.3 mg/dL [facility] Bilirubin, total 0.2 0.1 - 1.2 mg/dL [facility] Protein, pl 8.0 6.5 - 8.5 g/dL [facility] Albumin 4.0 3.5 - 5.0 g/dL [facility] Alk phos 108 40 - 130 Units/L [facility] ALT 20 7 - 45 Units/L [facility] AST 18 10 - 45 Units/L [facility] Blood 09/26/2024 1:07 PM CDT 09/26/2024 6:01 PM CDT Belinda Martin MD LAB BLOOD ORDERABLES Final Result [facility] One [facility] Department [place] [address] * Screening Mammogram Bilateral W Lukasz (09/09/2024 9:21 AM CDT) Anatomical Region Laterality Modality Breast Bilateral Mammography Narrative 09/10/2024 11:50 AM CDT Mammogram Technique: Bilateral Digital Breast Tomosynthesis, Bilateral C-view 2D Screening mammogram. Views obtained: bilateral craniocaudal and bilateral mediolateral oblique. Computer Aided Detection was performed. Mammogram Findings: The present examination has been compared to prior imaging studies performed at [facility] on 09/29/2022, and at [facility] on 08/09/2021. The breasts are almost entirely fatty. There is no suspicious abnormality in either breast. Impression: There is no mammographic evidence of malignancy. Annual screening mammography is recommended. OVERALL FINAL ASSESSMENT: BI-RADS CATEGORY 1: Negative. Procedure Note Sofie Chairez MD - 09/10/2024 Mammogram Technique: Bilateral Digital Breast Tomosynthesis, Bilateral C-view 2D Screening mammogram. Views obtained: bilateral craniocaudal and bilateral mediolateral oblique. Computer Aided Detection was performed. Mammogram Findings: The present examination has been compared to prior imaging studies performed at [facility] on 09/29/2022, and at [facility] on 08/09/2021. The breasts are almost entirely fatty. There is no suspicious abnormality in either breast. Impression: There is no mammographic evidence of malignancy. Annual screening mammography is recommended. OVERALL FINAL ASSESSMENT: BI-RADS CATEGORY 1: Negative. Belinda Martin MD IMG MAMMO PROCEDURES Final Result * T-SPOT.TB Blood (08/08/2024 3:09 PM RUNNING INSTRUCTOR) T-SPOT.TB Negative SeeBelow Comment: Normal Value: Negative A negative test result does not exclude the possibility of exposure to or infection with Mycobacterium tuberculosis (M. tuberculosis). Patients with recent exposure to TB infected individuals exhibiting a negative T-SPOT.TB result should be considered for retesting within 6 weeks or if other relevant clinical symptoms indicate. Results from T-SPOT.TB testing must be used in conjunction with each individual's epidemiological history, current medical status, and results of other diagnostic evaluations. The T-SPOT.TB test is qualitative and results are reported as positive, borderline or negative, given that the test controls perform as expected. In line with the Centers for Disease Control and Prevention's 2010 recommendation to report quantitative measurements alongside the qualitative result, the laboratory provides spot counts for informational purposes only. The T-SPOT.TB test should not be interpreted as a quantitative test. T-SPOT.TB Panel A Spot Count 0 [facility] T-SPOT.TB Panel B Spot Count 0 [facility] T-SPOT.TB Negative Control Passed [facility] T-SPOT.TB Positive Control [facility]ed [facility] Comment: Test Performed at: [facility] [address] [place] [phone] STEELE,PHD Blood 08/08/2024 3:09 PM RUNNING INSTRUCTOR 08/08/2024 7:53 PM RUNNING INSTRUCTOR us Belinda Martin MD LAB MICROBIOLOGY - GENERAL ORDERABLES Final Result Performing Organization Address City/[facility]/ZIP Co de Phone Number JAMES [facility] [place] [address] * eGFR (08/08/2024 3:09 PM RUNNING INSTRUCTOR) eGFR >90 >=60 mL/min/1. 73 m2 Comment: Interpretive Data Reference Interval Normal >/= 90 mL/min/1.73m2 Mildly decreased* 60 - 89 mL/min/1.73m2 Mildly to moderately decreased 45 - 59 mL/min/1.73m2 Moderately to severely decreased 30 - 44 mL/min/1.73m2 Severely decreased 15 - 29 mL/min/1.73m2 Kidney Failure < 15 mL/min/1.73m2 *Relative to young adult level Estimated glomerular filtration rate is determined by the 2020 CKD-EPI equation recommended by the National Kidney Foundation (A Unifying Approach to GFR Estimation: Recommendations of the NKF-ASK Task Force on Reassessing the Inclusion of Race in Diagnosing Kidney Disease, JASN 2020). The CKD-EPI equation should not be used for patients with unstable renal function and has not been validated in children and those over 70. Current interpretive data was last reviewed 2021. Blood 08/08/2024 3:09 PM RUNNING INSTRUCTOR 08/08/2024 7:49 PM RUNNING INSTRUCTOR us Belinda Martin MD LAB BLOOD ORDERABLES Final Result Performing Organization Address City/[facility]/ZIP Co de Phone Number JAMES [facility] Department [place] [address] * (ABNORMAL) Differential, auto (08/08/2024 3:09 PM RUNNING INSTRUCTOR) Neutrophil abs 7.8(H) 1.5 - 6.5 K/cumm Imm gran abs 0.1 0.0 - 0.1 K/cumm [facility] Lymphocyte abs 2.5 0.8 - 3.3 K/cumm [facility] Monocyte abs 0.5 0.2 - 0.8 K/cumm [facility] Eosinophil abs 0.2 0.0 - 0.5 K/cumm [facility] Basophil abs 0.0 0.0 - 0.1 K/cumm [facility] Neutrophil pct 70.1 % [facility] Comment: Interpretive Data Percent cell count reference ranges are not reported, since discordance with absolute values may lead to misinterpretation of CBC data. Current Interpretive Data was last revised on 2017. Imm gran pct 0.5 % [facility] Comment: Interpretive Data Percent cell count reference ranges are not reported, since discordance with absolute values may lead to misinterpretation of CBC data. Current Interpretive Data was last revised on 2017. Lymphocyte pct 22.8 % [facility] Comment: Interpretive Data Percent cell count reference ranges are not reported, since discordance with absolute values may lead to misinterpretation of CBC data. Current Interpretive Data was last revised on 2017. Monocyte pct 4.8 % [facility] Comment: Interpretive Data Percent cell count reference ranges are not reported, since discordance with absolute values may lead to misinterpretation of CBC data. Current Interpretive Data was last revised on 2017. Eosinophil pct 1.5 % [facility] Comment: Interpretive Data Percent cell count reference ranges are not reported, since discordance with absolute values may lead to misinterpretation of CBC data. Current Interpretive Data was last revised on 2017. Basophil pct 0.3 % [facility] Comment: Interpretive Data Percent cell count reference ranges are not reported, since discordance with absolute values may lead to misinterpretation of CBC data. Current Interpretive Data was last revised on 2017. Blood 08/08/2024 3:09 PM RUNNING INSTRUCTOR 08/08/2024 7:27 PM RUNNING INSTRUCTOR us Belinda Martin MD LAB BLOOD ORDERABLES Final Result [facility] Department [place] [address] * (ABNORMAL) CBC with auto differential (08/08/2024 3:09 PM RUNNING INSTRUCTOR) [facility] WBC 11.1(H) 3.8 - 9.9 K/cumm Hgb 11.1(L) 11.9 - 15.5 g/dL [facility] Hct 35.6 35.6 - 45.5 % [facility] Plt 415(H) 150 - 400 K/cumm [facility] MPV 11.0 9.1 - 12.3 fL [facility] RBC 4.39 3.90 - 5.20 M/cumm [facility] MCV 81.1(L) 81.3 - 96.4 fL [facility] MCH 25.3(L) 27.1 - 33.3 pg [facility] MCHC 31.2(L) 32.3 - 35.7 g/dL [facility] RDW CV 15.0(H) 11.1 - 14.9 % [facility] RDW SD 44.2 35.7 - 48.1 fL [facility] NRBC abs 0.00 0.00 - 0.01 K/cumm [facility] Blood 08/08/2024 3:09 PM RUNNING INSTRUCTOR 08/08/2024 7:27 PM RUNNING INSTRUCTOR us Belinda Martin MD LAB BLOOD ORDERABLES Final Result [facility] Department [place] [address] * Albumin Creatinine Ratio, Urine (08/08/2024 3:09 PM RUNNING INSTRUCTOR) [facility] Albumin Ur <12.0 mg/L Comment: Interpretive Data No reference range established. Current interpretive data was last revised 2018. Creatinine Ur 117.4 mg/dL [facility] Comment: Interpretive Data No reference range established. Current interpretive data was last revised 2018. Albumin Creatinine Ratio, Ur <10 1 - 29 mg/g [facility] Urine 08/08/2024 3:09 PM RUNNING INSTRUCTOR 08/08/2024 7:27 PM RUNNING INSTRUCTOR Belinda Martin MD LAB URINE ORDERABLES Final Result Performing Organization Address [facility] Co de Phone Number [facility] [place] [address] * Hepatitis panel, acute Blood (08/08/2024 3:09 PM RUNNING INSTRUCTOR) [facility] Hep A IgM Nonreactive Nonreactive Hep B core IgM Nonreactive Nonreactive [facility] Hep C Ab Nonreactive Nonreactive [facility] Comment:Antibodies to HCV no t detected. Does NOT exclude the possibility of recent exposure to HCV. Current interpretive data was last revised on 22 HepBsAg Nonreactive Nonreactive [facility] Blood 08/08/2024 3:09 PM RUNNING INSTRUCTOR 08/08/2024 7:27 PM RUNNING INSTRUCTOR Belinda Martin MD LAB MICROBIOLOGY - GENERAL ORDERABLES Final Result Performing Organization Address [facility] Co de Phone Number [facility] [place] [address] * Hepatitis B core antibody, total Blood (08/08/2024 3:09 PM RUNNING INSTRUCTOR) [facility] Hep B core IgG/IgM Nonreactive Nonreactive Blood 08/08/2024 3:09 PM RUNNING INSTRUCTOR 08/08/2024 7:27 PM RUNNING INSTRUCTOR Belinda Martin MD LAB MICROBIOLOGY - GENERAL ORDERABLES Final Result Performing Organization Address City/[facility] Co de Phone Number [facility] [place] [address] * (ABNORMAL) Hemoglobin A1c (08/08/2024 3:09 PM RUNNING INSTRUCTOR) [facility] Hgb A1C 6.4(H) 4.0 - 5.6 % Estimated Average Glucose 137 mg/dL [facility] Comment: The ADA recommends reporting an estimated Average Glucose (eAG) with all Hemoglobin A1c results using the equation derived from a study of 507 normal and diabetic adults. Minority populations were underrepresented and children were not included. (Diabetes Care 2020; 43(S1): S66-S76). The eAG is not equivalent to a fasting glucose. Blood 08/08/2024 3:09 PM RUNNING INSTRUCTOR 08/08/2024 7:27 PM RUNNING INSTRUCTOR us Belinda Martin MD LAB BLOOD ORDERABLES Final Result [facility] Department [place] [address] * Lipid panel (08/08/2024 3:09 PM RUNNING INSTRUCTOR) Cholesterol 182 30 - 199 mg/dL Comment: Interpretive Data Ages < or = 19 years Acceptable: <170 mg/dL Borderline high: 170-199 mg/dL High: >or= 200 mg/dL Ages > or = 20 years Desirable: <200 mg/dL Borderline high: 200-239 mg/dL High: >or= 240 mg/dL Literature References: 1. Expert Panel on Integrated Guidelines for Cardiovascular Health and Risk Reduction in Children and Adolescents. Pediatrics 2011;128:S213 2. NCEP Expert Panel. Circulation 2004;110:227 Current Interpretive Data was last revised on 2018. Triglycerides 112 <=149 mg/dL [facility] Comment: Interpretive Data Ages < or = 9 years Acceptable: <75 mg/dL Borderline high: 75-99 mg/dL High: >or= 100 mg/dL Ages 10 to 20 years Acceptable: <90 mg/dL Borderline high: 90-129 mg/dL High: >or= 130 mg/dL Ages > or = 20 years Desirable: <150 mg/dL Borderline high: 150-199 mg/dL High: 200-499 mg/dL Very high: >or= 499 mg/dL Literature References: 1. Expert Panel on Integrated Guidelines for Cardiovascular Health and Risk Reduction in Children and Adolescents. Pediatrics 2011;128:S213 2. NCEP Expert Panel. Circulation 2004;110:227 Current Interpretive Data was last revised on 2018. HDL 60 >=40 mg/dL [facility] Comment: Interpretive Data Ages < or = 19 years Acceptable: >45 mg/dL Borderline low: 40-45 mg/dL Low: <40 mg/dL Ages > or = 20 years Desirable: >or= 60 mg/dL Low: <40 mg/dL Literature References: 1. Expert Panel on Integrated Guidelines for Cardiovascular Health and Risk Reduction in Children and Adolescents. Pediatrics 2011;128:S213 2. NCEP Expert Panel. Circulation 2004;110:227 Current Interpretive Data was last revised on 2018. LDL, calculated 102 <=129 mg/dL [facility] Comment: Interpretive Data Ages < or = 19 years Acceptable: <110 mg/dL Borderline high: 110-129 mg/dL High: >or= 130 mg/dL Ages > or = 20 years Optimal: <100 mg/dL Near optimal: 100-129 mg/dL Borderline high: 130-159 mg/dL High: >160 mg/dL Calculated using the Rigoberto LDL-C estimating equation. This equation was implemented on 2024. Prior to this date LDL-C was estimated using the Friedewald equation. Literature References: 1. Expert Panel on Integrated Guidelines for Cardiovascular Health and Risk Reduction in Children and Adolescents. Pediatrics 2011;128:S213 2. NCEP Expert Panel. Circulation 2004;110:227 3. Rigoberto Sexton et al. ANSELMO Cardiol. 2019October 17;5(5):540-548. doi: 10.1001/jamacardio.2020.0013 Current Interpretive Data was last revised on 2024. Non-HDL Cholesterol 122 mg/dL [facility] Comment: Interpretive Data Ages < or = 19 years Acceptable: <120 mg/dL Borderline high: 120-144 mg/dL High: >145 mg/dL Ages > or = 20 years When triglycerides are >200 mg/dL, Non-HDL cholesterol is a secondary target of therapy with treatment goals that are 30 mg/dL greater than the LDL cholesterol target. Literature References: 1. Expert Panel on Integrated Guidelines for Cardiovascular Health and Risk Reduction in Children and Adolescents. Pediatrics 2011;128:S213 2. NCEP Expert Panel. Circulation 2004;110:227 Current Interpretive Data was last revised on 2018. Chol/HDL ratio 3 [facility] Blood 08/08/2024 3:09 PM RUNNING INSTRUCTOR 08/08/2024 7:27 PM RUNNING INSTRUCTOR us Belinda Martin MD LAB BLOOD ORDERABLES Final Result [facility] Department [place] [address] * Comprehensive metabolic panel (08/08/2024 3:09 PM RUNNING INSTRUCTOR) Sodium 141 135 - 145 mmol/L Potassium, pl 4.2 3.3 - 4.9 mmol/L [facility] Chloride 102 97 - 110 mmol/L [facility] CO2 28 22 - 32 mmol/L [facility] Anion gap 11 2 - 15 mmol/L [facility] BUN 13 6 - 25 mg/dL [facility] Creatinine 0.71 0.60 - 1.10 mg/dL [facility] Glucose 102 70 - 199 mg/dL [facility] Comment: Interpretive Data Fasting glucose >/= 126 mg/dl is diagnostic for diabetes. Fasting is defined as no caloric intake for at least 8 hours. Fasting glucose between 100 mg/dl to 125 mg/dl is diagnostic of prediabetes. In a patient with classic symptoms of hyperglycemia or hyperglycemic crisis, a random glucose >/= 200 mg/dl is diagnostic for diabetes. In the absence of unequivocal hyperglycemia, results should be confirmed by repeat testing. The classification and Diagnosis of Diabetes Diabetes Care 2021; 46: S19-S40. Current interpretive data was last revised 2022. Calcium 9.6 8.5 - 10.3 mg/dL [facility] Bilirubin, total 0.2 0.1 - 1.2 mg/dL [facility] Protein, pl 8.1 6.5 - 8.5 g/dL [facility] Albumin 4.5 3.5 - 5.0 g/dL [facility] Alk phos 115 40 - 130 Units/L [facility] ALT 25 7 - 45 Units/L [facility] AST 26 10 - 45 Units/L [facility] Blood 08/08/2024 3:09 PM RUNNING INSTRUCTOR 08/08/2024 7:27 PM RUNNING INSTRUCTOR us Belinda Martin MD LAB BLOOD ORDERABLES Final Result Performing Organization Address [facility] Co de Phone Number [facility] Department [place] [address] * Urinalysis reflex to microscopic (07/25/2024 9:58 AM RUNNING INSTRUCTOR) Color, ur Straw Yellow Clarity, ur Clear Clear [facility] Specific gravity, ur 1.023 1.003 - 1.030 [facility] pH, urine 6.0 [facility] Comment: Interpretive Data U rine pH is affected by diet, medications, systemic acid-base disturbances, and renal tubular function. pH may affect urinary stone formation. For example, urine pH below 6.0 may help reduce the tendency for calcium phosphate stones and pH greater than 6.0 may reduce the tendency for uric acid stone formation. Source: [facility] Current Interpretive Data was last revised on 2017 Protein, ur ql Negative Negative [facility] Glucose, ur ql Negative Negative [facility] Ketones, ur Negative Negative [facility] Bilirubin, ur Negative Negative [facility] Blood, ur Negative Negative [facility] Urobilinogen, ur <2.0 <2.0 mg/dL [facility] Nitrite, ur Negative Negative [facility] Leukocyte esterase, ur Negative Negative [facility] UA reflex comment Reflex conditions for microscopic UA not met. [facility] Urine 07/25/2024 9:58 AM RUNNING INSTRUCTOR 07/25/2024 1:01 PM RUNNING INSTRUCTOR us Meng Burdick MD LAB URINE ORDERABLES Final Result Performing Organization Address City/[facility]/ZIP Co de Phone Number JAMES [facility] [place] [address] * (ABNORMAL) Urine culture Urine, clean voided (07/25/2024 9:58 AM RUNNING INSTRUCTOR) Report Final Report: Less than 100,000 colonies/mL (clinically insignificant growth based on current clinical standards) Includes the following: Less than 100,000 colonies/mL Streptococcus agalactiae (Group B Streptococci) * * * * * * * * * * * * * * * * * * * * Resistance to penicillin in Group B Streptococcus has not been reported. Group B Streptococci are universally susceptible to beta-lactam antibiotics and vancomycin. Routine susceptibility testing is not performed. In penicillin allergic patients, please contact the laboratory at [phone] to request susceptibility testing * * * * * * * * * * * * * * * * * * * * This laboratory routinely screens urine cultures for any amount of Group B Streptococcus in reproductive age women. Recovery of this isolate may be significant in women, however, the recovery of this organism in small quantities in non- women represents contamination with periurethral khoi. (.) Organism (CLINICALLY INSIGNIFICANT GROWTH [facility] Organism STREPTOCOCCUS AGALACTIAE (GROUP B STREPTOCOCCI) [facility] Urine, clean voided 07/25/2024 9:58 AM RUNNING INSTRUCTOR 07/25/2024 2:13 PM RUNNING INSTRUCTOR Narrative [facility] - 07/27/2024 6:24 AM RUNNING INSTRUCTOR Testing performed by [facility] ([phone]) Meng Burdick MD LAB MICROBIOLOGY - GENERAL ORDERABLES Final Result [facility] Department [place] [address] * (ABNORMAL) Differential, auto (07/15/2024 2:25 PM RUNNING INSTRUCTOR) Neutrophil abs 7.1(H) 1.5 - 6.5 K/cumm Comment:Testing performed by : [facility] [facility], [address] [place] [phone] Lymphocyte abs 2.5 0.8 - 3.3 K/cumm [facility] Comment:Testing performed by : [facility] [facility], [address] [place] [phone] Monocyte abs 0.6 0.2 - 0.8 K/cumm [facility] Comment:Testing performed by : [facility] [facility], [address] [place] [phone] Eosinophil abs 0.2 0.0 - 0.5 K/cumm [facility] Comment:Testing performed by : [facility] [facility], [address] [place] [phone] Basophil abs 0.0 0.0 - 0.1 K/cumm [facility] Comment:Testing performed by : [facility] [facility], [address] [place] [phone] Neutrophil pct 68.5 % [facility] Comment: Interpretive Data Percent cell count reference ranges are not reported, since discordance with absolute values may lead to misinterpretation of CBC data. Current Interpretive Data was last revised on 2017. Testing performed by: [facility], [address] [place] [phone] Lymphocyte pct 23.9 % [facility] Comment: Interpretive Data Percent cell count reference ranges are not reported, since discordance with absolute values may lead to misinterpretation of CBC data. Current Interpretive Data was last revised on 2017. Testing performed by: [facility], [address] [place] [phone] Monocyte pct 5.7 % [facility] Comment: Interpretive Data Percent cell count reference ranges are not reported, since discordance with absolute values may lead to misinterpretation of CBC data. Current Interpretive Data was last revised on 2017. Testing performed by: [facility], [address] [place] [phone] Eosinophil pct 1.5 % [facility] Comment: Interpretive Data Percent cell count reference ranges are not reported, since discordance with absolute values may lead to misinterpretation of CBC data. Current Interpretive Data was last revised on 2017. Testing performed by: [facility], [address] [place] [phone] Basophil pct 0.4 % [facility] Comment: Interpretive Data Percent cell count reference ranges are not reported, since discordance with absolute values may lead to misinterpretation of CBC data. Current Interpretive Data was last revised on 2017. Testing performed by: [facility] [facility], [address] [place] [phone] Blood 07/15/2024 2:25 PM RUNNING INSTRUCTOR 07/15/2024 2:42 PM RUNNING INSTRUCTOR Alisha Nair MD LAB BLOOD ORDERABLES Final Resul t Performing Organization Address City/[facility] Co de Phone Number [facility] Department [place] [address] * (ABNORMAL) Iron profile w/ IBC (07/15/2024 2:25 PM RUNNING INSTRUCTOR) Iron 38 35 - 145 mcg/dL TIBC 258 250 - 400 mcg/dL [facility] Transferrin saturation 15(L) 20 - 50 % [facility] Blood 07/15/2024 2:25 PM RUNNING INSTRUCTOR 07/15/2024 2:45 PM RUNNING INSTRUCTOR Alisha Nair MD LAB BLOOD ORDERABLES Final Resul t Performing Organization Address [facility] de Phone Number [facility] [place] [address] * (ABNORMAL) CBC with auto differential (07/15/2024 2:25 PM RUNNING INSTRUCTOR) WBC 10.4(H) 3.8 - 9.9 K/cumm Comment:Testing performed by : [facility] [facility], [address] [place] [phone] Hgb 10.7(L) 11.9 - 15.5 g/dL [facility] Comment:Testing performed by : [facility] [facility], [address] [place] [phone] Hct 33.2(L) 35.6 - 45.5 % [facility] Comment:Testing performed by : [facility] [facility], [address] [place] [address] [id number] Plt 381 150 - 400 K/cumm [facility] Comment:Testing performed by : [facility], [address] [place], [place] [id number] MPV 8.9 6.8 - 10.4 fL [facility] Comment:Testing performed by : [facility], [address] [place], [place] [id number] RBC 4.28 3.90 - 5.20 M/cumm [facility] Comment:Testing performed by : [facility], [address] [place], [place] [id number] MCV 77.7(L) 81.3 - 96.4 fL [facility] Comment:Testing performed by : [facility], [address] [place], [place] [id number] MCH 25.0(L) 27.1 - 33.3 pg [facility] Comment:Testing performed by : [facility], [address] [place], [place] [id number] MCHC 32.1(L) 32.3 - 35.7 g/dL [facility] Comment:Testing performed by : [facility], [address] [place] [address] RDW CV 16.1(H) 11.1 - 14.9 % [facility] Comment:Testing performed by : [facility], [address] [place] [address] NRBC abs 0.00 0.00 - 0.01 K/cumm [facility] Comment:Testing performed by : [facility], [address] [place] [address] Blood 07/15/2024 2:25 PM RUNNING INSTRUCTOR 07/15/2024 2:42 PM RUNNING INSTRUCTOR us Alisha Nair MD LAB BLOOD ORDERABLES Final Resul t [facility] Department [place] [address] * Reticulocyte Count (07/15/2024 2:25 PM RUNNING INSTRUCTOR) Retics, absolute 0.069 0.020 - 0.100 M/cumm Comment:Testing performed by : [facility], [address] [place] [id number] Retics 1.6 0.5 - 1.8 % [facility] Comment:Testing performed by : [facility], [address] [place] [phone] Blood 07/15/2024 2:25 PM RUNNING INSTRUCTOR 07/15/2024 2:42 PM RUNNING INSTRUCTOR Alisha Nair MD LAB BLOOD ORDERABLES Final Resul t [facility] Department [place] [address] * (ABNORMAL) Ferritin (07/15/2024 2:25 PM RUNNING INSTRUCTOR) Ferritin 316(H) 13 - 150 ng/mL Blood 07/15/2024 2:25 PM RUNNING INSTRUCTOR 07/15/2024 2:45 PM RUNNING INSTRUCTOR Alisha Nair MD LAB BLOOD ORDERABLES Final Resul t Performing Organization Address City/[facility] Co de Phone Number [facility] Department [place] [address] from Last 3 Months Insurance [facility] [employer] Address: [facility] [id number] JAROD Cuellar [id number] [employer] Address: [address] [place] [address] [employer] Address: [address] [place] [address] Care Teams Software Client Architect Relationship Specialty Start Date End Date Belinda Martin MD [address] [place] [address] DR Arminda CHRISTIANSON [address] [place] [id number] PCP - General Internal Medicine 08/08/24 Yovanny Lamar MD Medical Oncologist/Fructose Loader Hematology and Oncology 11/09/22
--- OUTSIDE RECORDS SUMMARY | 2024-10-09 16:43 | XMS_ITS | Encounter Summary ---
Author Organization [facility] Healthcare Address [address] [place] [address] Care Team Providers Care Health And Safety Manager Name Role Phone Yovanny Lamar MD Unavailable Belinda Martin MD Primary Care Provider [phone] Encounter Details Date Type Department Care Team (Late st Contact Info) Description 08/12/2024 Results Follow-Up [facility] Medical Group at the [address] [place] [address] Belinda Martin MD [address] [place] [address] [address] [place] [address] Social History Tobacco Use Types [...] points, staff should administer the PHQ-9) 0 08/08/2024 Comments No Sex and Gender Information Value Date Recorded Sex Assigned at Not on file Legal Sex Female 9:48 PM SUPERVISOR GRAPHITE Gender Identity Not on file Sexual Orientation Not on file documented as of this encounter Miscellaneous Notes * Result Encounter Note - Belinda Martin MD - 08/12/2024 4:50 PM SUPERVISOR GRAPHITE Sara, your diabetes is well controlled. Continue to follow up with your asbestos shingle roofer regarding your anemia and elevated white blood cells. All other labs are normal! RVISOR GRAPHITE documented in this encounter Plan of Treatment Not on file documented as of this encounter Visit Diagnoses Not on filedocumented in this encounter Care Teams Health And Safety Manager Relationship Specialty Start Date End Date Belinda Martin MD [address] [place] [address] DR Arminda CHRISTIANSON [address] [place] [address] PCP - General Internal Medicine 08/08/24 Yovanny Lamar MD Medical Oncologist/Engineering Supplies Sales Hematology and Oncology 11/09/22 documented as of this encounter
--- OUTSIDE RECORDS SUMMARY | 2024-10-09 16:43 | XMS_ITS | Encounter Summary ---
Author Organization [facility] Healthcare Address [address] [place] [address] Care Team Providers Care Podiatrist Orthopedic Name Role Phone Yovanny Lamar MD Unavailable [phone] Belinda Martin MD Primary Care Provider [phone] Encounter Details Date Type Department Care Team (Late st Contact Info) Description 09/14/2024 Results Follow-Up [facility] Medical Group at the [address] [place] [address] Belinda Martin MD [address] [place] [address] [address] [place] [address] Social History Tobacco Use Types [...] on file Legal Sex Female 9:48 PM RE RECORDING 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
--- OUTSIDE RECORDS SUMMARY | 2024-10-09 16:44 | XMS_ITS | CONTINUITY OF CARE DOCUMENT ---
Author Name pepe cantu Address Unknown Organization [facility] Address [address] [facility] [address] [place] [address] Phone [phone] Care Team Providers Care Comsec Manager Name Role Phone Rojas COVARRUBIAS, Bryon Unavailable [phone] VERN AVENDANO MD Unavailable [phone] VERN AVENDANO MD Unavailable [phone] INSURANCE PROVIDERS Payer name Policy type / Coverage type [place] red democrat [place] [employer] MEDICAID Medicaid [id number]
--- OUTSIDE RECORDS SUMMARY | 2024-10-09 16:44 | XMS_ITS | Clinical Summary ---
Author Organization [facility] Address [address] [place] [address] Care Team Providers Care Placement Specialist Name Role Phone Yovanny Lamar MD Unavailable [phone] Belinda Martin MD Primary Care Provider Allergies Active Allergy Reactions Criticality Noted Date [...] Monday// Monday 42.5 g 5 07/25/19 25 025 Active amLODIPine (NORVASC) 5 mg tablet Take [...] 08/08/2024 Assessment & Plan (08/08/2024 3:01 PM TOOTH CLERK): Chronic, poorly controlled in setting of being [...] weekly Assessment & Plan (08/08/2024 3:00 PM TOOTH CLERK): Chronic, poorly controlled in setting of running out of medications, we will refill Mounjaro at starting dose 2.5 mg weekly 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 Reports no peripheral vision changes. NO obscuration of BV at disc with normal RNFL. Monitor in 2-3mo after updating specs Hyperopia of both eyes 05/29/2024 Assessment & Plan (05/30/2024 8:24 AM TOOTH CLERK): Symptoms consistent with mild hyperopia and presbyopia. [...] (05/18/2020): Added automatically from request for surgery [id number] Assessment & Plan (09/26/2024 1:36 PM CDT): Chronic, stable BMI Follow-up includes: nutrition counseling, exercise counseling, and education provided. Assessment & Plan (08/08/2024 3:00 PM TOOTH CLERK): Chronic, poorly controlled BMI Follow-up includes: nutrition counseling, exercise counseling, and education provided. Morbid obesity 05/07/2020 Electrocardiogram abnormal 04/08/2020 Essential hypertension 04/08/2020 Obesity 04/08/2020 Chest pain 02/21/2020 Polyarthralgia 02/06/2020 Postinflammatory hyperpigmentation 03/21/2017 Psoriasis 03/21/2017 Drug indicated 09/04/2012 Overview (09/22/2016): High risk medication use Resolved Problems Problem Noted Date Diagnosed Date Resolved Date Pelvic and perineal pain 07/25/202411/2024 No diagnosis on [place] 11/20/202007/25 Rheumatoid arthritis 09/04/2012 025 Overview (09/23/2016): Rheumatoid arthritis Encounters Date Type Department Care Team Description 09/27/2024 Results Follow-Up [facility] at the [address] [place] [address] Belinda Martin MD 09/26/2024 1:07 PM CDT - 09/26/2024 11:59 PM CDT Hospital Encounter [facility] [address] [place] [address] Discharge Disposition: Discharge to home or self care 09/26/2024 1:00 PM CDT Office Visit [facility] at the [address] [phone] Belinda Martin MD Health care maintenance (Primary Dx); Anemia, unspecified type; Fatigue, unspecified type; Vitamin D deficiency; Preventative health care; Acute intractable headache, unspecified headache type; Type 2 diabetes mellitus without complication, without long-term current use of insulin (HCC); Morbid obesity due to excess calories (HCC) 09/26/2024 Orders Only [facility] at the [address] [phone] Belinda Martin MD Preventative health care; Vitamin D deficiency; Acute intractable headache, unspecified headache type; Fatigue, unspecified type; Anemia, unspecified type; Health care maintenance 09/26/2024 Nurse Triage [facility] Medical [facility] at the [address] [phone] Belinda Martin MD 09/14/2024 Results Follow-Up [facility] at the [address] [phone] Belinda Martin MD 09/09/2024 9:05 AM CDT - 09/09/2024 11:59 PM CDT Hospital Encounter [facility] ([facility]) [address] [place] [phone] Encounter for screening mammogram for breast cancer Discharge Disposition: Discharge to home or self care 08/13/2024 Telephone [facility] at the [address] [phone] Belinda Martin MD Medical Records Request 08/12/2024 Results Follow-Up [facility] at the [address] [phone] Belinda Martin MD 08/08/2024 3:11 PM TOOTH CLERK - 08/08/2024 11:59 PM TOOTH CLERK Hospital Encounter [address] [address] Discharge Disposition: Discharge to home or self care 08/08/2024 2:30 PM TOOTH CLERK Office Visit [facility] at the [address] [phone] Belinda Martin MD Abnormal glucose (Primary Dx); Healthcare maintenance; Health care maintenance; Need for hepatitis B screening test; Psoriatic arthritis (HCC); Encounter for screening mammogram for breast cancer; Type 2 diabetes mellitus with hyperlipidemia (HCC); Type 2 diabetes mellitus without complication, without long-term current use of insulin (HCC); Morbid obesity due to excess calories (HCC); Hypertension associated with diabetes (HCC) 08/08/2024 Orders Only [facility] at the [address] [phone] Belinda Martin MD Type 2 diabetes mellitus with hyperlipidemia (HCC); Need for hepatitis B screening test; Psoriatic arthritis (HCC); Health care maintenance; Healthcare maintenance; Abnormal glucose 08/01/[address] [facility] [address] [place] [address] Trae Mcmahon OD r/s 07/25/2024 11:46 AM TOOTH CLERK - 07/25/2024 11:59 PM TOOTH CLERK Hospital Encounter [address] [address] Mixed incontinence Discharge Disposition: Discharge to home or self care 07/25/2024 9:00 AM TOOTH CLERK Office Visit [facility] [address] 7[address] [place] [phone] Meng Burdick MD Pelvic pain in female [...] Anomalous optic nerve (HCC) 07/15/2024 2:15 PM TOOTH CLERK Lab [facility] - Lab Collection [address] [facility] [address] [place] [address] Iron deficiency anemia due to chronic blood loss 07/15/2024 2:00 PM TOOTH CLERK Lab [facility] [address] [facility] [address] [place] [address] from Last 3 Months Immunizations Immunization Administration Dates Next Due DTP 06/15/1990, 7,02/13/1985,12/11,1984 Hep B, Adolescent or Pediatric 04/05/2000,1999,05/11/1999 Influenza, Trivalent, Preser vative Free, Intramuscular 04/30/2024 MMR 02/23/1993,09/09/1985 OPV 06/15/1990, 7,09/23/1986,02/13,1984,1984 Td, adsorbed 05/11/1999 Surgical History Surgery Date Site/Laterality Comments LAPAROSCOPIC OVARIAN CYSTECTOMY 06/19/2021 - 06/18/2022 COLPOSCOPY 06/19/2022 - 06/18/2023 Thinks she has had normal Pap since LAPAROSCOPIC TUBAL LIGATION 06/19/2006 - 06/18/2007 COLONOSCOPY 06/19/2023 - 06/18/2024 LAPAROSCOPIC TOTAL HYSTERECTOMY 01/18/2024 - 02/17/2024 [place] BREAST CYST EXCISION 06/19/2021 - 06/18/2022 Right Medical History Medical History Date Comments Vitamin D deficiency Breast abscess Diabetes mellitus (HCC) was on M unjaro till early June Iron deficiency anemia Psoriatic arthritis (HCC) Psoriasis GERD (gastroesophageal reflux disease) Family History Medical History Relation Name Comments Diabetes Father Cancer Other 1 Family history of Cancer; Diabetes Other 2 Family history of Diabetes mellitus; Relation Name Status Comments Father Other 1 Other 2 Social History Tobacco Use Types Packs/Day Years [...] on file Legal Sex Female 9:48 PM TOOTH CLERK Gender Identity Not on file Sexual Orientation Not on file Obstetrics History Para Term AB IAB SAB Ectopic Multiple Livin g Live Births 3 3 3 3 3 Date Outcome GA Total Labor Labor/2nd/3rd Weight Sex Type Anes PTL Keyanna A1 A5 Name Clin 2001 Term M Vag-S pont Living 2001 Term F Vag-S pont Living 2006 Term F Vag-S pont Living Last Filed Vital Signs Vital Sign Reading Time Taken Comments Blood Pressure 122/60 09/26/2024 12:39 PM CDT Pulse 87 09/26/2024 12:39 PM CDT Temperature 36.7 C (98 F) 05/07/2024 3:37 PM TOOTH CLERK Respiratory Rate 20 09/26/2024 12:3 9 PM CDT Oxygen Saturation 99% 09/26/2024 12: 39 PM CDT Inhaled Oxygen Concentration - - Weight 137.6 kg (303 lb 6.4 oz) 025 12:39 PM CDT Height 162 cm (5' 3.78 ) 09/26/2024 12: 39 PM CDT Body Mass Index 52.44 09/26/2024 12:39 PM CDT Plan of Treatment Health Maintenance Due Date Last Done Comments Foot Exam 1984 Varicella Vaccines (1 of 2 - 13+ 2-dose series) 1997 DTaP/Tdap/Td Vaccine (6 - Tdap) 05/12/1999 05/11/1999, 06/15/1990, 09/23/1986, Additional history exists Regular Well Visit/Exam 18-64 2002 Pneumococcal vaccine <65 (1 of 2 - PCV) 2003 Covid-19 Vaccine (3 - season) 2024 09/30/2020, 08/29/2020 Hemoglobin A1C 02/05/2025 08/08/2024 Dilated Eye Exam 05/29/2025 05/29/2024 Albumin Creatinine Ratio, Urine 08/08/2025 08/08/2024 Lipid Panel 08/08/2025 08/08/2024, 08/10/2023 Breast Cancer Screening-Mammogram 09/09/2025 09/09/2024, 09/29/2022 Depression Screening 09/26/2025 09/26/2024, 08/08/19 25 eGFR 09/26/2025 09/26/2024, 07/21, 06/21/2024, Additional history exists Hepatitis B Screening Completed 04/05/2000 , 10/25/1999, 05/11/1999 Influenza Vaccine Completed 04/30/2024 Hepatitis C Screening Completed 08/08/2024 , 06/21/2024, 08/10/2023 HPV Vaccines Aged Out No longer eligi ble based on patient's age to complete this topic Procedures Procedure Name Priority Date/Time Associated Diagnosis [...] breast cancer EGFR Routine 08/08/2024 3:09 PM TOOTH CLERK Psoriatic arthritis (HCC) DIFFERENTIAL AUTO Routine 08/08/2024 3:0 9 PM TOOTH CLERK Health care maintenance HEMOGLOBIN A1C Routine 08/08/2024 3:09 PM TOOTH CLERK Abnormal glucose LIPID PANEL Routine 08/08/2024 3:09 PM TOOTH CLERK Healthcare maintenance COMPREHENSIVE METABOLIC PANEL Routine 08/08/2024 3:09 PM TOOTH CLERK Psoriatic arthritis (HCC) CBC WITH AUTO DIFFERENTIAL Routine 08/08/2024 3:09 PM TOOTH CLERK Health care maintenance ALBUMIN CREATININE RATIO, URINE Routine 08/08/2024 3:09 PM TOOTH CLERK Type 2 diabetes mellitus with hyperlipidemia (HCC) T-SPOT.TB Routine 08/08/2024 3:09 PM TOOTH CLERK Psoriatic arthritis (HCC) HEPATITIS PANEL, ACUTE Routine 08/08/2024 3:09 PM TOOTH CLERK Psoriatic arthritis (HCC) HEPATITIS B CORE ANTIBODY, TOTAL Routine 08/08/2024 3:09 PM TOOTH CLERK Need for hepatitis B screening test URINALYSIS AND REFLEX TO MICROSCOPIC Routine 07/25/2024 9:58 AM TOOTH CLERK Mixed incontinence URINE CULTURE Routine 07/25/2024 9:58 AM TOOTH CLERK Mixed incontinence DIFFERENTIAL AUTO Routine 07/15/2024 2:2 5 PM TOOTH CLERK Iron deficiency anemia due to chronic blood loss CBC WITH AUTO DIFFERENTIAL Routine 07/15/2024 2:25 PM TOOTH CLERK Iron deficiency anemia due to chronic blood loss FERRITIN Routine 07/15/2024 2:25 PM TOOTH CLERK Iron deficiency anemia due to chronic blood loss RETICULOCYTES Routine 07/15/2024 2:25 PM TOOTH CLERK Iron deficiency anemia due to chronic blood loss IRON PROFILE W/ IBC Routine 07/15/2024 2 :25 PM TOOTH CLERK Iron deficiency anemia due to chronic blood [...] Martin MD LAB BLOOD ORDERABLES Final Result [facility] Department [place] [address] * Differential, auto (09/26/2024 1:07 PM CDT) Neutrophil abs 6.19 1.50 - 6.50 K/cumm Imm gran abs 0.04 0.00 - 0.10 K/cumm [facility] Lymphocyte abs 2.36 0.80 - 3.30 K/cumm [facility] Monocyte abs 0.47 0.20 - 0.80 K/cumm [facility] Eosinophil abs 0.08 0.00 - 0.50 K/cumm [facility] Basophil abs 0.03 0.00 - 0.10 K/cumm [facility] Neutrophil pct 67.6 % [facility] Comment: Interpretive Data Percent cell count reference ranges are not reported, since discordance with absolute values may lead to misinterpretation of CBC data. Current Interpretive Data was last revised on 2017. Imm gran pct 0.4 % [facility] Comment: Interpretive Data Percent cell count reference ranges are not reported, since discordance with absolute values may lead to misinterpretation of CBC data. Current Interpretive Data was last revised on 2017. Lymphocyte pct 25.7 % [facility] Comment: Interpretive Data Percent cell count reference ranges are not reported, since discordance with absolute values may lead to misinterpretation of CBC data. Current Interpretive Data was last revised on 2017. Monocyte pct 5.1 % [facility] Comment: Interpretive Data Percent cell count reference ranges are not reported, since discordance with absolute values may lead to misinterpretation of CBC data. Current Interpretive Data was last revised on 2017. Eosinophil pct 0.9 % [facility] Comment: Interpretive Data Percent cell count reference ranges are not reported, since discordance with absolute values may lead to misinterpretation of CBC data. Current Interpretive Data was last revised on 2017. Basophil pct 0.3 % [facility] Comment: Interpretive Data Percent cell count reference ranges are not reported, since discordance with absolute values may lead to misinterpretation of CBC data. Current Interpretive Data was last revised on 2017. Blood 09/26/2024 1:07 PM CDT 09/26/2024 6:01 PM CDT Belinda Martin MD LAB BLOOD ORDERABLES Final Result Performing Organization Address City/[facility]/ZIP Co de Phone Number [facility] [place] [address] * (ABNORMAL) Iron profile w/ IBC (09/26/2024 1:07 PM CDT) [facility] Iron 42 35 - 145 mcg/dL TIBC 270 250 - 400 mcg/dL [facility] Transferrin saturation 16(L) 20 - 50 % [facility] Blood 09/26/2024 1:07 PM CDT 09/26/2024 6:01 PM CDT Belinda Martin MD LAB BLOOD ORDERABLES Final Result Performing Organization Address [facility] de Phone Number [facility] [place] [address] * (ABNORMAL) CBC with auto differential (09/26/2024 1:07 PM CDT) [facility] WBC 9.17 3.80 - 9.90 K/cumm Hgb 11.2(L) 11.9 - 15.5 g/dL [facility] Hct 35.7 35.6 - 45.5 % [facility] Plt 426(H) 150 - 400 K/cumm [facility] MPV 10.7 9.1 - 12.3 fL [facility] RBC 4.33 3.90 - 5.20 M/cumm [facility] MCV 82.4 81.3 - 96.4 fL [facility] MCH 25.9(L) 27.1 - 33.3 pg [facility] MCHC 31.4(L) 32.3 - 35.7 g/dL [facility] RDW CV 14.3 11.1 - 14.9 % [facility] RDW SD 42.7 35.7 - 48.1 fL [facility] NRBC abs 0.00 0.00 - 0.01 K/cumm [facility] Blood 09/26/2024 1:07 PM CDT 09/26/2024 6:01 PM CDT Belinda Martin MD LAB BLOOD ORDERABLES Final Result Performing Organization Address City/[facility]/ZIP Co de Phone Number [facility] [place] [address] * (ABNORMAL) Vitamin D 25 hydroxy (09/26/2024 1:07 PM CDT) Vitamin D 25-OH 27(L) 30 - 80 ng/mL Blood 09/26/2024 1:07 PM CDT 09/26/2024 6:01 PM CDT Belinda Martin MD LAB BLOOD ORDERABLES Final Result Performing Organization Address [facility] Co de Phone Number [facility] [place] [address] * TSH (09/26/2024 1:07 PM CDT) Thyroid Stimulating Hormone 0.76 0.30 - 4.20 mcIUnit/mL Blood 09/26/2024 1:07 PM CDT 09/26/2024 6:01 PM CDT Belinda Martin MD LAB BLOOD ORDERABLES Final Result Performing Organization Address City/[facility]/ZIP Co de Phone Number [facility] [place] [address] * T4, free (09/26/2024 1:07 PM CDT) [facility] Free T4 1.19 0.90 - 1.70 ng/dL Blood 09/26/2024 1:07 PM CDT 09/26/2024 6:01 PM CDT Belinda Martin MD LAB BLOOD ORDERABLES Final Result Performing Organization Address City/[facility] Co de Phone Number [facility] [place] [address] * (ABNORMAL) Ferritin (09/26/2024 1:07 PM CDT) [facility] Ferritin 264(H) 13 - 150 ng/mL Blood 09/26/2024 1:07 PM CDT 09/26/2024 6:01 PM CDT Belinda Martin MD LAB BLOOD ORDERABLES Final Result Performing Organization Address [facility] Co de Phone Number [facility] [place] [address] * Vitamin B12 (09/26/2024 1:07 PM CDT) [facility] Vitamin B12 483 230 - 1,250 pg/mL Blood 09/26/2024 1:07 PM CDT 09/26/2024 6:01 PM CDT Belinda Martin MD LAB BLOOD ORDERABLES Final Result Performing Organization Address City/[facility] Co de Phone Number [facility] [place] [address] * Comprehensive metabolic panel (09/26/2024 1:07 PM CDT) [facility] Sodium 141 135 - 145 mmol/L Potassium, pl 3.8 3.3 - 4.9 mmol/L [facility] Chloride 102 97 - 110 mmol/L [facility] CO2 27 22 - 32 mmol/L [facility] Anion gap 12 2 - 15 mmol/L [facility] BUN 14 6 - 25 mg/dL [facility] Creatinine 0.66 0.60 - 1.10 mg/dL [facility] Glucose 94 70 - 199 mg/dL [facility] Comment: Interpretive Data Fasting glucose >/= [...] classification and Diagnosis of Diabetes Diabetes Care 202; 46: S19-S40. Current interpretive data was last revised 2022. Calcium 9.9 8.5 - 10.3 mg/dL [facility] Bilirubin, total 0.2 0.1 - 1.2 mg/dL [facility] Protein, pl 8.0 6.5 - 8.5 g/dL [facility] Albumin 4.0 3.5 - 5.0 g/dL [facility] Alk phos 108 40 - 130 Units/L [facility] ALT 20 7 - 45 Units/L [facility] AST 18 10 - 45 Units/L [facility] Blood 09/26/2024 1:07 PM CDT 09/26/2024 6:01 PM CDT us Belinda Martin MD LAB BLOOD ORDERABLES Final Result [facility] [place] [address] * Screening Mammogram Bilateral W Lukasz (09/09/2024 9:21 AM CDT) Anatomical Region Laterality Modality Breast Bilateral Mammography Narrative 09/10/2024 11:50 AM CDT Mammogram Technique: Bilateral Digital Breast Tomosynthesis, Bilateral C-view 2D Screening mammogram. Views obtained: bilateral craniocaudal and bilateral mediolateral oblique. Computer Aided Detection was performed. Mammogram Findings: The present examination has been compared to prior imaging studies performed at [facility] on 09/29/2022, and at [facility] on 08/09/2021. The breasts are almost entirely [...] compared to prior imaging studies performed at [facility] on 09/29/2022, and at [facility] on 08/09/2021. The breasts are almost entirely fatty. There is no suspicious abnormality in either breast. Impression: There is no mammographic evidence of malignancy. Annual screening mammography is recommended. OVERALL FINAL ASSESSMENT: BI-RADS CATEGORY 1: Negative. Bleinda Martin MD IMG MAMMO PROCEDURES Final Result * T-SPOT.TB Blood (08/08/2024 3:09 PM TOOTH CLERK) T-SPOT.TB Negative SeeBelow Comment: Normal Value: Negative [...] test. T-SPOT.TB Panel A Spot Count 0 [facility] T-SPOT.TB Panel B Spot Count 0 [facility] T-SPOT.TB Negative Control Passed [facility] T-SPOT.TB Positive Control Passed [facility] Comment: Test Performed at: [facility] [address] [address] SURI STEELE,PHD Blood 08/08/2024 3:09 PM TOOTH CLERK 08/08/2024 7:53 PM TOOTH CLERK us Belinda Martin MD LAB MICROBIOLOGY - GENERAL ORDERABLES Final Result [facility] Department [place] [address] * eGFR (08/08/2024 3:09 PM TOOTH CLERK) eGFR >90 >=60 mL/min/1. 73 m2 Comment: [...] last reviewed 2021. Blood 08/08/2024 3:09 PM TOOTH CLERK 08/08/2024 7:49 PM TOOTH CLERK us Belinda Martin MD LAB BLOOD ORDERABLES Final Result [facility] Department [place] [address] * (ABNORMAL) Differential, auto (08/08/2024 3:09 PM TOOTH CLERK) Neutrophil abs 7.8(H) 1.5 - 6.5 K/cumm Imm gran abs 0.1 0.0 - 0.1 K/cumm [facility] Lymphocyte abs 2.5 0.8 - 3.3 K/cumm [facility] Monocyte abs 0.5 0.2 - 0.8 K/cumm [facility] Eosinophil abs 0.2 0.0 - 0.5 K/cumm [facility] Basophil abs 0.0 0.0 - 0.1 K/cumm [facility] Neutrophil pct 70.1 % [facility] Comment: Interpretive Data Percent cell count reference ranges are not reported, since discordance with absolute values may lead to misinterpretation of CBC data. Current Interpretive Data was last revised on 2017. Imm gran pct 0.5 % [facility] Comment: Interpretive Data Percent cell count reference ranges are not reported, since discordance with absolute values may lead to misinterpretation of CBC data. Current Interpretive Data was last revised on 2017. Lymphocyte pct 22.8 % [facility] Comment: Interpretive Data Percent cell count reference ranges are not reported, since discordance with absolute values may lead to misinterpretation of CBC data. Current Interpretive Data was last revised on 2017. Monocyte pct 4.8 % [facility] Comment: Interpretive Data Percent cell count reference ranges are not reported, since discordance with absolute values may lead to misinterpretation of CBC data. Current Interpretive Data was last revised on 2017. Eosinophil pct 1.5 % [facility] Comment: Interpretive Data Percent cell count reference ranges are not reported, since discordance with absolute values may lead to misinterpretation of CBC data. Current Interpretive Data was last revised on 2017. Basophil pct 0.3 % [facility] Comment: Interpretive Data Percent cell count reference ranges are not reported, since discordance with absolute values may lead to misinterpretation of CBC data. Current Interpretive Data was last revised on 2017. Blood 08/08/2024 3:09 PM TOOTH CLERK 08/08/2024 7:27 PM TOOTH CLERK Belinda Martin MD LAB BLOOD ORDERABLES Final Result Performing Organization Address City/[facility] Co de Phone Number [facility] Department [place] [address] * (ABNORMAL) CBC with auto differential (08/08/2024 3:09 PM TOOTH CLERK) WBC 11.1(H) 3.8 - 9.9 K/cumm Hgb 11.1(L) 11.9 - 15.5 g/dL [facility] Hct 35.6 35.6 - 45.5 % [facility] Plt 415(H) 150 - 400 K/cumm [facility] MPV 11.0 9.1 - 12.3 fL [facility] RBC 4.39 3.90 - 5.20 M/cumm [facility] MCV 81.1(L) 81.3 - 96.4 fL [facility] MCH 25.3(L) 27.1 - 33.3 pg [facility] MCHC 31.2(L) 32.3 - 35.7 g/dL [facility] RDW CV 15.0(H) 11.1 - 14.9 % [facility] RDW SD 44.2 35.7 - 48.1 fL [facility] NRBC abs 0.00 0.00 - 0.01 K/cumm [facility] Blood 08/08/2024 3:09 PM TOOTH CLERK 08/08/2024 7:27 PM TOOTH CLERK Belinda Martin MD LAB BLOOD ORDERABLES Final Result Performing Organization Address City/[facility]/ZIP Co de Phone Number [facility] Department [place] [address] * Albumin Creatinine Ratio, Urine (08/08/2024 3:09 PM TOOTH CLERK) [facility] Albumin Ur <12.0 mg/L Comment: Interpretive Data No reference range established. Current interpretive data was last revised 2018. Creatinine Ur 117.4 mg/dL [facility] Comment: Interpretive Data No reference range established. Current interpretive data was last revised 2018. Albumin Creatinine Ratio, Ur <10 1 - 29 mg/g [facility] Urine 08/08/2024 3:09 PM TOOTH CLERK 08/08/2024 7:27 PM TOOTH CLERK Belinda Martin MD LAB URINE ORDERABLES Final Result Performing Organization Address City/[facility] Co de Phone Number [place] [facility] Department [place] [address] * Hepatitis panel, acute Blood (08/08/2024 3:09 PM TOOTH CLERK) [facility] Hep A IgM Nonreactive Nonreactive Hep B core IgM Nonreactive Nonreactive [facility] Hep C Ab Nonreactive Nonreactive [facility] Comment:Antibodies to HCV no t detected. Does NOT exclude the possibility of recent exposure to HCV. Current interpretive data was last revised on 22 HepBsAg Nonreactive Nonreactive [facility] Blood 08/08/2024 3:09 PM TOOTH CLERK 08/08/2024 7:27 PM TOOTH CLERK Belinda Martin MD LAB MICROBIOLOGY - GENERAL ORDERABLES Final Result Performing Organization Address City/[facility]/ZIP Co de Phone Number [facility] Department [place] [address] * Hepatitis B core antibody, total Blood (08/08/2024 3:09 PM TOOTH CLERK) [facility] Hep B core IgG/IgM Nonreactive Nonreactive Blood 08/08/2024 3:09 PM TOOTH CLERK 08/08/2024 7:27 PM TOOTH CLERK Belinda Martin MD LAB MICROBIOLOGY - GENERAL ORDERABLES Final Result Performing Organization Address [facility] de Phone Number [facility] [place] [address] * (ABNORMAL) Hemoglobin A1c (08/08/2024 3:09 PM TOOTH CLERK) Hgb A1C 6.4(H) 4.0 - 5.6 % Estimated Average Glucose 137 mg/dL [facility] Comment: The ADA recommends reporting an estimated Average Glucose (eAG) with all Hemoglobin A1c results using the equation derived from a study of 507 normal and diabetic adults. Minority populations were underrepresented and children were not included. (Diabetes Care 2020; 43(S1): S66-S76). The eAG is not equivalent to a fasting glucose. Blood 08/08/2024 3:09 PM TOOTH CLERK 08/08/2024 7:27 PM TOOTH CLERK Belinda Martin MD LAB BLOOD ORDERABLES Final Result Performing Organization Address [facility] de Phone Number [facility] [place] [address] * Lipid panel (08/08/2024 3:09 PM TOOTH CLERK) Cholesterol 182 30 - 199 mg/dL Comment: [...] revised on 2018. Triglycerides 112 <=149 mg/dL [facility] Comment: Interpretive Data Ages < or [...] revised on 2018. HDL 60 >=40 mg/dL [facility] Comment: Interpretive Data Ages < or [...] on 2018. LDL, calculated 102 <=129 mg/dL [facility] Comment: Interpretive Data Ages < or [...] NCEP Expert Panel. Circulation 2004;110:227 3. Rigoberto Trevino al. ANSELMO Cardiol. 2020 October 17;5(5):540-548. doi: 10.1001/jamacardio.2020.0013 Current Interpretive Data was last revised on 2024. Non-HDL Cholesterol 122 mg/dL [facility] Comment: Interpretive Data Ages < or [...] last revised on 2018. Chol/HDL ratio 3 [facility] Blood 08/08/2024 3:09 PM TOOTH CLERK 08/08/2024 7:27 PM TOOTH CLERK us Belinda Martin MD LAB BLOOD ORDERABLES Final Result [facility] Department [place] [address] * Comprehensive metabolic panel (08/08/2024 3:09 PM TOOTH CLERK) Pathologist [facility] Sodium 141 135 - 145 mmol/L Potassium, pl 4.2 3.3 - 4.9 mmol/L [facility] Chloride 102 97 - 110 mmol/L [facility] CO2 28 22 - 32 mmol/L [facility] Anion gap 11 2 - 15 mmol/L [facility] BUN 13 6 - 25 mg/dL [facility] Creatinine 0.71 0.60 - 1.10 mg/dL [facility] Glucose 102 70 - 199 mg/dL [facility] Comment: Interpretive Data Fasting glucose >/= [...] 2022. Calcium 9.6 8.5 - 10.3 mg/dL [facility] Bilirubin, total 0.2 0.1 - 1.2 mg/dL [facility] Protein, pl 8.1 6.5 - 8.5 g/dL [facility] Albumin 4.5 3.5 - 5.0 g/dL [facility] Alk phos 115 40 - 130 Units/L [facility] ALT 25 7 - 45 Units/L [facility] AST 26 10 - 45 Units/L [facility] Blood 08/08/2024 3:09 PM TOOTH CLERK 08/08/2024 7:27 PM TOOTH CLERK us Belinda Martin MD LAB BLOOD ORDERABLES Final Result [facility] Department [place] [address] * Urinalysis reflex to microscopic (07/25/2024 9:58 AM TOOTH CLERK) Color, ur Straw Yellow Clarity, ur Clear Clear [facility] Specific gravity, ur 1.023 1.003 - 1.030 [facility] pH, urine 6.0 [facility] Comment: Interpretive Data U rine pH is affected by diet, medications, systemic acid-base disturbances, and renal tubular function. pH may affect urinary stone formation. For example, urine pH below 6.0 may help reduce the tendency for calcium phosphate stones and pH greater than 6.0 may reduce the tendency for uric acid stone formation. Source: [facility] Current Interpretive Data was last revised on 2017 Protein, ur ql Negative Negative [facility] Glucose, ur ql Negative Negative [facility] Ketones, ur Negative Negative [facility] Bilirubin, ur Negative Negative [facility] Blood, ur Negative Negative [facility] Urobilinogen, ur <2.0 <2.0 mg/dL [facility] Nitrite, ur Negative Negative [facility] Leukocyte esterase, ur Negative Negative [facility] UA reflex comment Reflex conditions for microscopic UA not met. [facility] Urine 07/25/2024 9:58 AM TOOTH CLERK 07/25/2024 1:01 PM TOOTH CLERK us Meng Burdick MD LAB URINE ORDERABLES Final Result Performing Organization Address City/[facility]/ZIP Co de Phone Number [facility] Department [place] [address] * (ABNORMAL) Urine culture Urine, clean voided (07/25/2024 9:58 AM TOOTH CLERK) Report Final Report: Less than 100,000 colonies/mL [...] allergic patients, please contact the laboratory at [phone] to request susceptibility testing * * * [...] periurethral khoi. (.) Organism (CLINICALLY INSIGNIFICANT GROWTH [facility] Organism STREPTOCOCCUS AGALACTIAE (GROUP B STREPTOCOCCI) [facility] Urine, clean voided 07/25/2024 9:58 AM TOOTH CLERK 07/25/2024 2:13 PM TOOTH CLERK Narrative [facility] - 07/27/2024 6:24 AM TOOTH CLERK Testing performed by [facility] Microbiology Laboratory ([phone]) us Meng Burdick MD LAB MICROBIOLOGY - GENERAL ORDERABLES Final Result Performing Organization Address City/[facility] Co de Phone Number [facility] Department [place] [address] * (ABNORMAL) Differential, auto (07/15/2024 2:25 PM TOOTH CLERK) Neutrophil abs 7.1(H) 1.5 - 6.5 K/cumm Comment:Testing performed by : [facility], [address] [place] [phone] Lymphocyte abs 2.5 0.8 - 3.3 K/cumm [facility] Comment:Testing performed by : [facility], [address] [place] [phone] Monocyte abs 0.6 0.2 - 0.8 K/cumm [facility] Comment:Testing performed by : [facility], [address] [place], [place] [phone] Eosinophil abs 0.2 0.0 - 0.5 K/cumm [facility] Comment:Testing performed by : [facility], [address] [place], [place] [phone] Basophil abs 0.0 0.0 - 0.1 K/cumm [facility] Comment:Testing performed by : [facility], [address] [place], [place] [phone] Neutrophil pct 68.5 % [facility] Comment: Interpretive Data Percent cell count reference ranges are not reported, since discordance with absolute values may lead to misinterpretation of CBC data. Current Interpretive Data was last revised on 2017. Testing performed by: [facility], [address] [place] [phone] Lymphocyte pct 23.9 % [facility] Comment: Interpretive Data Percent cell count reference ranges are not reported, since discordance with absolute values may lead to misinterpretation of CBC data. Current Interpretive Data was last revised on 2017. Testing performed by: [facility], [address] [place] [phone] Monocyte pct 5.7 % [facility] Comment: Interpretive Data Percent cell count reference ranges are not reported, since discordance with absolute values may lead to misinterpretation of CBC data. Current Interpretive Data was last revised on 2017. Testing performed by: [facility], [address] [place] [phone] Eosinophil pct 1.5 % [facility] Comment: Interpretive Data Percent cell count reference ranges are not reported, since discordance with absolute values may lead to misinterpretation of CBC data. Current Interpretive Data was last revised on 2017. Testing performed by: [facility], [address] [place] [phone] Basophil pct 0.4 % [facility] Comment: Interpretive Data Percent cell count reference ranges are not reported, since discordance with absolute values may lead to misinterpretation of CBC data. Current Interpretive Data was last revised on 2017. Testing performed by: [facility], [address] [place] [phone] Blood 07/15/2024 2:25 PM TOOTH CLERK 07/15/2024 2:42 PM TOOTH CLERK Alisha Nair MD LAB BLOOD ORDERABLES Final Resul t Performing Organization Address [facility]/ZIP Co de Phone Number [facility] Department [place] [address] * (ABNORMAL) Iron profile w/ IBC (07/15/2024 2:25 PM TOOTH CLERK) Pathologist [facility] Iron 38 35 - 145 mcg/dL TIBC 258 250 - 400 mcg/dL [facility] Transferrin saturation 15(L) 20 - 50 % [facility] Blood 07/15/2024 2:25 PM TOOTH CLERK 07/15/2024 2:45 PM TOOTH CLERK Alisha Nair MD LAB BLOOD ORDERABLES Final Resul t [facility] Department [place] [address] * (ABNORMAL) CBC with auto differential (07/15/2024 2:25 PM TOOTH CLERK) WBC 10.4(H) 3.8 - 9.9 K/cumm Comment:Testing performed by : [facility], [address] [place] [phone] Hgb 10.7(L) 11.9 - 15.5 g/dL [facility] Comment:Testing performed by : [facility], [address] [place], [place] [phone] Hct 33.2(L) 35.6 - 45.5 % [facility] Comment:Testing performed by : [facility], [address] [place], [place] [phone] Plt 381 150 - 400 K/cumm [facility] Comment:Testing performed by : [facility], [address] [place], [place] [phone] MPV 8.9 6.8 - 10.4 fL [facility] Comment:Testing performed by : [facility], [address] [place], [place] [phone] RBC 4.28 3.90 - 5.20 M/cumm [facility] Comment:Testing performed by : [facility], [address] [place], [place] [phone] MCV 77.7(L) 81.3 - 96.4 fL [facility] Comment:Testing performed by : [facility], [address] [place], [place] [phone] MCH 25.0(L) 27.1 - 33.3 pg [facility] Comment:Testing performed by : [facility], [address] [place], [place] [phone] MCHC 32.1(L) 32.3 - 35.7 g/dL [facility] Comment:Testing performed by : [facility], [address] [place] [address] RDW CV 16.1(H) 11.1 - 14.9 % [facility] Comment:Testing performed by : [facility], [address] [place], [place] [phone] NRBC abs 0.00 0.00 - 0.01 K/cumm [facility] Comment:Testing performed by : [facility], [address] [place] [address] Blood 07/15/2024 2:25 PM TOOTH CLERK 07/15/2024 2:42 PM TOOTH CLERK Alisha Nair MD LAB BLOOD ORDERABLES Final Resul t Performing Organization Address [facility] [place] [address] * Reticulocyte Count (07/15/2024 2:25 PM TOOTH CLERK) Retics, absolute 0.069 0.020 - 0.100 M/cumm Comment:Testing performed by : [facility], [address] [place] [phone] Retics 1.6 0.5 - 1.8 % [facility] Comment:Testing performed by : [facility], [address] [place] [phone] Blood 07/15/2024 2:25 PM TOOTH CLERK 07/15/2024 2:42 PM TOOTH CLERK Alisha Nair MD LAB BLOOD ORDERABLES Final Resul t Performing Organization Address [facility] [place] [address] * (ABNORMAL) Ferritin (07/15/2024 2:25 PM TOOTH CLERK) Ferritin 316(H) 13 - 150 ng/mL Blood 07/15/2024 2:25 PM TOOTH CLERK 07/15/2024 2:45 PM TOOTH CLERK Alisha Nair MD LAB BLOOD ORDERABLES Final Resul t Performing Organization Address [facility] [place] [address] from Last 3 Months Insurance [employer] Address[address] [place] [address] [employer] Address: [address] [place] [address] [employer] Address: [address] [place] [address] , [place] [address] Care Teams Placement Specialist Relationship Specialty Start Date End Date Belinda Martin MD [address] [place] [address] DR Arminda CHRISTIANSON [address] [place] [id number] PCP - General Internal Medicine 08/08/24 Yovanny Lamar MD Medical Oncologist/Line Department Supervisor Hematology and Oncology 11/09/22
--- OUTSIDE RECORDS SUMMARY | 2024-10-09 16:44 | XMS_ITS | Data Portability ---
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 Zavala Call office if worse, ER if life-threatening illness RTC in 1 month She voices understanding of plan and agrees [email or web address] Not available 10/21/2022 20:34:54 11/15/2022 11/15/2022 This note is dictated and transcribed by [employer]. Interlocker variances may occur. Despite proofreading, typographical errors may occur. Not available 11/15/2022 12:23:37 11/21/2022 11/21/2022 Cscope- 10/2022- family hx colon ca (grandfather)- repeat 5 years- 10/2027 JESSICAE- LARD MAKERDouglas Zavala Call office if worse, ER if life-threatening illness RTC in 3 months She voices understanding of plan and agrees Not available 11/21/2022 17:00:57 02/27/2023 02/27/2023 Cscope- 10/2022- family hx colon ca (grandfather)- repeat 5 years- 10/2027 WWE- LARD MAKERDouglas Zavala [facility]-11/21/22 Call office if worse, ER if life-threatening illness RTC in 4 months She voices understanding of plan and agrees [email or web address] Not available 02/27/2023 17:11:49 03/16/2023 03/16/2023 This note is dictated and transcribed by [employer]. Interlocker variances may occur. Despite proofreading, typographical errors may occur. Not available 03/20/2023 08:55:07 Plan of Treatment Reminders Order Date Submit Date Provider Last Modified By Organization Details Last Modified Time Details Appointments None recorded. Lab glycohemogl obin, total, blood 2022 023 [facility] (Lab), [address] [place], [address], 3 19:23:24 microalbumi n/creatinin e, ratio, urine 2022 023 [facility] (Lab), [address] [place], [address], 3 17:23:30 CMP, serum or plasma 2022 023 [facility] (Lab), [address] [place], [address], 3 17:26:40 lipid panel, serum 2022 023 [facility] (Lab), [address] [place], [address], 3 17:26:44 CBC w/ auto diff 2022 023 [facility] (Lab), [address] [place], [address], 3 17:19:07 Referral gynecologis t referral - eval for ablation- hgb down to 7.6 2022 024 [email or web address] antonionerFredo Zavala MD, [address], [place], [address], 4 08:38:22 physical therapist referral [address] [facility], [address] [place], [address], 4 09:38:12 Procedures None recorded. Surgeries None recorded. Imaging None recorded. Medication Orders Trulicity 4.5 mg/0.5 mL subcutaneou s pen injector [address] [id number], [address] [place], [place], [id number], 4 15:51:53 Zithromax Z-Jh 250 mg tablet [address] [facility][id number], [address] [place], [place], [id number], 4 15:51:08 Medrol (Jh) 4 mg tablets in a dose pack [address] [id number], [address] [place], [place], [id number], 4 15:51:29 albuterol sulfate HFA 90 mcg/actuati on aerosol inhaler [address] [facility][id number], [address] [place], [place], [id number], 3 16:27:24 Trulicity 3 mg/0.5 mL subcutaneou s pen injector [address] [facility][id number], [address] [place], [place], [id number], 4 15:51:50 amlodipine 5 mg tablet [address] [facility] #[id number], [address] [place], [place], [id number], 3 16:23:24 omeprazole 40 mg capsule,del ayed release [address] [facility] #[id number], [address] [place], [place], [id number], 3 16:43:48 amlodipine 5 mg tablet [address] [facility] #95965, [address] [place], [place], [id number], 3 16:43:48 Trulicity 1.5 mg/0.5 mL subcutaneou s pen injector 2022 023 [facility] #[id number], [address] [place], [place], [id number], 3 16:06:01 Patient TargetsNo targets recorded. Patient Instructions Encounter Date Encounter Id Patient Instructions Last Modified By Organization Details Last Modified Time 11/15/2022 [id number] plantar fasciiti s education Not available 11/15/2022 12:26:26 plantar fasciiti s: exercises Not available 11/15/2022 12:26:26 diabetic neuropathy education Not available 11/15/2022 12:26:10 diabetic foot ca re education Not available 11/15/2022 12:26:10 11/21/2022 [id number] INFLUENZA VACCIN E TD/TDAP Recommended today, patient declined Ordered P atient will get at local pharmacy/health department MAMMOGRAM Recommended today, but patient declined Ordered N o screening indicated at this time/ no family history CERVICAL SCREENING/PELVIC EXAMINATION No screening necessary patient is up to date COLORECTAL SCREENING No screening necessary patient is up to date DEPRESSION SCREENING Negative BMI Morbid Obesity continue your current weight loss efforts NUTRITION Heart Healthy Diet Recommendatio n of a 1500 caloric intake for weight loss is advised Diabetic Diet PHYSICAL ACTIVITY Need more activity Recommendation of 10-20 minutes of activity that causes mild breathlessness daily Recommendati on of 30 minutes of daily activity VISION Ordered Recommende d today ALCOHOL USE No alcohol use Occasional/Soc ial Use TOBACCO USE non smoker SEXUALLY ACTIVE Yes, Patient is in monogamous relationship GLUCOSE SCREENING Known Diabetic LIPID SCREENING Ordered Not needed [email or web address] Not available 11/21/2022 17:03:49 Reason for Referral Physical Therapist Referral for Chronic low back pain Referring Physician: Caitlyn Jiang, Internal Medicine, Encounter Date: 11/21/2022 [employer] Referral for Me norrhagia eval for ablation- hgb down to 7.6 Referring Physician: Caitlyn Jiang, Internal Medicine, Encounter Date: 02/27/2023 Results Created Date Observation Date Name Description Value Unit Range Abnormal Flag Note LastModifiedBy Organization Detail LastModifiedTime 09/27/19 23 09/28/2022 CBC/C OMPLE TE BLD COUNT W/DIF F white blood cells 13.4 x10'3 /uL 4.2-10 .8 high Not Available [facility] (Lab) [address] [place], [address], 09/28/2022 12:19:58 09/27/1909/28/2022 CBC/C OMPLE TE BLD COUNT W/DIF F red blood cells 4.22 x10'6 /uL 3.80-5 .20 Not Available [facility] (Lab) [address] [place], [address], 09/28/2022 12:19:58 09/27/19 23 09/28/2022 CBC/C OMPLE TE BLD COUNT W/DIF F hemoglobin 7.6 g/dL 12.0-1 5.6 low Not Available [facility] (Lab) [address] [place], [address], 09/28/2022 12:19:58 09/27/19 23 09/28/2022 CBC/C OMPLE TE BLD COUNT W/DIF F hematocrit 27.5 % 35.7-4 5[address] [facility] (Lab) [address] [place], [address], 09/28/2022 12:19:58 04/10/20 23 09/28/2022 CBC/C OMPLE TE BLD COUNT W/DIF F mean red cell volume 65.2 fL 82.0-9 9[address] [facility] (Lab) [address] [place], [address], 09/28/2022 12:19:58 09/27/19 23 09/28/2022 CBC/C OMPLE TE BLD COUNT W/DIF F mean red cell hemoglobin 18.0 pg 27.0-3 [address] [facility] (Lab) [address] [place], [address], 09/28/2022 12:19:58 09/27/1909/28/2022 CBC/C OMPLE TE BLD COUNT W/DIF F mean RBC HGB concentratio n 27.6 g/dL 31.0-[address] [facility] (Lab) [address] [place], [address], 09/28/2022 12:19:58 09/27/19 23 09/28/2022 CBC/C OMPLE TE BLD COUNT W/DIF F red cell distribution width 18.3 % 11.8-1 5[address] [facility] (Lab) [address] [place], [address], 09/28/2022 12:19:58 09/27/19 23 09/28/2022 CBC/C OMPLE TE BLD COUNT W/DIF F platelets 563 x10'3 /uL 150-[address] [facility] (Lab) [address] [place], [address], 09/28/2022 12:19:58 09/27/1909/28/2022 CBC/C OMPLE TE BLD COUNT W/DIF F mean platelet volume 9.5 fL 9.0-[address] [facility] (Lab) [address] [place], [address], 09/28/2022 12:19:58 09/27/1909/28/2022 CBC/C OMPLE TE BLD COUNT W/DIF F neutrophils 80.4 % 39.0-7 2[address] [facility] (Lab) [address] [place], [address], 09/28/2022 12:19:58 09/27/1909/28/2022 CBC/C OMPLE TE BLD COUNT W/DIF F lymphocytes 14.8 % 16.0-4 7.0 low Not Available [facility] (Lab) [address] [place], [address], 09/28/2022 12:19:58 09/27/1909/28/2022 CBC/C OMPLE TE BLD COUNT W/DIF F monocytes 3.7 % 5.0-12 [address] [facility] (Lab) [address] [place], [address], 09/28/2022 12:19:58 09/27/1909/28/2022 CBC/C OMPLE TE BLD COUNT W/DIF F eosinophils 0.6 % 1.0-7. [address] [facility] (Lab) [address] [place], [address], 09/28/2022 12:19:58 09/27/1909/28/2022 CBC/C OMPLE TE BLD COUNT W/DIF F basophils 0.1 % 0.0-2. [address] [facility] (Lab) [address] [place], [address], 09/28/2022 12:19:58 09/27/1909/28/2022 CBC/C OMPLE TE BLD COUNT W/DIF F immature granulocytes 0.4 % 0.00-[address] [facility] (Lab) [address] [place], [address], 09/28/2022 12:19:58 09/27/1909/28/2022 CBC/C OMPLE TE BLD COUNT W/DIF F neutrophils, absolute count 10.75 x10'3 /uL 1.5-8. [address] [facility] (Lab) [address] [place], [address], 09/28/2022 12:19:58 09/27/1909/28/2022 CBC/C OMPLE TE BLD COUNT W/DIF F lymphocytes, absolute count 1.98 x10'3 /uL 1.07-[address] [facility] (Lab) [address] [place], [address], 09/28/2022 12:19:58 09/27/1909/28/2022 CBC/C OMPLE TE BLD COUNT W/DIF F monocytes, absolute count 0.50 x10'3 /uL 0.29-[address] [facility] (Lab) [address] [place], [address], 09/28/2022 12:19:58 09/27/1909/28/2022 CBC/C OMPLE TE BLD COUNT W/DIF F eosinophils, absolute count 0.08 x10'3 /uL 0.02-[address] [facility] (Lab) [address] [place], [address], 09/28/2022 12:19:58 09/27/1909/28/2022 CBC/C OMPLE TE BLD COUNT W/DIF F basophils, absolute count 0.01 x10'3 /uL 0.01-[address] [facility] (Lab) [address] [place], [address], 09/28/2022 12:19:58 09/27/19 23 09/28/2022 CBC/C OMPLE TE BLD COUNT W/DIF F immature granulocytes ,absolute 0.06 x10'3 /uL 0.00-0 [address] [facility] (Lab) [address] [place], [address], 09/28/2022 12:19:58 09/27/19 23 09/28/2022 CBC/C OMPLE TE BLD COUNT W/DIF F nucleated red blood cells 0.0 % -0 Not Available [facility] (Lab) [address] [place], [address], 09/28/2022 12:19:58 09/27/19 23 09/28/2022 CBC/C OMPLE TE BLD COUNT W/DIF F NRBC# 0.00 x10'3 /uL Not Available [facility] (Lab) [address] [place], [address], 09/28/2022 12:19:58 09/27/19 23 09/28/2022 CBC/C OMPLE TE BLD COUNT W/DIF F anisocytosis 1+ Not Available [facility] (Lab) [address] [place], [address], 09/28/2022 12:19:58 09/27/19 23 09/28/2022 CBC/C OMPLE TE BLD COUNT W/DIF F poikilocytos is 1+ Not Available [facility] (Lab) [address] [place], [address], 09/28/2022 12:19:58 09/27/19 23 09/28/2022 CBC/C OMPLE TE BLD COUNT W/DIF F hypochromia 2+ Not Available [facility] (Lab) [address] [place], [address], 09/28/2022 12:19:58 09/27/19 23 09/28/2022 CBC/C OMPLE TE BLD COUNT W/DIF F microcytosis 2+ Not Available [facility] (Lab) [address] [place], [address], 09/28/2022 12:19:58 09/27/19 23 09/28/2022 CBC/C OMPLE TE BLD COUNT W/DIF F polychromato philic RBCs OCCASI ONAL Not Available [facility] (Lab) [address] [place], [address], 09/28/2022 12:19:58 09/27/19 23 09/28/2022 CBC/C OMPLE TE BLD COUNT W/DIF F target cells OCCASI ONAL Not Available [facility] (Lab) [address] [place], [address], 09/28/2022 12:19:58 09/27/19 23 09/28/2022 CBC/C OMPLE TE BLD COUNT W/DIF F ovalocytes OCCASI ONAL Not Available [facility] (Lab) [address] [place], [address], 09/28/2022 12:19:58 09/27/19 23 09/28/2022 CBC/C OMPLE TE BLD COUNT W/DIF F teardrop red blood cells OCCASI ONAL Not Available [facility] (Lab) [address] [place], [address], 09/28/2022 12:19:58 09/27/19 23 09/28/2022 CBC/C OMPLE TE BLD COUNT W/DIF F schistocytes OCCASI ONAL Not Available [facility] (Lab) [address] [place], [address], 09/28/2022 12:19:58 09/27/19 23 09/26/2022 IRON/ TIBC PANEL total iron binding capacity 353 mcg/d L 265-[address] [facility] (Lab) [address] [place], [address], 09/26/2022 17:56:10 09/27/1909/26/2022 IRON/ TIBC PANEL % transferrin saturation 7 % 20-55 low Not Available [facility] (Lab) [address] [place], [address], 09/26/2022 17:56:10 09/27/19 23 09/26/2022 IRON/ TIBC PANEL unsaturated iron bind capacity 330 mcg/d L 126-[address] [facility] (Lab) [address] [place], [address], 09/26/2022 17:56:10 09/27/19 23 09/26/2022 IRON/ TIBC PANEL iron 23 mcg/d L 42-[address] [facility] (Lab) [address] [place], [address], 09/26/2022 17:56:10 09/27/19 23 09/26/2022 COMPR EHENS KYAW METAB OLIC PANEL sodium 139 mmol/ L 137-[address] [facility] (Lab) [address] [place], [address], 09/26/2022 17:56:02 09/27/19 23 09/26/2022 COMPR EHENS KYAW METAB OLIC PANEL potassium 4.0 mmol/ L 3.5-5. [address] [facility] (Lab) [address] [place], [address], 09/26/2022 17:56:02 09/27/19 23 09/26/2022 COMPR EHENS KYAW METAB OLIC PANEL chloride 103 mmol/ L 98-[address] [facility] (Lab) [address] [place], [address], 09/26/2022 17:56:02 09/27/19 23 09/26/2022 COMPR EHENS KYAW METAB OLIC PANEL carbon dioxide 28 mmol/ L 22-[address] [facility] (Lab) [address] [place], [address], 09/26/2022 17:56:02 09/27/19 23 09/26/2022 COMPR EHENS KYAW METAB OLIC PANEL anion gap 12.0 mmol/ L 14-[address] [facility] (Lab) [address] [place], [address], 09/26/2022 17:56:02 09/27/19 23 09/26/2022 COMPR EHENS KYAW METAB OLIC PANEL glucose 104 mg/dL 70-[address] [facility] (Lab) [address] [place], [address], 09/26/2022 17:56:02 09/27/19 23 09/26/2022 COMPR EHENS KYAW METAB OLIC PANEL BUN 10 mg/dL 8-[address] [facility] (Lab) [address] [place], [address], 09/26/2022 17:56:02 09/27/19 23 09/26/2022 COMPR EHENS KYAW METAB OLIC PANEL creatinine 0.71 mg/dL 0.66-[address] [facility] (Lab) [address] [place], [address], 09/26/2022 17:56:02 09/27/19 23 09/26/2022 COMPR EHENS KYAW METAB OLIC PANEL GFR >60 Refer ence Range : [place] [facility] GFR Healt hy Adult : >60 mL/mi n/1.7 3 m2 Chron ic Kidne y Disea se: 15-60 mL/mi n/1.7 3 m2 Kidne y Failu re: <15/m L/min /1.73 m2 www.n iddk. nih.g ov The MDRD study equat ion has not been valid ated in child laz <18 years of age; pregn ant women ; the elder ly >85 years of age; or in some racia l or ethni c subgr oups, such as Hispa nics. Outsi de the valid ated zuri eters , estim ated GFR is less accur ate, requi ring clini nathalia judgm ent on a case- by-ca se basis . Clini nathalia inter preta tion for other races and ages must be made by the clini melissa. The MDRD study equat ion has not been valid ated for the evalu ation of serum creat inine relat ed to nutri rogelio l statu s or medic ation usage . For perso ns <18 years of age, a pedia tric GFR calcu lator is avail able on the [facility] websi te: https ://jessica w.kid romain.o rg/pr ofess ional s/kdo qi/gf r_cal culat or Not Available [facility] (Lab) [address] [place], [address], 09/26/2022 17:56:02 09/27/19 23 09/26/2022 COMPR EHENS KYAW METAB OLIC PANEL alkaline phosphatase 86 U/L 38-126 Not Available [facility] (Lab) [address] [place], [address], 09/26/2022 17:56:02 09/27/19 23 09/26/2022 COMPR EHENS KYAW METAB OLIC PANEL alanine aminotransfe rase 17 U/L 0-35 Not Available [facility] (Lab) [address] [place], [address], 09/26/2022 17:56:02 09/27/19 23 09/26/2022 COMPR EHENS KYAW METAB OLIC PANEL aspartate aminotransfe rase 22 U/L 15-37 Not Available [facility] (Lab) [address] [place], [address], 09/26/2022 17:56:02 09/27/19 23 09/26/2022 COMPR EHENS KYAW METAB OLIC PANEL bilirubin, total 0.30 mg/dL 0.20-[address] [facility] (Lab) [address] [place], [address], 09/26/2022 17:56:02 04/10/20 23 09/26/2022 COMPR EHENS KYAW METAB OLIC PANEL calcium 9.3 mg/dL 8.4-[address] [facility] (Lab) [address] [place], [address], 09/26/2022 17:56:02 09/27/19 23 09/26/2022 COMPR EHENS KYAW METAB OLIC PANEL total protein 7.6 g/dL 6.3-8. 2 Not Available [facility] (Lab) [address] [place], [address], 09/26/2022 17:56:02 09/27/19 23 09/26/2022 COMPR EHENS KYAW METAB OLIC PANEL albumin 4.0 g/dL 3.4-5. [address] [facility] (Lab) [address] [place], [address], 09/26/2022 17:56:02 09/27/19 23 09/26/2022 COMPR EHENS KYAW METAB OLIC PANEL globulin 3.6 g/dL 2.6-4. [address] [facility] (Lab) [address] [place], [address], 09/26/2022 17:56:02 09/27/19 23 09/26/2022 COMPR EHENS KYAW METAB OLIC PANEL A/G ratio 1.1 ratio 1.0-2. [address] [facility] (Lab) [address] [place], [address], 09/26/2022 17:56:02 09/27/19 23 09/26/2022 LIPID PANEL cholesterol 158 mg/dL 140-19 9 NIH REHAN NSUS RECOM MENDA TION FOR JUAN STERO L: ADULT CHILD LOW RISK: <200 <170 BORDE RLINE : <200- 239 ----- HIGH RISK: >240 >[address] [facility] (Lab) [address] [place], [address], 09/26/2022 17:56:04 09/27/19 23 09/26/2022 LIPID PANEL triglyceride s 60 mg/dL 0-150 NIH REHAN NSUS REPOR T RECOM MENDA TION FOR TRIGL YCERI GAIL: ADULT CHILD LOW RISK: <150 ----- BODER LINE: 150-1 99 ----- HIGH RISK: >200 ----- Not [address] [facility] (Lab) [address] [place], [address], 09/26/2022 17:56:04 09/27/19 23 09/26/2022 LIPID PANEL HDL cholesterol 63 mg/dL 40- Not Available [facility] (Lab) [address] [place], [address], 09/26/2022 17:56:04 09/27/19 23 09/26/2022 LIPID PANEL LDL cholesterol, calculated 83 mg/dL 0-130 NIH REHAN NSUS REPOR T RECOM MENDA TIONS FOR LDL: ADULT CHILD LOW RISK <130 <110 (OPTI MAL LDL) <100 ----- BORDE RLINE : 130-1 59 ----- HIGH RISK: >160 >130 A TRIGL YCERI DE RESUL T >400 INVAL IDATE S THE CALCU LATIO N FOR LDL FRACT IONAT ION - THE LDL RESUL T WILL NOT BE REPOR GRETA. Not Available [facility] (Lab) [address] [place], [address], 09/26/2022 17:56:04 09/27/19 23 09/26/2022 VITAM IN D 25-HY DROXY vd25oh 21.9 NG/mL 30-100 low Vitam in D Statu s: Defic ient: <20 ng/mL Insuf ficie nt: 20-29 ng/mL Suffi cient : 30-10 0 ng/mL Not Available [facility] (Lab) [address] [place], [address], 09/26/2022 18:05:56 09/27/19 23 09/26/2022 T4 FREE free T4 1.17 NG/dL 0.78-[address] [facility] (Lab) [address] [place], [address], 09/26/2022 18:06:11 09/27/19 23 09/26/2022 CORTI KATHRIN, TOTAL eliza 5.4 ug/dL CORTI KATHRIN RESUL T COMME NT: Refer ence Range : Befor e 10 a.m. Speci men: 4.5-2 2.7 Refer ence Range : After 5 p.m. Speci men: 1.7-[address] ease inter pret above resul ts accor dingl y Not Available [facility] (Lab) [address] [place], [address], 09/26/2022 18:17:40 09/27/19 23 09/26/2022 TSH thyroid-stim ulating hormone 0.982 uIU/m L 0.465- 4.680 Not Available [facility] (Lab) [address] [place], [address], 09/26/2022 18:17:45 09/27/19 23 09/26/2022 AP TIN ferritin 9 NG/mL 6.24-[address] [facility] (Lab) [address] [place], [address], 09/26/2022 18:20:18 09/27/19 23 09/26/2022 VITAM IN B12 (STEFFANIE ALONSO ) vb12 564 pg/mL 239-[address] [facility] (Lab) [address] [place], [address], 09/26/2022 18:49:32 09/27/19 23 09/26/2022 FOLAT E, SERUM /PLAS MA folate 4.85 NG/mL 2.76-[address] [facility] (Lab) [address] [place], [address], 09/26/2022 18:49:37 09/27/19 23 09/26/2022 HEMOG LOBIN A1C HA1C 6.5 % 4.0-6. 0 high Diabe danica Scree jeanie Crite jeannette: <5.7% Consi stent with absen ce of diabe danica 5.7-6 .4% Consi stent with incre ased risk for diabe danica (pred iabet es) >OR=6 .5% Consi stent with diabe danica REFER ENCE: Diabe danica Care 2016, 39(Dodd ppl.1 ):s13 -s22 [address] [facility] (Lab) [address] [place], [address], 09/26/2022 20:19:14 09/27/19 23 09/27/2022 INSUL IN insulin 54.0 uIU/m L 2.6-24 .9 high Perfo rmed at: [facility] [place] [address] Lab Direc tor: Krish morel PhD, Phone : [phone] [facility] (Lab) [address] [place], [address], 09/27/2022 10:12:51 02/28/2002/28/2023 CBC/C OMPLE TE BLD COUNT W/DIF F white blood cells 9.5 x10'3 /uL 4.2-[address] [facility] (Lab) [address] [place], [address], 02/28/2023 10:25:36 02/28/20 23 02/28/2023 CBC/C OMPLE TE BLD COUNT W/DIF F red blood cells 4.40 x10'6 /uL 3.80-[address] [facility] (Lab) [address] [place], [address], 02/28/2023 10:25:36 02/28/20 23 02/28/2023 CBC/C OMPLE TE BLD COUNT W/DIF F hemoglobin 9.6 g/dL 12.0-1 5.6 low Not Available [facility] (Lab) [address] [place], [address], 02/28/2023 10:25:36 02/28/20 23 02/28/2023 CBC/C OMPLE TE BLD COUNT W/DIF F hematocrit 32.6 % 35.7-4 5.7 low Not Available [facility] (Lab) [address] [place], [address], 02/28/2023 10:25:36 02/28/20 23 02/28/2023 CBC/C OMPLE TE BLD COUNT W/DIF F mean red cell volume 74.1 fL 82.0-9 9.[address] [facility] (Lab) [address] [place], [address], 02/28/2023 10:25:36 02/28/20 23 02/28/2023 CBC/C OMPLE TE BLD COUNT W/DIF F mean red cell hemoglobin 21.8 pg 27.0-3 3.0 low Not Available [facility] (Lab) [address] [place], [address], 02/28/2023 10:25:36 02/28/20 23 02/28/2023 CBC/C OMPLE TE BLD COUNT W/DIF F mean RBC HGB concentratio n 29.4 g/dL 31.0-3 6.0 low Not Available [facility] (Lab) [address] [place], [address], 02/28/2023 10:25:36 02/28/20 23 02/28/2023 CBC/C OMPLE TE BLD COUNT W/DIF F red cell distribution width 19.3 % 11.8-1 5[address] [facility] (Lab) [address] [place], [address], 02/28/2023 10:25:36 02/28/20 23 02/28/2023 CBC/C OMPLE TE BLD COUNT W/DIF F platelets 462 x10'3 /uL 150-40 0 high Not Available [facility] (Lab) [address] [place], [address], 02/28/2023 10:25:36 02/28/20 23 02/28/2023 CBC/C OMPLE TE BLD COUNT W/DIF F mean platelet volume 9.8 fL 9.0-12 .4 Not Available [facility] (Lab) [address] [place], [address], 02/28/2023 10:25:36 02/28/20 23 02/28/2023 CBC/C OMPLE TE BLD COUNT W/DIF F neutrophils 63.6 % 39.0-7 2.0 Not Available [facility] (Lab) [address] [place], [address], 02/28/2023 10:25:36 02/28/20 23 02/28/2023 CBC/C OMPLE TE BLD COUNT W/DIF F lymphocytes 27.0 % 16.0-[address] [facility] (Lab) [address] [place], [address], 02/28/2023 10:25:36 02/28/20 23 02/28/2023 CBC/C OMPLE TE BLD COUNT W/DIF F monocytes 7.3 % 5.0-[address] [facility] (Lab) [address] [place], [address], 02/28/2023 10:25:36 02/28/20 23 02/28/2023 CBC/C OMPLE TE BLD COUNT W/DIF F eosinophils 1.5 % 1.0-7. [address] [facility] (Lab) [address] [place], [address], 02/28/2023 10:25:36 02/28/20 23 02/28/2023 CBC/C OMPLE TE BLD COUNT W/DIF F basophils 0.2 % 0.0-2. [address] [facility] (Lab) [address] [place], [address], 02/28/2023 10:25:36 02/28/20 23 02/28/2023 CBC/C OMPLE TE BLD COUNT W/DIF F immature granulocytes 0.4 % 0.00-[address] [facility] (Lab) [address] [place], [address], 02/28/2023 10:25:36 02/28/20 23 02/28/2023 CBC/C OMPLE TE BLD COUNT W/DIF F neutrophils, absolute count 6.04 x10'3 /uL 1.5-8. [address] [facility] (Lab) [address] [place], [address], 02/28/2023 10:25:36 02/28/20 23 02/28/2023 CBC/C OMPLE TE BLD COUNT W/DIF F lymphocytes, absolute count 2.56 x10'3 /uL 1.07-[address] [facility] (Lab) [address] [place], [address], 02/28/2023 10:25:36 02/28/20 23 02/28/2023 CBC/C OMPLE TE BLD COUNT W/DIF F monocytes, absolute count 0.69 x10'3 /uL 0.29-[address] [facility] (Lab) [address] [place], [address], 02/28/2023 10:25:36 02/28/20 23 02/28/2023 CBC/C OMPLE TE BLD COUNT W/DIF F eosinophils, absolute count 0.14 x10'3 /uL 0.02-[address] [facility] (Lab) [address] [place], [address], 02/28/2023 10:25:36 02/28/20 23 02/28/2023 CBC/C OMPLE TE BLD COUNT W/DIF F basophils, absolute count 0.02 x10'3 /uL 0.01-[address] [facility] (Lab) [address] [place], [address], 02/28/2023 10:25:36 02/28/20 23 02/28/2023 CBC/C OMPLE TE BLD COUNT W/DIF F immature granulocytes ,absolute 0.04 x10'3 /uL 0.00-[address] [facility] (Lab) [address] [place], [address], 02/28/2023 10:25:36 02/28/20 23 02/28/2023 CBC/C OMPLE TE BLD COUNT W/DIF F nucleated red blood cells 0.0 % -0 Not Available [facility] (Lab) [address] [place], [address], 02/28/2023 10:25:36 02/28/20 23 02/28/2023 CBC/C OMPLE TE BLD COUNT W/DIF F NRBC# 0.00 x10'3 /uL Not Available [facility] (Lab) [address] [place], [address], 02/28/2023 10:25:36 02/28/20 23 02/28/2023 CBC/C OMPLE TE BLD COUNT W/DIF F hypochromia OCCASI ONAL Not Available [facility] (Lab) [address] [place], [address], 02/28/2023 10:25:36 02/28/20 23 02/28/2023 CBC/C OMPLE TE BLD COUNT W/DIF F microcytosis 1+ Not Available [facility] (Lab) [address] [place], [address], 02/28/2023 10:25:36 02/28/20 23 02/27/2023 MICRO ALBUM N RNDM W/CRE AT RATIO ur creat 151.47 mg/dL REFER ENCE RANGE NOT ESTAB LISHE D FOR RANDO M URINE CREAT ININE Not Available [facility] (Lab) [address] [place], [address], 02/27/2023 17:23:45 02/28/20 23 02/27/2023 MICRO ALBUM N RNDM W/CRE AT RATIO microalbumin , urine 13.2 mg/L 0.0-[address] [facility] (Lab) [address] [place], [address], 02/27/2023 17:23:45 02/28/20 23 02/27/2023 MICRO ALBUM N RNDM W/CRE AT RATIO microalbumin /creatinine ratio 9 mcg/m g 0-29 THE [facility] CAN DIABE [facility]AN[facility] ASS[facility] IATIO N DEFIN ES ABNOR MALIT IES IN ALBUM IN EXCRE TION FOLLO WS: CATEG ORY RESUL T (MCG/ MG CREAT ININE ) DREW L <30 MICRO ALBUM INURI A 30-29 9 CLINI NATHALIA ALBUM INURI A > OR = 300 THE ADA RECOM MENDS THAT 2 OF 2 SPECI MENS COLLE CTED WITHI N A 3- TO 6-MON TH PERIO D BE ABNOR MAL BEFOR E CONSI BRANDON G A PATIE NT TO HAVE CROSS ED ONE OF THESE DIAGN OSTIC THRES HOLDS . REFER ENCE: DIABE DANICA CARE, VOL. 26: S94-S 96, [address] [facility] (Lab) [address] [place], [address], 02/27/2023 17:23:45 02/28/20 23 02/27/2023 COMPR EHENS KYAW METAB OLIC PANEL sodium 139 mmol/ L 137-[address] [facility] (Lab) [address] [place], [address], 02/27/2023 17:26:39 02/28/20 23 02/27/2023 COMPR EHENS KYAW METAB OLIC PANEL potassium 4.2 mmol/ L 3.5-5. [address] [facility] (Lab) [address] [facility] [place], [address], 02/27/2023 17:26:39 02/28/20 23 02/27/2023 COMPR EHENS KYWA METAB OLIC PANEL chloride 103 mmol/ L 98-107 Not Available [facility] (Lab) [address] [place], [address], 02/27/2023 17:26:39 02/28/20 23 02/27/2023 COMPR EHENS KYAW METAB OLIC PANEL carbon dioxide 28 mmol/ L 22-[address] [facility] (Lab) [address] [place], [address], 02/27/2023 17:26:39 02/28/20 23 02/27/2023 COMPR EHENS KYAW METAB OLIC PANEL anion gap 12.2 mmol/ L 14-[address] [facility] (Lab) [address] [place], [address], 02/27/2023 17:26:39 02/28/20 23 02/27/2023 COMPR EHENS KYAW METAB OLIC PANEL glucose 94 mg/dL 70-99 Not Available [facility] (Lab) [address] [place], [address], 02/27/2023 17:26:39 02/28/20 23 02/27/2023 COMPR EHENS KYAW METAB OLIC PANEL BUN 9 mg/dL 8-[address] [facility] (Lab) [address] [place], [address], 02/27/2023 17:26:39 02/28/20 23 02/27/2023 COMPR EHENS KYAW METAB OLIC PANEL creatinine 0.55 mg/dL 0.66-1 .[address] [facility] (Lab) [address] [place], [address], 02/27/2023 17:26:39 02/28/2002/27/2023 COMPR EHENS KYAW METAB OLIC PANEL GFR >60 Refer ence Range : [place] ge GFR Healt hy Adult : >60 mL/mi n/1.7 3 m2 Chron ic Kidne y Disea se: 15-60 mL/mi n/1.7 3 m2 Kidne y Failu re: <15/m L/min /1.73 m2 www.n iddk. nih.g ov The MDRD study equat ion has not been valid ated in child laz <18 years of age; pregn ant women ; the elder ly >85 years of age; or in some racia l or ethni c subgr oups, such as Hispa nics. Outsi de the valid ated zuri eters , estim ated GFR is less accur ate, requi ring clini nathalia judgm ent on a case- by-ca se basis . Clini nathalia inter preta tion for other races and ages must be made by the clini melissa. The MDRD study equat ion has not been valid ated for the evalu ation of serum creat inine relat ed to nutri rogelio l statu s or medic ation usage . For perso ns <18 years of age, a pedia tric GFR calcu lator is avail able on the [facility] websi te: https ://jessica w.kenan hoyos.o rg/pr phiess papitoal s/kdo qi/gf r_cal culat or Not Available [facility] (Lab) [address] [place], [address], 02/27/2023 17:26:39 02/28/2002/27/2023 COMPR EHENS KYAW METAB OLIC PANEL alkaline phosphatase 73 U/L 38-126 Not Available [facility] (Lab) [address] [place], [address], 02/27/2023 17:26:39 02/28/20 23 02/27/2023 COMPR EHENS KYAW METAB OLIC PANEL alanine aminotransfe rase 18 U/L 0-35 Not Available [facility] (Lab) [address] [place], [address], 02/27/2023 17:26:39 02/28/20 23 02/27/2023 COMPR EHENS KYAW METAB OLIC PANEL aspartate aminotransfe rase 21 U/L 15-37 Not Available [facility] (Lab) [address] [place], [address], 02/27/2023 17:26:39 02/28/20 23 02/27/2023 COMPR EHENS KYAW METAB OLIC PANEL bilirubin, total <0.1 mg/dL 0.20-1 .[address] [facility] (Lab) [address] [place], [address], 02/27/2023 17:26:39 02/28/20 23 02/27/2023 COMPR EHENS KYAW METAB OLIC PANEL calcium 9.5 mg/dL 8.4-[address] [facility] (Lab) [address] [place], [address], 02/27/2023 17:26:39 02/28/20 23 02/27/2023 COMPR EHENS KYAW METAB OLIC PANEL total protein 7.7 g/dL 6.3-8. [address] [facility] (Lab) [address] [facility] [place], [address], 02/27/2023 17:26:39 02/28/20 23 02/27/2023 COMPR EHENS KYAW METAB OLIC PANEL albumin 4.3 g/dL 3.4-5. [address] [facility] (Lab) [address] [place], [address], 02/27/2023 17:26:39 02/28/20 23 02/27/2023 COMPR EHENS KYAW METAB OLIC PANEL globulin 3.4 g/dL 2.6-4. [address] [facility] (Lab) [address] [place] [address], [address], 02/27/2023 17:26:39 02/28/20 23 02/27/2023 COMPR EHENS KYAW METAB OLIC PANEL A/G ratio 1.3 ratio 1.0-2. [address] [facility] (Lab) [address] [place] [address], [address], 02/27/2023 17:26:39 02/28/20 23 02/27/2023 LIPID PANEL cholesterol 170 mg/dL 140-19 9 NIH REHAN NSUS RECOM MENDA TION FOR JUAN STERO L: ADULT CHILD LOW RISK: <200 <170 BORDE RLINE : <200- 239 ----- HIGH RISK: >240 >[address] [facility] (Lab) [address] [place] [address], [address], 02/27/2023 17:26:44 02/28/20 23 02/27/2023 LIPID PANEL triglyceride s 57 mg/dL 0-150 NIH REHAN NSUS REPOR T RECOM MENDA TION FOR TRIGL YCERI GAIL: ADULT CHILD LOW RISK: <150 ----- BODER LINE: 150-1 99 ----- HIGH RISK: >200 ----- Not Available [facility] (Lab) [address] [place], [address], 02/27/2023 17:26:44 02/28/20 23 02/27/2023 LIPID PANEL HDL cholesterol 69 mg/dL 40- Not Available [facility] (Lab) [address] [place] [address], [address], 02/27/2023 17:26:44 02/28/20 23 02/27/2023 LIPID PANEL LDL cholesterol, calculated 90 mg/dL 0-130 NIH REHAN NSUS REPOR T RECOM MENDA TIONS FOR LDL: ADULT CHILD LOW RISK <130 <110 (OPTI MAL LDL) <100 ----- BORDE RLINE : 130-1 59 ----- HIGH RISK: >160 >130 A TRIGL YCERI DE RESUL T >400 INVAL IDATE S THE CALCU LATIO N FOR LDL FRACT IONAT ION - THE LDL RESUL T WILL NOT BE REPOR GRETA. Not Available [facility] (Lab) [address] [place], [address], 02/27/2023 17:26:44 02/28/2002/27/2023 HEMOG LOBIN A1C HA1C 5.8 % 4.0-6. 0 Diabe danica Scree jeanie Crite jeannette: <5.7% Consi stent with absen ce of diabe danica 5.7-6 .4% Consi stent with incre ased risk for diabe danica (pred iabet es) >OR=6 .5% Consi stent with diabe danica REFER ENCE: Diabe danica Care 2016, 39(Dodd ppl.1 ):s13 -s[address] [facility] (Lab) [address] [place], [address], 02/27/2023 19:23:24 09/27/19 23 09/26/2022 XR, foot [facility] [address] [place] [address] Patien t Name: BRENDEN GUTIERREZ Access ion #: [id number] Sex: F : 1984 5 Locati on: RAD Attend ing Physic ethan: CAITLYN JIANG Orderi ng Physic ethan: CAITLYN JIANG Exam Date: 023 4:02 PM Exam Name: XR FOOT RT 3V+ Admitt ing Diagno sis(es ): RADIOL OGY REPORT - FINAL EXAM: XR FOOT RT 3V+ HISTOR Y: pain in the right foot and heel 37-yea r-old female with right foot pain, no known injury . COMPAR DELMI: Radiog raphs dated 2021. TECHNI QUE: Three views of the right foot were perfor med. FINDIN GS: No acute fractu re or disloc ation are identi fied about the right foot. There may be an old fractu re of the 2nd toe distal phalan geal tuft, simila r to that seen on the previo us radiog raphs. There is mild osteoa rthrit is of the 1st MTP joint. Planta r calcan eal bone spur and Achill es insert ion enthes ophyte are incide ntally noted. 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 Patiyonatan t Name: BRENDEN GUTIERREZ Access ion #: [id number] Sex: F : 1984 5 Exam Date: 023 4:02 PM Exam Name: XR FOOT RT 3V+ Admitt ing Diagno sis(es ): phalan ges of the 5th toe. IMPRES ALIZA: 1. No acute fractu re of the right foot. 2. Nonacu te findin gs as detail ed above. Create d and electr onical ly signed by: Meng miner MD Signed Date: 4:39 PM (CT) Dictat ed by: Meng miner MD DD: 4:39 PM (CT) DT: 4:39 PM (CT) Page [address] of [address] (Imaging) [address] [place], [address], 09/27/2022 14:28:18 09/27/19 23 09/26/2022 XR, lumba r spine [facility] [address] [place] [address] Patiyonatan t Name: BRENDEN GUTIERREZ Access ion #: [id number] Sex: F : 1984 5 Locati on: RAD Attend ing Physic ethan: CAITLYN JIANG [facility] Physic ethan: CAITLYN JIANG Exam Date: 023 4:02 PM Exam Name: XR L SPINE 4V+ Admitt ing Diagno sis(es ): RADIOL OGY REPORT - FINAL EXAM: XR L SPINE 4V+ HISTOR Y: low back pain, unspec ified 37-yea r-old female with low back pain chroni luís. COMPAR DELMI: None availa ble. TECHNI QUE: Five views of the lumbar spine were perfor med. FINDIN GS: No fractu re or listhe sis of the lumbar spine. There is mild to modera te lumbar degene rative disc diseas e and facet arthro derrell. There is spina bifida occult a S1. There is a lumbos acral transi tional verteb cecilia with partia l lumbar izatio n of S1 the obliqu e films do not demons trate spondy lolysi s. Page 1 of [address] [facility] Name: BRENDEN GUTIERREZ Access ion #: [id number] Sex: F : 1984 5 Exam Date: 023 4:02 PM Exam Name: XR L SPINE 4V+ Admitt ing Diagno sis(es ): IMPRES ALIZA: 1. No fractu re of the lumbar spine. 2. Degene rative disc diseas e and facet arthro derrell. 3. Lumbos acral transi tional verteb cecilia and spina bifida occult a S1. Create d and electr onical ly signed by: Meng miner MD Signed Date: 023 4:40 PM (CT) Dictat ed by: Meng miner MD DD: 023 4:40 PM (CT) DT: 023 4:40 PM (CT) Page 2 of [address] (Imaging) [address] [place], [address], 09/27/2022 14:28:19 09/30/19 23 09/29/2022 MAMMO , scree jeanie, digit al, bilat eral No observ ation record ed. [address] [facility] [address] [place], [address], 09/29/2022 17:37:14 Result Notes None recorded. Problems Name Problem SNOMED Code Status Onset Date Resolution Date Notes Provider Name and Address Organization Details Recorded Time Acute tear of meniscus of right knee 9484648858031 9107 Active 2020 Not Available [facility] 3 22:34:57 Morbid obesity 534177845 Active 2020 Not Available [facility] 3 22:34:57 Pain in right foot 2639146721527 07 Active 2021 Not Available [facility] 3 22:34:57 Osteoarthr itis of left knee joint 4431792682318 09 Active 2021 Not Available [facility] 3 22:34:57 Osteoarthr itis of right knee joint 7252448057966 00 Active 2020 Not Available [facility] 3 22:34:57 Iron deficiency anemia 74345065 Active 2022 Not Available [facility] 3 22:34:58 Weight gain 1476740 Active 2022 Not Available [facility] 3 22:34:58 Chronic low back pain 578260874 Active 2022 Not Available [facility] 3 22:34:57 Pain in right heel 7900012177835 105 Active 2022 Not Available [facility] 3 22:34:57 Gastroesop hageal reflux disease without esophagiti s 961640723 Active 2022 Not Available [facility] 3 22:34:57 Psoriasis 2761954 Active 2022 Not Available [facility] 3 22:34:58 Elevated blood-pres sure reading without diagnosis of hypertensi on 396903255 Active 2022 Not Available [facility] 3 22:34:57 Vitamin D deficiency 96961422 Active 2022 Not Available [facility] 3 22:34:57 Low back pain 470194696 Active 2022 Not Available [facility] 3 22:34:57 Bone spur of right foot 3425725893254 03 Active 2022 Not Available [facility] 3 22:34:57 Type 2 diabetes mellitus 54278134 Active 2022 Not Available [facility] 3 22:34:58 Type 2 diabetes mellitus without complicati on 335724634 Active 2022 Not Available [facility] 3 22:34:57 Essential hypertensi on 53968943 Active 2022 Not Available [facility] 3 22:34:58 Menorrhagi a 444555872 Active 2022 Not Available [facility] 3 22:34:58 Arthritis 6440656 Active 2022 Not Available [facility] 3 22:34:58 Bilateral plantar fasciitis 2572214614441 9108 Active 2022 Not Available [facility] 3 22:34:57 Diabetes mellitus 05480751 Active 2022 Not Available [facility] 3 22:34:58 Congenital pes planus 20340708 Active 2022 Not Available [facility] 3 22:34:57 Congenital pes planus 40550885 Active 2022 Not Available [facility] 3 22:34:57 Calcaneal spur 10112355 Active 2022 Not Available [facility] 3 22:34:58 Eruption 234369727 Active 2022 Not Available [facility] 3 22:34:57 Acute bronchitis 63139820 Active 2022 Not Available [facility] 3 22:34:57 Plantar fasciitis of right foot 4476301814317 9101 Active 2022 Jona Lora DPM [address] [facility], [facility] [address], [place], [address] , [facility] [employer] [facility] 3 17:13:38 Problem Notes None recorded. Procedures Surgical History Date Name Laterality Status Provider Name and Address Organization Details Recorded Time 3 Plantar Fascia Injection Right Foot completed Jona Lora DPM [address] [facility], [facility] [address], [place], [address], [facility] 03/16/2023 17:13:21 3 Colonoscopy completed Priti Driscoll [place] [facility] 11/21/2022 16:07:29 Removal of ovarian cyst(s) completed Priti Driscoll [facility] 09/26/2022 15:47:51 Tubal Ligation completed Priti Driscoll [facility] 09/26/2022 15:48:12 Imaging Results Imaging Date Name Status LastModified by Organiz ation Details LastModified Time 09/26/2022 XR, foot completed [address] (Imaging) [address] [place], [address], 09/27/2022 14:28:18 09/26/2022 XR, lumbar spine completed [address] (Imaging) [address] [place], [address], 09/27/2022 14:28:19 09/29/2022 MAMMO, screening, digital, bilateral completed [address] [facility] [address] [place] [address], [address], 09/29/2022 17:37:14 Procedure Notes None recorded. Medical Equipment None Reported. Allergies No known drug allergies Medications Name Sig Start Date Stop Date Status Note LastModified by Organization Details LastModified Time amoxicillin 500 mg capsule TK ONE C PO Q 8 H FOR 5 DAYS 04/15 completed Not Available Not Available Not Available prednisone 10 mg tablet 09/26 completed Not Available Not Available Not Available ketoconazol e 2 % shampoo active Not Available Not Available Not Available azithromyci n 250 mg tablet TAKE 2 TABLETS BY MOUTH FOR 1 DAY THEN TAKE 1 TABLET BY MOUTH DAILY FOR 4 DAYS 06/26 completed Not Available Not Available Not Available ibuprofen 800 mg tablet TAKE 1 TABLET BY MOUTH EVERY 8 HOURS NEEDED FOR PAIN. TAKE WITH FOOD 09/29 completed Not Available Not Available Not Available fluconazole 150 mg tablet TAKE 1 TABLET BY MOUTH ONCE. MAY REPEAT DOSE IN 3 DAYS NEEDED 06/26 completed Not Available Not Available Not Available sulfamethox azole 400 mg-trimetho prim 80 mg tablet TAKE 1 TABLET BY MOUTH TWICE DAILY 09/26 completed Not Available Not Available Not Available hydrocodone 5 mg-acetamin ophen 325 mg tablet TAKE 1 TO 2 TABLETS BY MOUTH EVERY 6 HOURS NEEDED FOR PAIN 09/26 completed Not Available Not Available Not Available fluconazole 200 mg tablet TAKE 1 TABLET BY MOUTH EVERY OTHER DAY FOR 3 DOSES 09/26 completed Not Available Not Available Not Available phenazopyri dine 200 mg tablet TK 1 T PO TID 04/15 completed Not Available Not Available Not Available metronidazo le 0.75 % (37.5 mg/5 gram) vaginal gel INSERT 1 APPLICATO RFUL VAGINALLY EVERY DAY AT BEDTIME FOR 5 DAYS 06/26 completed Not Available Not Available Not Available famotidine 40 mg tablet TAKE 1 TABLET BY MOUTH TWICE DAILY 09/26 completed Not Available Not Available Not Available clobetasol 0.05 % topical cream SUDHA THIN LAYER EXT AA BID 04/15 completed Not Available Not Available Not Available metronidazo le 500 mg tablet TK 1 T PO Q 12 H FOR 7 DAYS 04/15 completed Not Available Not Available Not Available amlodipine 5 mg tablet Take 1 tablet(s) every day by oral route. active Not Available Not Available No t Available valacyclovi r 500 mg tablet TAKE 2 TABLETS BY MOUTH TWICE DAILY FOR 7 DAYS 09/26 completed Not Available Not Available Not Available ciprofloxac in 500 mg tablet TAKE 1 TABLET BY MOUTH EVERY 12 HOURS 09/26 completed Not Available Not Available Not Available sulfamethox azole 800 mg-trimetho prim 160 mg tablet TAKE 1 TABLET BY MOUTH EVERY 12 HOURS 09/26 completed Not Available Not Available Not Available omeprazole 40 mg capsule,del ayed release TAKE 1 CAPSULE BY MOUTH EVERY DAY active Not Available Not Available No t Available tramadol 50 mg tablet TAKE 1 TABLET BY MOUTH EVERY 6 HOURS 09/26 completed Not Available Not Available Not Available acetaminoph en 500 mg tablet 04/15 completed Not Available Not Available Not Available triamcinolo ne acetonide 0.1 % topical cream APPLY THIN LAYER EXTERNALL Y TO THE AFFECTED AREA TWICE DAILY NEEDED FOR ITCHING 09/26 completed Not Available Not Available Not Available amoxicillin 500 mg tablet TAKE 1 TABLET BY MOUTH TWICE DAILY FOR 10 DAYS 09/26 completed Not Available Not Available Not Available prednisone 10 mg tablets in a dose pack Take 1 tab by mouth, 3 times a day for 3 daysTake 1 tab by mouth 2 times a day for 2 daysTake 1 tab by mouth once a day for 1 day 09/26 completed Not Available Not Available Not Available famotidine 20 mg tablet TK 1 T PO D 04/15 completed Not Available Not Available Not Available DOK 100 mg capsule TK 1 C PO BID PRN FOR CONSTIPAT ION 04/15 completed Not Available Not Available Not Available Kenalog 10 mg/mL suspension for injection In office injection administe red by the provider 09/26 completed [facility]: [phone] Not Available Not Available Not Available cephalexin 500 mg capsule TAKE 1 CAPSULE BY MOUTH FOUR TIMES DAILY FOR 10 DAYS 09/26 completed Not Available Not Available Not Available pantoprazol e 40 mg tablet,nehemias yed release TAKE 1 TABLET BY MOUTH EVERY DAY 06/26 completed Not Available Not Available Not Available erythromyci n 5 mg/gram (0.5 %) eye ointment APPLY A THIN RIBBON TO THE LOWER CONJUNCTI MARIXA SAC IN THE AFFECTED EYE THREE TIMES DAILY 04/20 completed Not Available Not Available Not Available tazarotene 0.1 % topical cream APPLY A PEA SIZED AMOUNT BY TOPICAL ROUTE TO PSORIASIS PATCHES EVERY NIGHT AT BEDTIME 30 DAY SUPPLY 11/15 completed Not Available Not Available Not Available calcipotrie ne 0.005 % topical cream APPLY TOPICALLY TO THE AFFECTED AREA TWICE DAILY active Not Available Not Available No t Available diclofenac sodium 75 mg tablet,nehemias yed release TAKE 1 TABLET BY MOUTH TWICE DAILY NEEDED TAKE WITH FOOD active Not Available Not Available No t Available hydroxyzine HCl 25 mg tablet TAKE 1-3 TABLETS BY MOUTH EVERY NIGHT AT BEDTIME NEEDED ITCH 09/26 completed Not Available Not Available Not Available mupirocin 2 % topical ointment APPLY SMALL AMOUNT TOPICALLY TO THE AFFECTED AREA THREE TIMES DAILY 09/26 completed Not Available Not Available Not Available ergocalcife rol (vitamin D2) 1,250 mcg (50,000 unit) capsule TAKE 1 CAPSULE BY MOUTH EVERY WEEK active Not Available Not Available No t Available clobetasol 0.05 % topical ointment APPLY TOPICALLY TO THE AFFECTED AREAS ON THE LEGS TWICE DAILY AND THE SCALP ONCE DAILY active Not Available Not Available No t Available ibuprofen 600 mg tablet TAKE 1 TABLET BY MOUTH THREE TIMES DAILY NEEDED FOR PAIN 09/26 completed Not Available Not Available Not Available levofloxaci n 750 mg tablet TK 1 T PO QD WF FOR 5 DAYS 04/15 completed Not Available Not Available Not Available methylpredn isolone 4 mg tablets in a dose pack FOLLOW PACKAGE DIRECTION S 06/26 completed Not Available Not Available Not Available albuterol sulfate HFA 90 mcg/actuati on aerosol inhaler INHALE 2 PUFFS BY MOUTH EVERY 4 HOURS NEEDED active Not Available Not Available No t Available clobetasol 0.05 % scalp solution APPLY TO SCALP TWICE DAILY NEEDED active Not Available Not Available No t Available ondansetron 4 mg disintegrat ing tablet DISSOLVE 1 TABLET ON THE TONGUE EVERY 8 HOURS NEEDED FOR NAUSEA OR VOMITING 09/26 completed Not Available Not Available Not Available metformin ER 500 mg tablet,exte nded release 24 hr Take 1 tablet every day by oral route. 2023 active Not Available Not Available Not Avai lable doxycycline hyclate 100 mg tablet TAKE 1 TABLET BY MOUTH TWICE DAILY FOR 7 DAYS 02/27 completed Not Available Not Available Not Available diazepam 5 mg tablet TK 1 T PO TID PRN FOR ANXIETY 04/15 completed Not Available Not Available Not Available amoxicillin 500 mg-potassiu m clavulanate 125 mg tablet TAKE 1 TABLET BY MOUTH EVERY 12 HOURS FOR 7 DAYS 11/21 completed Not Available Not Available Not Available lidocaine (PF) 10 mg/mL (1 %) injection solution In office injection administe red by the provider 09/26 completed [facility]: [phone] Not Available Not Available Not Available FeroSul 325 mg (65 mg iron) tablet TAKE 1 TABLET BY MOUTH THREE TIMES DAILY 11/15 completed Not Available Not Available Not Available ropivacaine (PF) 5 mg/mL (0.5 %) injection solution Take 40 mg by injection route. 09/26 completed Not Available Not Available Not Available Trulicity 1.5 mg/0.5 mL subcutaneou s pen injector ADMINISTE R 1.5 MG UNDER THE SKIN EVERY WEEK 02/27 completed Not Available Not Available Not Available Trulicity 0.75 mg/0.5 mL subcutaneou s pen injector ADMINISTE R 0.75 MG UNDER THE SKIN EVERY WEEK 11/21 completed Not Available Not Available Not Available ID NOW COVID-19 Test Kit TEST DIRECTED TODAY 09/26 completed Not Available Not Available Not Available Trulicity 3 mg/0.5 mL subcutaneou s pen injector ADMINISTE R 3MG UNDER THE SKIN EVERY WEEK 06/26 completed Not Available Not Available Not Available Trulicity 4.5 mg/0.5 mL subcutaneou s pen injector INJECT 4.5 MG EVERY WEEK SUBCUTANE OUSLY 06/26 completed Not Available Not Available Not Available Mounjaro 5 mg/0.5 mL subcutaneou s pen injector ADMINISTE R 5 MG UNDER THE SKIN EVERY WEEK active Not Available Not Available No t Available Vitals Date Recorded Body height Body mass index (BMI) Body weight Body temperature Heart rate Systolic blood pressure Diastolic blood pressure Provider Name and Address Organization Details Last Updated DateTime 3 160.02 cm 54 kg/m2 107608. 67 g 97.8 [degF] 106 /min 150 mm[Hg] 100 mm[Hg] Priti Driscoll [place] [employer] 3 16:23:31 Date Recorded Body height Body mass index (BMI) Body weight Heart rate Respiratory rate Oxygen saturation Oxygen saturation in Arterial blood by Pulse oximetry Provider Name and Address Organization Details Last Updated DateTime 3 160.02 cm 53.1 kg/m2 799068. 71 g 100 /min 16 /min 98 % 98 % Deborah Blue [facility] 3 12:00:43 Date Recorded Body height Body mass index (BMI) Body weight Body temperature Heart rate Oxygen saturation Oxygen saturation in Arterial blood by Pulse oximetry Systolic blood pressure Diastolic blood pressure Provider Name and Address Organization Details Last Updated DateTime 3 160.02 cm 53.7 kg/m2 553841. 49 g 97.9 [degF] 82 /min 99 % 99 % 142 mm[Hg] 84 mm[Hg] Priti Driscoll MA [place] [employer] [facility] 3 16:09:28 Date Recorded Body height Body mass index (BMI) Body weight Body temperature Heart rate Oxygen saturation Oxygen saturation in Arterial blood by Pulse oximetry Systolic blood pressure Diastolic blood pressure Provider Name and Address Organization Details Last Updated DateTime 3 160.02 cm 53 kg/m2 329638. 12 g 97.9 [degF] 78 /min 100 % 100 % 132 mm[Hg] 76 mm[Hg] Priti Driscoll MA [place] [employer] 3 16:08:37 Date Recorded Body height Body mass index (BMI) Body weight Provider Name and Address Organization Details Last Updated DateTime 03/16/2023 160.02 cm 53 kg/m2 298172.12 g Deborah Blue [facility] [employer] 03/16/2023 16:52:32 Social History Question Answer Notes LastModified by Organizat ion Details LastModified Time Tobacco Smoking Status Never Smoker Priti AmericoNOEMI null, [facility] [employer] 09/26/2022 15:45:38 What Is Your Level Of Alcohol Consumption? Occasional Information not available 09/26/2022 What Is Your Level Of Caffeine Consumption? None Information not available 09/26/2022 In The 14 Days Before Symptom Onset, Have You Had Close Contact With A Laboratory-confir med COVID-19 While That Case Was Ill? No Information not available 10/24/2022 In The 14 Days Before Symptom Onset, Have You Had Close Contact With A Person Who Is Under Investigation For COVID-19 While That Person Was Ill? No Information not available 10/24/2022 Are You Currently Employed? Yes Information not available 09/26/2022 What Type Of Diet Are You Following? REGULAR Information not available 09/26/2022 What Is The Highest Grade Or Level Of School You Have Completed Or The Highest Degree You Have Received? [id number] Information not available 09/26/2022 What Is Your Occupation? [place] [employer], [place] Information not available 09/26/2022 Have There Been Any Changes To Your Family Or Social Situation? No Information no t available 09/26/2022 What Is The Fluoride Status Of Your Home? Unknown Information not available 09/26/2022 Are There Any Guns Present In Your Home? No Information not available 09/26/2022 Do You Use Insect Repellent Routinely? Yes Information not available 09/26/2022 Where Do You Live? Located within [facility] Information not available 09/26/2022 What Was The Date Of Your Most Recent Tobacco Screening? 11/21/2022 Information not available 11/21/2022 Do You Have Any Pets? No Information not available 09/26/2022 What Is Your Relationship Status? Single Information not available 09/26/2022 Do You Use Your Seat Belt Or Car Seat Routinely? Yes Information not available 09/26/2022 Do You Have Smoke And Carbon Monoxide Detectors In Your Home? Yes Information not available 09/26/2022 Are You Passively Exposed To Smoke? Yes Information no t available 09/26/2022 Are There Any Smokers In Your House? No Information not available 09/26/2022 Do You Feel Stressed (tense, Restless, Nervous, Or Anxious, Or Unable To Sleep At Night)? [id number] Information not available 09/26/2022 Do You Use Any Illicit Or Recreational Drugs? No Information not available 09/26/2022 Do You Use Sunscreen Routinely? Yes Information not available 09/26/2022 Have You Recently Traveled Abroad? No Information not available 10/24/2022 Do You Have Any Dietary Restrictions? No Information not available 09/26/2022 Do You Or Have You Ever Used Any Other Forms Of Tobacco Or Nicotine? No Information not available 09/26/2022 Sex: Unknown Functional Status Question Answer Note LastModified by Organization D etails LastModified Time What is your exercise level? None Information not available 09/26/2022 Mental Status None recorded. Family History Relationship Description Onset Age of this Age Resolved Age Notes LastModified by Organization Details LastModified Time Unspecified Relation Family history of malignant neoplasm josh iglesias [id number] Not available 08/17/2022 20:55:07 Father Diabetes mellitus [id number] Not available 08/17/2022 20:55:07 Unspecified Relation Diabetes mellitus GRANDM OTHER Not available 11/15/2022 12:10:25 Unspecified Relation Arthritis GRANDM OTHER Not available 11/15/2022 12:10:45 Medical History Condition Response NERVE DISEASE N BLINDNESS N RHEUMATIC FEVER N KIDNEY STONES N BLADDER PROBLEMS N MRSA N OTHER # 1 N POLIO N LUNG DISEASE/DISORDER N HISTORY OF DRUG ABUSE N RADIATION / CHEMOTHERAPY N COPD N Other # 2 N BLOOD DISEASES N EAR OR HEARING PROBLEMS N MUMPS N SHINGLES N DEPRESSION (INCLUDING POST ) N BOWEL PROBLEMS N FAILED BACK SYNDROME N STROKE/TIA N ULCERS N BENIGN PROSTATIC HYPERPLASIA N MEASLES N HYPOTENSION N MYOCARDIAL INFARCTION N OBESITY N GERD/NAUSEA N ANEURYSM N URINARY/BLADDER/KIDNEY PROBLEMS N CORONARY ARTERY DISEASE (CAD) N Do you have Advance directive? N ADDICTION CONCERNS N Impotence N ENDOMETRIOSIS N USE OF BLOOD THINNERS N SKIN PROBLEMS N GASTROINTESTINAL DISORDER N PERIPHERAL VASCULAR DISEASE N MUSCLE,JOINT OR BONE PROBLEMS N GASTROINTESTINAL BLEEDING N BLOOD CLOTS N ASTHMA N CATARACTS N Abdominal Pain N ERECTILE DYSFUNCTION N ARTERIAL INSUFFICIENCY N VARICOSITIES N GI PROBLEMS N Low Testosterone N INFERTILITY N AIDS/HIV N CHEMOTHERAPY / RADIATION N LIVER DISEASE N MALE HYPOGONADISM N HYPERTENSION N Deficiency N TOURETTE'S N ANXIETY DISORDER N BLOOD TRANSFUSION N ANEMIA/BLOOD DISORDER Y CHRONIC EAR INFECTIONS N TUBERCULOSIS N GLAUCOMA N FOOT PROBLEM N DIVERTICULITIS N SLEEP APNEA N CHICKENPOX N ALLERGIES/HAYFEVER N BACK INJECTIONS N INFECTIOUS DISEASE N PROSTATE N HEART ARRHYTHMIA N ESRD N INSOMNIA N HIGH CHOLESTEROL / HYPERLIPIDEMIA N EYE PROBLEMS N HYPERTHYROIDISM N PVD N EDEMA N CHRONIC PAIN SYNDROME N HYPOTHYROIDISM N CAROTID BLOCKAGE N CONSTIPATION N BACK / NECK PROBLEMS N HAVE YOU BEEN HOSPITALIZED OR SEEN IN [facility] IN THE PAST YEAR ? N ATHEROSCLEROSIS N BREAST PROBLEMS N DIALYSIS N POLYCYSTIC OVARIES N ECZEMA N OSTEOPOROSIS N ARTHRITIS Y NO SIGNIFICANT PAST MEDICAL HISTORY N APPENDICITIS N DIABETES, TYPE Y BAD TEETH N VON WILLIBRAND'S DISEASE N ENT N HEARTBURN / REFLUX N GI N AUTISM SPECTRUM DISORDER (ASD) N POST LAMINECTOMY SYNDROME N HEPATITIS / LIVER DISEASE N GOUT N SLEEP DISORDER N ALZHEIMER'S DISEASE N Brain Problems N DEMENTIA N HERPES N SEIZURES/EPILEPSY N HEADACHES/MIGRAINES N VASCULAR DISEASE N PACEMAKER N DIZZINESS N HEART DISEASE/HEART PROBLEMS N KIDNEY DISEASE N MULTIPLE SCLEROSIS N NEUROPSYCHOLOGICAL N CANCER: SPECIFY N CARDIAC ARRHYTHMIA N ATRIAL FIBRILLATION N Gall Stones N PULMONARY EMBOLISM N AUTOIMMUNE DISEASE N Gynecological HistoryNo gynecological history recorded. Obstetrics History GPAL:G 0 P 0 0 0 0 Past Encounters Encounter ID Performer Location Encounter Start Date Encounter Closed Date Diagnosis/Indication Diagnosis SNOMED-CT Code Diagnosis ICD10 Code Diagnosis Note [id number] [facility] [address] [address] 04/20/2021 00:00:00 04/20/2021 10:18:50 [id number] [facility] [place] [address] [facility] [address] [address] 05/27/2021 00:00:00 05/27/2021 09:27:15 [id number] [facility] [address] [address] 06/01/2021 00:00:00 06/01/2021 09:38:40 [id number] [facility] [place] [address] [facility] [address] [address] 02/14/2022 00:00:00 02/14/2022 10:04:20 [id number] SHERLEY De Los Santos [facility] Internal Med [facility] [address] [facility], [facility] [address] [place] [address] 09/26/2022 15:31:16 09/26/2022 16:25:34 Iron deficiency anemia 58831332 D50.9 On iron supplement Check labs Check EGD and C scope If levels are still low, will plan for Hematology referral for iron infusion Weight gain 8627711 R63. 5 Check labsShe is interested in Trulicity if we can get it covered by her insurance/ if she is insulin resistant or prediabeti c We discussed GLP-1 agonist mechanism of action and how to mitigate side effects. Patient denies any personal or family history of MEN II, MTC or an personal history of pancreatit is. Patient is aware to call office with any severe abdominal pain or n/v, or any thyroid pain or swelling. We discussed dosing schedule and storage. Patient was shown how to use the medication on a [employer] device. [employer] sudha recommende d to track foods. Over 60 min spent with patient, over half spent on counseling Hyperlipid emia screening 968350261 Z13.220 Screening for disorder 856813166 Z13.9 Chronic low back pain 27 8945749 M54.50 Check x-ray, further plan based on results Will likely refer her to physical therapy Pain in right heel 73054 27709 677951 M79.671 Check x-ray, further plan based on results Will likely refer her to Podiatry Gastroesop hageal reflux disease without esophagitis 862640244 K21.9 Restart pantoprazo le Lifestyle measures to reduce acid discussed EGD referral as above Psoriasis 8702247 L40.9 follows dermatolog y- Dr. Sofie Dia at [facility] Elevated blood-pressure reading without diagnosis of hypertension 680689539 R03.0 Recommend she get home BP cuff, bring log to next appointmen t Family his tory of cancer of colon 375532941 Z80.0 Cscope ordered as above Morbid obesity 607583428 E66.01 recommend healthy, well balanced mealsfocus on lean meats, fresh vegetables , fresh fruits, whole grainsredu ce fast/proce ssed foods or eating out to no more than 1-2 times per weekaim to get 30 min of exercise most days of the week- walking is a great choicealso recommend resistance training 2-3 times per week [id number] BENTLEY De Los Santos-Anastasiya [facility] Internal Med [facility] [address] [facility], [facility] [address] [place] [address] 10/24/2022 16:14:52 10/24/2022 16:40:54 Iron deficiency anemia 87540580 D50.9 On PO iron supplement Check EGD and C scope- has scheduled for MondayHas been referred to Hematology -Dr. Lamar- she is calling them later today to schedule appt- will need iron infusionsE R precaution s if symptomati c/any blood loss Chronic low back pain 27 3854711 M54.50 s/p XRHas been referred to PT Pain in right heel 10135 30647 542842 M79.671 s/p XRhas upcoming appt with podiatry Gastroesop hageal reflux disease without esophagitis 384826828 K21.9 switch from protonix to omeprazole as she felt that worked betterLife style measures to reduce acid discussedE GD referral as above Psoriasis 4249201 L40.9 follows dermatolog y- Dr. Sofie Dia at [facility] Family his tory of cancer of colon 212086832 Z80.0 Cscope ordered as above Morbid obesity 072036083 E66.01 recommend healthy, well balanced mealsfocus on lean meats, fresh vegetables , fresh fruits, whole grainsredu ce fast/proce ssed foods or eating out to no more than 1-2 times per weekaim to get 30 min of exercise most days of the week- walking is a great choicealso recommend resistance training 2-3 times per week Type 2 carlyle betes mellitus without complication 828726658 E11.9 On metformin, increase Trulicity pt is aware of side effects, risks, benefitspt denies any personal or family history of MEN II or MTC, denies and personal history of pancreatit ispt knows to call the office if any severe n/v or abdominal pain Essential hypertension 57148076 I10 Start amlodipine Keep BP log at home-she will call in 1 week with readings ER precaution s Menorrhagia 533413222 N9 2.0 Has upcoming appointmen t with design coordinator to discussed hysterecto my [id number] Jona Lora DPM [facility] Podiatry [address], [facility] [address] [place] [address] 11/15/2022 11:55:41 11/15/2022 12:40:26 Diabetes mellitus 07421253 E11.40 Patient educated on neuropathy , diabetes, diabetic diet, and daily foot exams. Patient is to check feet daily for new wounds, blisters, redness to prevent infection and ulceration s to the feet. Patient will return to clinic in 3 months for diabetic foot workup. Bilateral plantar fasciitis 9896933556 8000999 M72.2 Stretching and icing instructio ns reviewedEd ucated on supportive shoe gearRice therapyedu cated on over-the-c ounter supportive inserts Congenital pes planus 23 961056 Q66.51 Q66.52 as aboverecom mend [employer] or [place] [facility] ight foot x-rays reviewed with the patient Calcaneal spur 95506581 M77.31 x-rays reviewed [id number] SHERLEY De Los Santos [facility] Internal Med [facility] [address] [facility] [place] [address] 11/21/2022 15:57:50 11/21/2022 16:29:32 Iron deficiency anemia 44698850 D50.9 now following hematology - Dr. Lamar at [facility] iron infusionsi s s/p EGD and CscopeER precaution s if symptomati c/any blood loss Chronic low back pain 27 8413157 M54.50 s/p XRon diclofenac prn- she is aware of side effects, risks, benefitsHa s been referred to PT- get appt at [facility] as they take her insurance Pain in right heel 22986 19699 990725 M79.671 s/p XRfollowin g podiatry- Dr. Lora Gastroesop hageal reflux disease without esophagitis 354170025 K21.9 switch from protonix to omeprazole as she felt that worked betterLife style measures to reduce acid discusseds /p EGD 10/2022 Psoriasis 0140170 L40.9 follows dermatolog y- Dr. Sofie Dia at [facility] Family his tory of cancer of colon 107730208 Z80.0 s/p Cscope 10/2022repe at 4 years 10/2027 Morbid obesity 441812011 E66.01 recommend healthy, well balanced mealsfocus on lean meats, fresh vegetables , fresh fruits, whole grainsredu ce fast/proce ssed foods or eating out to no more than 1-2 times per weekaim to get 30 min of exercise most days of the week- walking is a great choicealso recommend resistance training 2-3 times per week Type 2 carlyle betes mellitus without complication 236050881 E11.9 On metformin, increase Trulicity pt is aware of side effects, risks, benefitspt denies any personal or family history of MEN II or MTC, denies and personal history of pancreatit ispt knows to call the office if any severe n/v or abdominal pain Essential hypertension 64693118 I10 on amlodipine Keep BP log at home-she will call in 1 week with readingsER precaution s Menorrhagia 025845918 N9 2.0 Has upcoming appointmen t with design coordinator to discussed hysterecto my Adult heal th examination 385264790 Z00.01 Depression screening 171 848478 Z13.31 [id number] Caitlyn Jiang, YARD OPERATOR-C [facility] Internal Med [facility] [address] [facility], [place] [address] [place] [address] 02/27/2023 15:52:30 02/27/2023 16:34:54 Iron deficiency anemia 24119790 D50.9 now following hematology - Dr. Lamar at [facility] iron infusionsi s s/p EGD and CscopeER precaution s if symptomati c/any blood lossfollow s up again with them later this month Chronic low back pain 27 9424498 M54.50 s/p XRon diclofenac prn- she is aware of side effects, risks, benefitsHa s been referred to PT- get appt at [facility] as they take her insurance Pain in right heel 17966 61242 611025 M79.671 s/p XRfollowin g podiatry- Dr. Lora Gastroesop hageal reflux disease without esophagitis 874556529 K21.9 switch from protonix to omeprazole as she felt that worked betterLife style measures to reduce acid discusseds /p EGD 10/2022 Psoriasis 3814293 L40.9 follows dermatolog y- Dr. Sofie Dia at [facility] Family his tory of cancer of colon 209380452 Z80.0 s/p Cscope 10/2022repe at 4 years 10/2027 Morbid obesity 138553426 E66.01 recommend healthy, well balanced mealsfocus on lean meats, fresh vegetables , fresh fruits, whole grainsredu ce fast/proce ssed foods or eating out to no more than 1-2 times per weekaim to get 30 min of exercise most days of the week- walking is a great choicealso recommend resistance training 2-3 times per week Type 2 carlyle betes mellitus without complication 997965774 E11.9 On metformin, increase Trulicity pt is aware of side effects, risks, benefitspt denies any personal or family history of MEN II or MTC, denies and personal history of pancreatit ispt knows to call the office if any severe n/v or abdominal pain Essential hypertension 74412659 I10 on amlodipine Menorrhagia 713346842 N9 2.0 get another appt with LARD MAKER to discuss options- possibly an ablation? Acute bronchitis 8625283 2 J20.9 Start Z-Jh, Medrol Dosepak, p.r.n. albuterolC all office if no improvemen t after meds [id number] Jona Lora DPM [facility] Pod[facility]ry [facility] [address] [facility] [address] [place] [address] 03/16/2023 16:46:11 03/21/2023 10:37:00 Plantar fasciitis of right foot 4063863009 7270550 M72.2 Injection right plantar heelrice therapy, reviewedSt retching and icing instructio ns reviewedre commend supportive shoe gear such as new balance shoes needed to [employer] Powerstep orthoticsm onitor for signs of infection post injection at present seek medical attention immediatel yFollow-up 1 month at that time physical therapy if not improved Health Concerns Section Related Observation LastModified by Organization Detai ls LastModified Time None Recorded Concern Status LastModified by Organization Details LastModified Time None Recorded Advance Directives Directive None Recorded Payers Encounter Date Sequence Insurance Name Policy Number Policy Bowles Covered Member ID Bowles Member ID Guarantor Name 10/24/2022 1 [employer] [place] [id number] Brenden Gutierrez [id number] Brenden Gutierrez 11/15/2022 1 [employer] [place] [id number] Brenden Gutierrez [id number] Brenden Gutierrez 11/21/2022 1 [facility] (MEDICAID HMO) [id number] Brenden Gutierrez [id number] Brenedn Gutierrez 02/27/2023 1 [employer] [place] [id number] Brenden Gutierrez [id number] Brenden Gutierrez 03/16/2023 1 [employer] [place] [id number] Brenden Gutierrez [id number] Brenden Gutierrez Notes Date Note Type Note Provider Name and Address Organization Details Recorded Time 10/24/2022 text/html Brenden presents today for follow up. Her hemoglobin was 7.6. We did refer her out to the livestock nutritionist. She has been on oral iron 3 times a day for years and has always had low blood count she tells me. She has never been sent to the livestock nutritionist. She is very fatigued and overall feels very tired. She does have heavy menses. She does have an upcoming appointment with her director multimedia to discuss a hysterectomy. She tells me she plans on calling the livestock nutritionist today to get her appointment scheduled. Her blood pressure is quite elevated today. She tells me she has been having headaches at work. It was elevated last visit as well, though it is higher today. Today she is asymptomatic with that. She denies any chest pain, shortness of breath, or neuro symptoms. We also discovered she is diabetic. We started her on metformin Trulicity. She is tolerating both of these well. She has been noticing some improvement in her cravings and her portion control but she does feel like the medication wears off towards the end of the week. She is interested in going up on the dose. We also trialed her on pantoprazole for the GERD. She feels like it does not work as well as the omeprazole would like to change back to the omeprazole. She has her EGD and her colonoscopy scheduled for Monday. She is getting ready to start physical therapy for her back pain. She has an upcoming appointment with Podiatry for her foot. Caitlyn Jiang, YARD OPERATOR-C [address], [address], [facility] [employer] 10/24/2022 17:28:27 11/15/2022 text/html . Patient is a 37-year-old female who presents the office with complaints of pain to bilateral heels. Patient states when she is walking or standing she has more pain. Patient states that she recently obtained a new job at [employer]. Patient states that when she is walking she has a sharp pain that she gets after standing. Patient denies any injury to the feet. Patient states after she is walking it does improve but then becomes a throbbing achy sensation after she has been on her feet. Patient denies any treatment for this issue. Patient denies any signs of infection. Patient is a recently new found diabetic and is on treatment. Patient states that she also has numbness and tingling that is intermittent in her feet. Patient denies any history of wounds. Patient denies any other complaints. Jona Lora DPM [address], [place], [address], [facility] [employer] [facility] [employer] 11/15/2022 12:28:14 11/21/2022 text/html Brenden presents today for follow up. She is also due for annual wellness exam. She did see Hematology and had her 1st iron infusion last Monday. She goes back again for another iron infusion this week. Last visit, we increased her Trulicity to the 1.5 mg dose. She has noticed it is starting to help with her cravings and portion control but she is still struggling. She denies any side effects. She would like to try an increase in dose. We had also started her on amlodipine for the blood pressure. She has been tolerating that without issue. Blood pressures been well controlled at home. She did get an appointment with her design coordinator to discuss the menorrhagia. She has an appointment later this month with them. She did have her colonoscopy and EGD. Heartburn is improved on the omeprazole. She saw Podiatry for her bilateral foot pain. He has her doing some exercises and she has to get some inserts. She follows up with them again next month. Her back pain is improved with the diclofenac. She was not able to start physical therapy due to her insurance issues at [facility]. we were trying to get her to be able to do her physical therapy at her workplace. She needs a new referral locally. She is going to need intermittent FMLA to cover her job for those appts. She denies any bladder bowel changes, denies any saddle paresthesias, denies any numbness or tingling into the extremities. SHERLEY De Los Santos [address], [facility] [address], [place], [address], [employer] [facility] [employer] 11/21/2022 17:04:39 02/27/2023 text/html Brenden presents today for follow up. She has finished her iron infusions with Hematology. She follows back up with them later this month. She did see design coordinator to discuss hysterectomy. Apparently the design coordinator did not feel like that was best for her situation. It does not sound like her design coordinator realized how low her hemoglobin had gotten her how how bad her periods were. I had suggested seeing another design coordinator for 2nd opinion, but she would like her records sent over to her current design coordinator to see feel maybe consider an ablation. She reports she is doing well on the Trulicity. She has noticed some more cravings return and would like to go up on the dose. She is tolerating it without issue. She does not normally check her blood sugars at home. She has been having some bronchitis symptoms for about a week. She reports wheezing, cough and tightness in her chest. She used to have an albuterol inhaler but she does not have 1 currently. She did take a whole COVID test which was negative. She is coughing up some yellow sputum. She denies any fever and denies any shortness of breath. She denies any chest pain. BENTLEY De Los Santos-Anastasiya [address], [facility] [address], [place], [phone], [facility] 02/27/2023 17:12:42 03/16/2023 text/html . Patient is a 37-year-old female who presents the office with complaints of right heel pain. Patient states she has been trying to do some at-home therapy but states it has not significantly improved. Patient states she has had some improvement but continues have pain after she is standing or walking. Patient denies any injury or signs of infection to the area. Patient states when she is at rest it does feel better. Patient denies any other complaints. Jona Lora DPM [address], [address], [place], [phone], [facility] 03/20/2023 08:55:17 OBGyn Episode No OBEpisode recorded.
--- OUTSIDE RECORDS SUMMARY | 2024-10-09 16:45 | XMS_ITS | Clinical Summary ---
Author Organization [facility] Address [address] 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 This disclosure is being madepursuant to the Care Everywhere program and may not contain all information available regarding this patient. Last updated 18.[facility] Allergies Active Allergy Reactions Criticality Noted Date Comments Adhesive Sensitivity Rash Medium 09/03/2021 Electrode sensitivity; cloth tape Iron Dextran Itching,Shortness of Breath,Wheezing High 09/22/2023 Medications * Be aware that medications may not be up to date on this document. Alwaysverify current medications with the patient. ibuprofen (MOTRIN) 800 MG tablet Take 1 (one) tablet by mouth 8 Active FEROSUL 325 (65 Fe) MG tablet TK 1 T PO TID 0 Active famotidine (PEPCID) 20 MG tablet Take 20 mg by mouth once daily 8 Active estradiol (Estrace) 2 MG tablet Take 1 (one) tablet by mouth once daily 4 Active meloxicam (Mobic) 15 MG tablet Take 1 (one) tablet by mouth once daily Active ketoconazole (Nizoral) 2 % shampooIndicat ions:Other seborrheic dermatitis APPLY TO WET HAIR, LEAVE ON FOR 3 MINUTES, THEN RINSE. USE UP TO ONCE DAILY 120 mL 11 4 Active calcipotriene (Dovonex) 0.005 % creamIndicatio ns:Other psoriasis Apply to affected area, twice daily. 120 g 5 Active clobetasol (Temovate) 0.05 % ointmentIndica tions:Other psoriasis Apply to affected area on legs BID and on scalp once daily . 30 day supply. 60 g 5 Active Adalimumab-adb m (Cyltezo-Psori asis/UV Starter) 40 MG/0.4ML AJKTIndication s:Psoriasis Inject 40 mg subcutaneously as directed Inject 80 mg sc on day one then 40 mg sc every 2 weeks starting on day 8 1 Each 5 Active Adalimumab-adb m (Cyltezo, 2 Pen,) 40 MG/0.4ML AJKTIndication s:Psoriasis Inject 40 mg subcutaneously every 14 days 1 Each 11 5 Active Adalimumab-adb m (Cyltezo, 2 Pen,) 40 MG/0.4ML AJKTIndication s:Psoriasis Inject 40 mg subcutaneously every 14 days 1 Each 11 5 Active Adalimumab-adb m (Cyltezo-Psori asis/UV Starter) 40 MG/0.4ML AJKTIndication s:Psoriasis Inject 40 mg subcutaneously as directed 1 kit: Inject 80 mg sc on day one then 40 mg sc every 2 weeks starting on day 8 1 Each 5 Active Active Problems Problem Noted Date Diagnosed Date Psoriasis 02/06/2020 Polyarthralgia 02/06/2020 Rheumatoid arthritis 09/04/2012 Overview (03/10/2020): Rheumatoid arthritis Unknown and unspecified causes of morbidity 08/17 Overview (03/10/2020): High risk medication use Encounters Date Type Department Care Team Description 09/23/2024 Refill [facility] - Dermatology [address] [place] [phone] Sofie Dia PA Refill Request 08/22/2024 Telephone [facility] - Centralized Scheduling [facility] [place] [phone] Sofie Dia PA 07/26/2024 Telephone [facility] - Dermatology [address] [place] [phone] Sofie Dia PA LABS ONLY from Last 3 Months Family History Medical History Relation Name Comments Diabetes - Type 2 Father Cancer - Prostate Paternal Grandfather Lupus Paternal Grandmother psoriasis Asthma Neg Hx CVA Neg Hx Cancer - Breast Neg Hx Cancer - Other Neg Hx Cancer - Skin, Melanoma Neg Hx Cancer - Skin, Non Melanoma Neg Hx Eczema Neg Hx Hemophilia Neg Hx Psoriasis Neg Hx Relation Name Status Comments Father Paternal Grandfather Paternal Grandmother psoriasis Social History Tobacco Use Types Packs/Day Years [...] Sign Reading Time Taken Comments Blood Pressure 136/90 09/03/2021 12:00 PM CDT Pulse 57 09/03/2021 12:00 PM CDT Temperature 36.5 C (97.7 F) 09/03/2021 11:30 AM CDT Respiratory Rate 21 09/03/2021 12:0 0 PM CDT Oxygen Saturation 99% 09/03/2021 12: 00 PM CDT Inhaled Oxygen Concentration - - Weight 142.3 kg (313 lb 12.8 oz) 09/03/2021 8:33 AM CDT Height 157.5 cm (5' 2 ) 09/03/2021 8:33 AM CDT Body Mass Index 57.39 09/03/2021 8:33 AM CDT Plan of Treatment Upcoming Encounters Date Type Department Care Team (Late st Contact Info) Description 11/04/2024 2:30 PM CDT Office Visit [facility] - Dermatology [address] [place] [phone] Sofie Dia, PA [address] [facility] [address] [place] [phone] Health Maintenance Due Date Last Done Comments LIPID TESTING 1984 PAP SMEAR 1984 HIV SCREENING 1999 DTAP/TDAP/TD VACCINES (1 - Tdap) 2003 HEPATITIS B VACCINE (1 of 3 - 19+ 3-dose series) 2003 COVID-19 VACCINE (2023-2 5 season) 2024 09/30/2020, 08/29/2020 DEPRESSION SCREENING 06/19/2024 MAMMOGRAM 09/29/2024 09/29/2022, 09/29/2022 ZOSTER VACCINE (1 of 2) 2034 HEPATITIS C SCREENING Completed 02/06/2020 INFLUENZA VACCINE Completed 04/30/2024, 05/09/2023 HIB VACCINE Aged Out No longer eligi ble based on patient's age to complete this topic HPV VACCINE Aged Out No longer eligi ble based on patient's age to complete this topic MENINGOCOCCAL (Group B) VACCINE SHARED DECISION-MAKING Aged Out No longer eligible based on patient's age to complete this topic MENINGOCOCCAL GROUPS A/C/Y/W VACCINE Aged Out No longer eligible b ased on patient's age to complete this topic PNEUMOCOCCAL VACCINE Aged Out No long er eligible based on patient's age to complete this topic Procedures Procedure Name Priority Date/Time Associated Diagnosis Comments HEPATITIS C ANTIBODY Routine 02/06/2020 2:31 PM CDT Polyarthralgia from Last 3 Months or Most Recently Relevant to Health Maintenance Results * HEPATITIS C ANTIBODY (02/06/2020 2:31 PM CDT) Hepatitis C Antibody Non-react ana Non-reac tive 02/06/2020 5:55 PM CDT [facility] Comment:Hepatitis C Antibody screen indicates no serologic evidence of past or current infection with Hepatitis C Virus. Patients with unexplained liver disease who are immunocompromised or suspected of having acute Hepatitis C infection may benefit from Nucleic Acid Test (MUKUND) for Hepatitis C Viral RNA to confirm Hepatitis C status. Blood BLOOD SPECIMEN / Unknown Lab Venipuncture / Unknown 02/06/2020 2:31 PM CDT 02/06/2020 3:58 PM CDT Carmenza Kapadia MD LAB - CHEMISTRY ORDERABLES Fi nal Result [address] [phone], [facility] [phone] from Last 3 Months or Most Recently Relevant to Health Maintenance Insurance 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
--- OUTSIDE RECORDS SUMMARY | 2024-10-09 16:45 | XMS_ITS | Data Portability ---
Author Organization [facility] Address [address] [place] [address] [place] [address] Care Team Providers Care Client Sales And Service Officer Name Role Phone NAKUL APONTE Primary Care Provider Assessment No assessment recorded. Plan of Treatment Reminders Order Date Submit Date Provider Last Modified By Organization Details Last Modified Time Details Appointments None recorded. Lab urinalysis, dipstick 2023 024 [email or web address] [place], [address], [address], [place], [address], 4 16:18:01 Referral None recorded. Procedures None recorded. Surgeries total hysterectom y, laparoscopi c, with bilateral salpingo-oo phorectomy (SURG) [address] [facility], [address], [place], [address], 4 10:30:17 Imaging None recorded. Medication Orders estradiol 2 mg tablet 2023 024 [facility][id number], [address], [place], [place], [id number], 4 12:55:35 zolpidem 10 mg tablet 2023 024 [facility][id number], [address], [place], [place], [id number], 4 14:30:03 oxybutynin chloride ER 10 mg tablet,exte nded release 24 hr 2023 024 [email or web address] [facility][id number], [address] , [place], [place], [id number], 4 14:40:31 Cipro 500 mg tablet 2023 024 MELONIE [facility] #[id number], [address], [place], [place], [id number], 4 14:08:31 estradiol 0.1 mg/24 hr weekly transdermal patch 2023 [email or web address] [facility] #[id number], [address], [place], [place], [id number], 12:36:42 Patient TargetsNo targets recorded. Patient InstructionsNo instructions recorded. Reason for Referral None Reported. Results Created Date Observation Date Name Description Value Unit Range Abnormal Flag Note LastModifiedBy Organization Detail LastModifiedTime 11/30/1911/30/2023 VAGIN ITIS/ VAGIN OSIS, DNA PROBE pedro sp. detection, direct probe Negati ve negati ve Not Available [facility] (Lab) [address] [place], [address], 12/01/2023 14:17:29 11/30/19 24 11/30/2023 VAGIN ITIS/ VAGIN OSIS, DNA PROBE gardnerella vag. detection, direct probe Positi ve negati ve abnormal Not Available [facility] (Lab) [address] [place], [address], 12/01/2023 14:17:29 11/30/19 24 11/30/2023 VAGIN ITIS/ VAGIN OSIS, DNA PROBE trichomonas vag. detection, direct probe Negati ve negati ve Not Available [facility] (Lab) [address] [place], [address], 12/01/2023 14:17:29 11/30/19 24 11/30/2023 CT/GC AND TRICH OMONA S VAGIN AUDREY (RRNA ), SWAB chlamydia trachomatis, PCR Negati ve negati ve Not Available [facility] (Lab) [address] [facility], [place], [address], 12/01/2023 14:17:30 11/30/19 24 11/30/2023 CT/GC AND TRICH OMONA S VAGIN AUDREY (RRNA ), SWAB neisseria gonorrhoeae, PCR Negati ve negati ve Not Available [facility] (Lab) [address] [facility] [facility], [place], [address], 12/01/2023 14:17:30 11/30/19 24 11/30/2023 CT/GC AND TRICH OMONA S VAGIN AUDREY (RRNA ), SWAB trichomonas vaginalis ribosomal RNA (rrna) Negati ve negati ve Not Available [facility] (Lab) [address] [facility] [facility], [place], [address], 12/01/2023 14:17:30 11/30/19 24 11/30/2023 HEPAT ITIS B SURFA CE ANTIG EN hepatitis B surface antigen Non-re active non-re active This assay was perfo rmed using [employer] n reage nts and test kits. Value s obtai jose a with other assay metho ds or kits canno t be used inter ornelas eably . Not Available [facility] (Lab) [address] [facility] [facility], [place], [address], 12/01/2023 23:04:13 11/30/19 24 11/30/2023 HIV 1/2 ANTIG EN/AN TIBOD Y, REFLE X CONFI RMATI ON HIV antigen/anti body Nonrea ctive nonrea ctive HIV-1 antig en and HIV-1 /HIV- 2 antib odies were not detec thomas. No labor atory evide nce of HIV infec tion. Not Available [facility] (Lab) [address] [facility] [facility], [place], [address], 12/01/2023 23:04:14 11/30/19 24 11/30/2023 HEPAT ITIS C ANTIB HALI SCREE N, REFLE X TO CONFI RMATI ON hepatitis C antibody Non-re active non-re active Antib odies to HCV Not Detec thomas, does not exclu de the possi bilit y of expos ure to HCV. Not Available [facility] (Lab) [address] [facility], [place], [address], 12/01/2023 23:04:14 11/30/19 24 11/30/2023 RPR SCREE N, REFLE X TITER /CONF IRMAT ION RPR screen Nonrea ctive nonrea ctive Not Available [facility] (Lab) [address] [facility] [facility], [place], [address], 12/01/2023 23:04:14 11/30/19 24 11/30/2023 HEPAT ITIS B CORE, IGM hepatitis B core IgM antibody Negati ve negati ve Not Available [facility] (Lab) [address] [facility] [facility], [place], [address], 12/01/2023 23:04:15 11/30/19 24 11/30/2023 CULTU RE: URINE result report SEE RESULT S BELOW Test: Cultu re: Urine Speci men Sourc e: Urine - Clean Catch Speci men Type: Urine Speci men Date: 2023 5:58 PM Resul t Date: 2023 2:46 AM Resul t Statu s: Final resul t Abnor mal: No Resul ting Lab: [facility] [address] [facility] [address] Tel: CULTU RE ----- ----- ----- --- Cultu re resul t (>=3 organ isms prese nt) indic ates possi ble conta minat ion. Repea t cultu re if sympt oms indic ate. Not Available [facility] (Lab) [address] [facility], [place], [address], 12/02/2023 03:50:48 11/30/19 24 11/30/2023 urina lysis , dipst ick Leukocytes + Not Available [facility] [address], [place], [address], 11/30/2023 17:24:16 11/30/19 24 11/30/2023 urina lysis , dipst ick Blood + Not Available [facility] [address], [place], [address], 11/30/2023 17:24:16 11/30/19 24 11/30/2023 pregn craig test, urine HCG negati ve Not Available [facility] [address], [place], [address], 11/30/2023 17:24:12 02/21/20 24 02/21/2024 CULTU RE: URINE result report SEE RESULT S BELOW Test: Cultu re: Urine Speci men Sourc e: Urine - Clean Catch Speci men Type: Urine Speci men Date: 1634 Resul t Date: 0250 Resul t Statu s: Final resul t Abnor mal: No Resul ting Lab: [facility] [address] [facility] [address] Tel: CULTU RE ----- ----- ----- --- No growt h in 1 day (dete ction level of 10,00 0 colon ies / ml.) Not Available [facility] (Lab) [address] [facility], [place], [address], 02/23/2024 03:54:10 02/21/20 24 02/21/2024 urina lysis , dipst ick Leukocytes + Not Available [facility] [address], [place], [address], 02/21/2024 16:10:39 02/21/20 24 02/21/2024 urina lysis , dipst ick Protein + Not Available [facility] [place] [address], [place], [address], 02/21/2024 16:10:39 02/21/20 24 02/21/2024 urina lysis , dipst ick pH 5 Not Available [facility] [address], [place], [address], 02/21/2024 16:10:39 02/21/20 24 02/21/2024 urina lysis , dipst ick Ketone + Not Available [facility] [address], [place], [address], 02/21/2024 16:10:39 03/04/20 24 03/04/2024 CULTU RE: URINE result report SEE RESULT S BELOW Test: Cultu re: Urine Speci men Sourc e: Urine - Clean Catch Speci men Type: Urine Speci men Date: 2023 1555 Resul t Date: 2023 0542 Resul t Statu s: Final resul t Abnor mal: No Resul ting Lab: [facility] [address] [facility] [address] Tel: CULTU RE ----- ----- ----- --- No growt h in 1 day (dete ction level of 10,00 0 colon ies / ml.) Not Available [facility] (Lab) [address] [facility], [place], [address], 03/06/2024 06:45:57 12/04/19 24 12/04/2023 US, pelvi s No observ ation record ed. [email or web address] [facility] [address], [place], [address], 12/04/2023 18:13:55 12/04/19 24 12/04/2023 US, trans vagin al No observ ation record ed. [email or web address] [facility] [place] [address], [place], [address], 12/04/2023 18:13:44 12/04/19 24 12/04/2023 US, pelvi s No observ ation record ed. MELONIE [address], [place], [address], 12/08/2023 11:35:14 02/12/20 24 02/07/2024 rhyth m strip , EKG* No observ ation record ed. [address] [facility], [place], [address], 02/12/2024 20:19:26 02/13/20 24 02/13/2024 cardi ac stres s test No observ ation record ed. [address] [facility] [address], [place], [address], 02/13/2024 22:04:10 02/14/20 24 02/14/2024 XR, abdom en + pelvi s No observ ation record ed. [address] [facility], [place], [address], 02/14/2024 22:05:52 02/26/20 24 02/26/2024 XR, chest No observ ation record ed. [address] [facility], [place], [address], 02/26/2024 21:08:03 02/26/20 24 02/26/2024 fluid colle ction drain age by bela doll; perit bonilla or retro perit bonilla , percu taneo us with image gary topete (PROC ) No observ ation record ed. [address] [facility], [place], [address], 02/26/2024 21:12:47 02/26/20 24 02/26/2024 US, renal No observ ation record ed. [address] [facility], [place], [address], 02/27/2024 22:43:14 Result Notes None recorded. Problems Name Problem SNOMED Code Status Onset Date Resolution Date Notes Provider Name and Address Organization Details Recorded Time Prediabetes 071313904 Active 2023 Carline hernandez, [facility] 4 17:12:12 Hypertensive disorder 03190798 Active 2023 Carline hernandez, [facility] 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 4 17:12:29 Problem Notes None recorded. Procedures Surgical History Date Name Laterality Status Provider Name and Address Organization Details Recorded Time 02/14/20 24 Total Hysterectomy completed Hazel Smart [facility] 03/04/2024 14:09:30 02/14/20 24 HYSTEROSCOPY, WITH ENDOMETRIAL ABLATION (SURG) completed Marina Baez [facility] 02/14/2024 09:40:45 02/14/20 24 HYSTEROSCOPY, WITH ENDOMETRIAL ABLATION (SURG) completed Lilian Connor [facility] 02/14/2024 11:07:39 09/06/19 24 Colposcopy completed Guillermo Zavala MD [address], [place], [address], [facility] 09/06/2023 16:55:56 08/07/19 24 Date of Last Pap Smear completed Carline Estrada [facility] 08/07/2023 17:12:42 12/11/19 23 I&D completed Guillermo Zavala MD [address], [place], [address], [facility] 12/10/2022 11:07:44 06/02/20 21 LAPAROSCOPIC OVARIAN CYSTECTOMY (SURG) completed Soco Helms [facility] 06/03/2021 11:03:55 10/24/19 21 Colposcopy completed Clarissa Mckeon CNM [address], [place], [address], [place] [facility] 10/23/2020 12:53:58 10/24/19 21 Colposcopy completed Carline Estrada [facility] 10/27/2020 10:17:28 10/24/19 21 Colposcopy completed Carlinetamika Estrada [facility] 10/27/2020 10:20:50 04/28/20 20 Date of Last Mammogram completed Carline Estrada [facility] 10/09/2021 10:54:39 06/19/19 07 Tubal Ligation completed Carlinetamika Estrada [facility] 10/23/2020 12:44:42 Imaging Results Imaging Date Name Status LastModified by Organization Details LastModified Time 12/04/2023 US, pelvis completed [email or web address] [facility] [place] [address], [place], [address], 12/04/2023 18:13:55 12/04/2023 US, transvaginal completed [email or web address] [facility] [address], [place], [address], 12/04/2023 18:13:44 12/04/2023 US, pelvis completed MELONIE [address], [place], [address], 12/08/2023 11:35:14 02/07/2024 rhythm strip, EKG* completed [place] [address], [place], [address], 02/12/2024 20:19:26 02/13/2024 cardiac stress test completed [address] [place] [address] [address], [place], [address], 02/13/2024 22:04:10 02/14/2024 XR, abdomen + pelvis completed [address] [place] [address], [address], 02/14/2024 22:05:52 02/26/2024 XR, chest completed [address], [address], 02/26/2024 21:08:03 02/26/2024 fluid collection drainage by catheter; peritoneal or retroperitoneal, percutaneous with image guidance (PROC) completed [address], [address], 02/26/2024 21:12:47 02/26/2024 US, renal completed [address], [address], 02/27/2024 22:43:14 Procedure Notes None recorded. Medical Equipment None Reported. Allergies No known drug allergies Medications Name Sig Start Date Stop Date Status Note LastModified by Organization Details LastModified Time amoxicillin 500 mg capsule 04/06 completed Not Available Not Available Not Available prednisone 10 mg tablet TAKE 1 TABLET BY MOUTH TWICE DAILY 08/07 completed Not Available Not Available Not Available ketoconazol e 2 % shampoo 10/10 completed Not Available Not Available Not Available cetirizine 10 mg tablet 04/06 completed Not Available Not Available Not Available oxybutynin chloride ER 10 mg tablet,exte nded release 24 hr TAKE 1 TABLET BY MOUTH EVERY DAY active Not Available Not Available No t Available azithromyci n 250 mg tablet TAKE 2 TABLETS BY MOUTH FOR 1 DAY THEN TAKE 1 TABLET BY MOUTH DAILY FOR 4 DAYS 08/07 completed Not Available Not Available Not Available ibuprofen 800 mg tablet TAKE 1 TABLET BY MOUTH EVERY 8 HOURS NEEDED FOR PAIN. TAKE WITH FOOD 10/10 completed Not Available Not Available Not Available fluconazole 150 mg tablet take 1 tablet by mouth now, repeat in 7 days 12/27 completed Not Available Not Available Not Available benzonatate 200 mg capsule 04/06 completed Not Available Not Available Not Available sulfamethox azole 400 mg-trimetho prim 80 mg tablet TAKE 1 TABLET BY MOUTH TWICE DAILY 02/06 completed Not Available Not Available Not Available hydrocodone 5 mg-acetamin ophen 325 mg tablet 08/07 completed Not Available Not Available Not Available fluconazole 200 mg tablet TAKE 1 TABLET BY MOUTH EVERY OTHER DAY FOR 3 DOSES 07/16 completed Not Available Not Available Not Available meloxicam 15 mg tablet TAKE 1 TABLET BY MOUTH DAILY active Not Available Not Available No t Available metronidazo le 0.75 % (37.5 mg/5 gram) vaginal gel INSERT 1 APPLICATO RFUL VAGINALLY EVERY DAY AT BEDTIME FOR 5 DAYS 02/06 completed Not Available Not Available Not Available famotidine 40 mg tablet 08/07 completed Not Available Not Available Not Available prednisone 20 mg tablet 04/06 completed Not Available Not Available Not Available clobetasol 0.05 % topical cream APPLY TO AFFECTED AREA ON LEGS TWICE DAILY AND ON SCALP ONCE DAILY active Not Available Not Available No t Available metronidazo le 500 mg tablet Take 1 tablet every 12 hours by oral route for 7 days. 12/27 completed Not Available Not Available Not Available amlodipine 5 mg tablet TAKE 1 TABLET BY MOUTH EVERY DAY active Not Available Not Available No t Available valacyclovi r 500 mg tablet TAKE 2 TABLETS BY MOUTH TWICE DAILY FOR 7 DAYS 09/05 completed Not Available Not Available Not Available ciprofloxac in 500 mg tablet TAKE 1 TABLET BY MOUTH EVERY 12 HOURS 03/04 completed Not Available Not Available Not Available sulfamethox azole 800 mg-trimetho prim 160 mg tablet TAKE 1 TABLET BY MOUTH EVERY 12 HOURS 07/16 completed Not Available Not Available Not Available omeprazole 40 mg capsule,del ayed release TAKE 1 CAPSULE BY MOUTH EVERY DAY active Not Available Not Available No t Available tramadol 50 mg tablet TAKE 1 TABLET BY MOUTH EVERY 4 TO 6 HOURS NEEDED FOR PAIN 09/05 completed Not Available Not Available Not Available triamcinolo ne acetonide 0.1 % topical cream 08/07 completed Not Available Not Available Not Available amoxicillin 500 mg tablet TAKE 1 TABLET BY MOUTH TWICE DAILY FOR 10 DAYS 04/23 completed Not Available Not Available Not Available oxycodone-a cetaminophe n 5 mg-325 mg tablet TAKE 1 TABLET BY MOUTH EVERY 4 HOURS NEEDED FOR PAIN active Not Available Not Available No t Available amoxicillin 875 mg tablet active Not Available Not Available Not Available DOK 100 mg capsule 04/06 completed Not Available Not Available Not Available meclizine 25 mg tablet 04/06 completed Not Available Not Available Not Available cephalexin 500 mg capsule TAKE 1 CAPSULE BY MOUTH FOUR TIMES DAILY FOR 10 DAYS active Not Available Not Available No t Available pantoprazol e 40 mg tablet,nehemias yed release TAKE 1 TABLET BY MOUTH EVERY DAY 08/07 completed Not Available Not Available Not Available erythromyci n 5 mg/gram (0.5 %) eye ointment APPLY A THIN RIBBON TO THE LOWER CONJUNCTI MARIXA SAC IN THE AFFECTED EYE THREE TIMES DAILY 10/23 completed Not Available Not Available Not Available tazarotene 0.1 % topical cream APPLY A PEA SIZED AMOUNT BY TOPICAL ROUTE TO PSORIASIS PATCHES EVERY NIGHT AT BEDTIME 30 DAY SUPPLY active Not Available Not Available No t Available nystatin 100,000 unit/gram topical cream 04/06 completed Not Available Not Available Not Available calcipotrie ne 0.005 % topical cream APPLY TOPICALLY TO THE AFFECTED AREA TWICE DAILY active Not Available Not Available No t Available promethazin e 25 mg tablet 04/06 completed Not Available Not Available Not Available estradiol 2 mg tablet TAKE 1 TABLET BY MOUTH EVERY DAY active Not Available Not Available No t Available diclofenac sodium 75 mg tablet,nehemias yed release TAKE 1 TABLET BY MOUTH TWICE DAILY NEEDED TAKE WITH FOOD 08/07 completed Not Available Not Available Not Available hydroxyzine HCl 25 mg tablet 08/07 completed Not Available Not Available Not Available mupirocin 2 % topical ointment 08/07 completed Not Available Not Available Not Available ergocalcife rol (vitamin D2) 1,250 mcg (50,000 unit) capsule TAKE 1 CAPSULE BY MOUTH EVERY WEEK active Not Available Not Available No t Available clobetasol 0.05 % topical ointment APPLY TOPICALLY TO THE AFFECTED AREA ON THE LEGS TWICE DAILY AND SCALP ONCE DAILY active Not Available Not Available No t Available ibuprofen 600 mg tablet TAKE 1 TABLET BY MOUTH THREE TIMES DAILY NEEDED FOR PAIN 07/16 completed Not Available Not Available Not Available estradiol 0.01% (0.1 mg/gram) vaginal cream active Not Available Not Available Not Available zolpidem 10 mg tablet TAKE 1 TABLET BY MOUTH EVERY DAY NEEDED active Not Available Not Available No t Available methylpredn isolone 4 mg tablets in a dose pack FOLLOW PACKAGE DIRECTION S 08/07 completed Not Available Not Available Not Available albuterol sulfate HFA 90 mcg/actuati on aerosol inhaler INHALE 2 PUFFS BY MOUTH EVERY 4 HOURS NEEDED active Not Available Not Available No t Available clobetasol 0.05 % scalp solution APPLY TO SCALP TWICE DAILY NEEDED 10/10 completed Not Available Not Available Not Available ondansetron 4 mg disintegrat ing tablet DISSOLVE 1 TABLET ON THE TONGUE EVERY 8 HOURS NEEDED FOR NAUSEA OR VOMITING 07/16 completed Not Available Not Available Not Available metformin ER 500 mg tablet,exte nded release 24 hr TAKE 1 TABLET BY MOUTH EVERY DAY 08/07 completed Not Available Not Available Not Available doxycycline hyclate 100 mg tablet TAKE 1 TABLET BY MOUTH TWICE DAILY FOR 7 DAYS 08/07 completed Not Available Not Available Not Available estradiol 0.1 mg/24 hr weekly transdermal patch APPLY 1 PATCH TOPICALLY TO THE SKIN EVERY WEEK 03/22 completed Not Available Not Available Not Available amoxicillin 875 mg-potassiu m clavulanate 125 mg tablet TAKE 1 TABLET BY MOUTH EVERY 12 HOURS 03/22 completed Not Available Not Available Not Available amoxicillin 500 mg-potassiu m clavulanate 125 mg tablet TAKE 1 TABLET BY MOUTH EVERY 12 HOURS FOR 7 DAYS 08/07 completed Not Available Not Available Not Available bupropion HCl XL 150 mg 24 hr tablet, extended release 04/06 completed Not Available Not Available Not Available topiramate 50 mg tablet 04/06 completed Not Available Not Available Not Available nitrofurant oin monohydrate /macrocryst als 100 mg capsule 04/06 completed Not Available Not Available Not Available iron 10/23 completed Not Available Not Available Not Available Vitamin 10/18 completed Not Available Not Available Not Available FeroSul 325 mg (65 mg iron) tablet TAKE 1 TABLET BY MOUTH THREE TIMES DAILY 08/07 completed Not Available Not Available Not Available Trulicity 1.5 mg/0.5 mL subcutaneou s pen injector ADMINISTE R 1.5 MG UNDER THE SKIN EVERY WEEK 08/07 completed Not Available Not Available Not Available Trulicity 0.75 mg/0.5 mL subcutaneou s pen injector ADMINISTE R 0.75 MG UNDER THE SKIN EVERY WEEK 08/07 completed Not Available Not Available Not Available ID NOW COVID-19 Test Kit TEST DIRECTED TODAY 04/23 completed Not Available Not Available Not Available Trulicity 3 mg/0.5 mL subcutaneou s pen injector ADMINISTE R 3MG UNDER THE SKIN EVERY WEEK 08/07 completed Not Available Not Available Not Available Trulicity 4.5 mg/0.5 mL subcutaneou s pen injector INJECT 4.5 MG EVERY WEEK SUBCUTANE OUSLY 08/07 completed Not Available Not Available Not Available Mounjaro 7.5 mg/0.5 mL subcutaneou s pen injector Inject by subcutane ous route for 28 days. 2024 active Not Available Not Available Not Avai lable Mounjaro 5 mg/0.5 mL subcutaneou s pen injector ADMINISTE R 5 MG UNDER THE SKIN EVERY WEEK 03/04 completed Not Available Not Available Not Available Vitals Date Recorded Body height Body mass index (BMI) Body weight Systolic blood pressure Diastolic blood pressure Provider Name and Address Organization Details Last Updated DateTime 12/28/2023 157.48 cm 56.2 kg/m2 055358.8 6 g 167 mm[Hg] 102 mm[Hg] [facility]old [facility] 4 16:33:13 Date Recorded Body height Body mass index (BMI) Body weight Systolic blood pressure Diastolic blood pressure Provider Name and Address Organization Details Last Updated DateTime 02/07/2024 157.48 cm 56 kg/m2 968330.2 7 g 134 mm[Hg] 89 mm[Hg] HazelJerold [facility] 4 16:25:22 Date Recorded Body height Body mass index (BMI) Body weight Systolic blood pressure Diastolic blood pressure Provider Name and Address Organization Details Last Updated DateTime 02/21/2024 157.48 cm 54 kg/m2 179804.7 5 g 135 mm[Hg] 88 mm[Hg] [facility] 16:06:58 Date Recorded Body height Body mass index (BMI) Body weight Systolic blood pressure Diastolic blood pressure Provider Name and Address Organization Details Last Updated DateTime 03/04/2024 157.48 cm 55.6 kg/m2 876342.0 8 g 166 mm[Hg] 101 mm[Hg] Hazel [facility] 4 14:07:19 Date Recorded Body height Body mass index (BMI) Body weight Systolic blood pressure Diastolic blood pressure Provider Name and Address Organization Details Last Updated DateTime 03/22/2024 157.48 cm 54.2 kg/m2 509410.0 6 g 137 mm[Hg] 91 mm[Hg] Annetta Martinez [facility] 4 12:31:19 Social History Question Answer Notes LastModified by Organizat ion Details LastModified Time Tobacco Smoking Status Never Smoker Malu hernandez [facility] 12/03/2022 09:56:43 Do You Have An Advance Directive? No [email or web address] Information not available 10/23/2020 What Is Your Level Of Alcohol Consumption? Moderate Information not available 02/27/2021 If You Are , What Was Your Level Of Alcohol Consumption Prior To ? None Information not available 12/03/2022 Are You Blind Or Do You Have Difficulty Seeing? No [email or web address] Information not available 10/23/2020 What Is Your Level Of Caffeine Consumption? Moderate Information not available 02/27/2021 How Much Tobacco Do You Chew? None Information not available 02/27/2021 In The 14 Days Before Symptom Onset, Have You Had Close Contact With A Laboratory-confir med COVID-19 While That Case Was Ill? No [email or web address] Information not available 10/23/2020 In The 14 Days Before Symptom Onset, Have You Had Close Contact With A Person Who Is Under Investigation For COVID-19 While That Person Was Ill? No [email or web address] Information not available 10/23/2020 Have You Been To An Area Known To Be High Risk For COVID-19? No [email or web address] Information not available 10/23/2020 Are You Deaf Or Do You Have Serious Difficulty Hearing? No [email or web address] Information not available 10/23/2020 What Type Of Diet Are You Following? REGULAR [email or web address] Information not available 10/23/2020 Do You Or Have You Ever Used E-cigarettes Or Vape? Never Used Electronic Cigarettes Information not available 12/03/2022 What Is The Highest Grade Or Level Of School You Have Completed Or The Highest Degree You Have Received? [id number] Information not available 10/23/2020 What Is Your Occupation? [employer] [email or web address] Information not available 10/23/2020 Are There Any Guns Present In Your Home? No [email or web address] Information not available 10/23/2020 What Was The Date Of Your Most Recent Tobacco Screening? 08/07/2023 [email or web address] Information not available 08/07/2023 Have You Ever Been Counseled For Unhealthy Alcohol Use? No Information not available 12/03/2022 Do You Use Protection During Sex? Usually [email or web address] Information not available 10/23/2020 Do You Use Your Seat Belt Or Car Seat Routinely? Yes Information not available 10/23/2020 Do You Have Smoke And Carbon Monoxide Detectors In Your Home? Yes [email or web address] Information not available 10/23/2020 Do You Or Have You Ever Used Smokeless Tobacco? Never Used Smokeless Tobacco Information not available 12/03/2022 How Much Tobacco Do You Smoke? No Information not available 05/12/2020 Do You Feel Stressed (tense, Restless, Nervous, Or Anxious, Or Unable To Sleep At Night)? [id number] Information not available 02/27/2021 Do You Use Any Illicit Or Recreational Drugs? No [email or web address] Information not available 10/23/2020 Do You Use Sunscreen Routinely? No [email or web address] Information not available 10/23/2020 Has Tobacco Cessation Counseling Been Provided? No Information not available 12/03/2022 Have You Used IV Drugs? No Information not available 10/23/2020 Do You Or Have You Ever Used Any Other Forms Of Tobacco Or Nicotine? No Information not available 12/03/2022 Sex: Unknown Functional Status Question Answer Note LastModified by Organizat ion Details LastModified Time Do you have difficulty walking or climbing stairs? No Information not available 12/03/2022 Are you able to walk? YESWOREST Information not available 02/27/2021 Are you able to care for yourself? Yes Information not available 12/03/2022 What is your exercise level? None [email or web address] Information not available 04/06/2020 Mental Status None recorded. Family History Relationship Description Onset Age of this Age Resolved Age Notes LastModified by Organization Details LastModified Time Father Diabetes mellitus [email or web address] Not available 07/16 10:08:48 Maternal Grandmother Diabetes mellitus Not available 07/16 10:08:48 Paternal Grandmother Family history of breast cancer [email or web address] Not available 2023 13:52:34 Paternal Grandfather Malignant tumor of colon [email or web address] Not available 07/16 10:08:48 Medical History Condition Response Allergies (Food, seasonal, environmental ) Y Other Y Blood Transfusion N Drug/Latex Allergies/Reactions N Breast Cancer N Dermatologic Disorders Y Lung Disease N Defects or Inherited Disease N Breast Problem N Gestational Diabetes N Hematologic disorders N Anesthesia Complications N History of STI Y Deep Vein Thrombosis N Polycystic ovary syndrome N Anxiety Disorder N Autoimmune disease Y Arthritis N Infertility N Polyps N Acid Reflux (GERD) Y History of abnormal pap Y Cancer N Stroke N Varicosities N Neurologic/Epilepsy N Endometriosis N High Cholesterol N Headaches N Fibromyalgia N Kidney Disease N Heart Problems N Kidney or Bladder Problems N Thyroid Problems N GI Problems N Eating Disorder N Anemia Y Art (IVF or FET) N Psychiatric Illness N Ovarian Cancer N Diabetes Y Pulmonary (TB, Asthma) N Hepatitis/Liver Disease N No Past Medical History N Eczema N Urinary Tract Infection N Abuse/Domestic Violence N Asthma Y Trauma/Violence N Depression/ depression N Heart Disease N Pre-Eclampsia N Hypertension Y Osteoporosis N Thrombophilias N Gynecological History Statement/Question Response Date of Last Mammogram 04/28/2020 Flow Moderate Date of LMP 02/08/2024 N Was last menstrual period normal Y STIs/STDs Y Date of Last Colonoscopy Abnormal Pap Y On BCP's at Conception? N HPV Vaccine N Colposcopy 10/23/2020 Duration of Flow (days) 5 Current Control Method Hysterectom y 13 Age at First Child 16 Frequency of Cycle (Q days) 28 Sexually Active? Y Menses Monthly Y Date of DEXA bone scan Age of first menstrual cycle 12 Date of Last Pap Smear 08/07/2023 Sexual Problems? N LMP Definite N 04/06/2020 Obstetrics History GPAL:G 3 P 3 0 0 3 Type Value Full Term 3 Living 3 Total 3 Past Encounters Encounter ID Performer Location Encounter Start Date Encounter Closed Date Diagnosis/Indication Diagnosis SNOMED-CT Code Diagnosis ICD10 Code Diagnosis Note [id number] Jade Sales [facility] [address] [address] 04/06/2020 11:12:00 04/06/2020 13:49:21 Gynecologic examination [id number] Z01.419 Take Calcium with Vitamin D 1200mg daily if not receiving in daily diet. It is strongly advised to have an annual flu shot and up can obtain at most pharmacies . If you have not had a TDap shot in the last 10 years you should obtain one as well. Discussed with patient & provided with informatio n regarding Gardisil vaccine to prevent the 4 strains for HPV that cause cervical cancer if under age 26. Encourage safe sexual practices, to use condoms and limit partners if not already in a monogamous relationsh ip. Do monthly self breast exams. Have mammogram yearly or every other year depending on family history. BRCA testing is now available for patients with strong genetic history of female cancer. If interested contact the office. Engage in daily exercise of low impact aerobic exercise 45-60 minutes 4-5 times weekly. Avoid tobacco and illicit drugs as well as using moderation with alcohol intake less than 1-2 8 oz beverages daily. This lifestyle behavior pattern will lead to less health conditions and longer life span. If BMI greater than 25 weight watchers or dietary consult advised. Patient received above instructio ns, and questions have been answered. If you have any questions please call or respond to this email. Patient was made aware of the patient portal and may obtain a paper copy of today's plan if desired. Venereal d isease screening 845496293 Z11.3 Sexually t ransmitted infectious disease 0857480 A64 Desires full screening. Mass of right breast [id number] 7946615 N63.10 Diagnostic jimmy and u/s ordered. If nl will rtc in 6 weeks. If abnormal imaging will schedule with specialist tova If nl imaging but lump persists at 6 week f/u will need to see specialist . [id number] Clarissa Mckeon CNM [facility] [address] [address] 10/23/2020 11:57:57 10/23/2020 13:25:29 Atypical squamous cells of undetermined significance on cervical Papanicolaou smear 320503561 R87.610 Human juan llomavirus deoxyribonucleic acid detected, high risk on cervical specimen 351495650 R87.810 [id number] Guillermo Zavala MD [facility] [address] [address] 02/06/2021 11:29:45 02/06/2021 12:08:17 Dysuria 02141120 R30.9 Pain in pelvis 56695387 R10.2 This patient is a 35 -year-old female with pelvic pain. We have agreed to complete the evaluation with pelvic ultrasound . The patient will return after the pelvic ultrasound to discuss those findings and to develop a treatment plan. A comprehens ana history and physical exam was performed today. We spent over 25 minutes face-to-fa ce. The patient was given precaution s. She will contact clinic if pelvic pain increases in frequency or intensity. Also notify clinic of any new symptoms associated with pelvic pain. She does not appear to have an acute pelvic infection today, but was asked to contact us Immediatel y with nausea, vomiting, fever, chills. patient has associated flank pain. She would consider renal calculi if education managers workup is negative. [id number] Carla Pasquale [facility] [address] [address] 02/12/2021 10:41:12 02/12/2021 11:15:48 Pain in pelvis 64129019 R10.2 This patient is a 35 -year-old female with pelvic pain. We have agreed to complete the evaluation with pelvic ultrasound . The patient will return after the pelvic ultrasound to discuss those findings and to develop a treatment plan. A comprehens ana history and physical exam was performed today. We spent over 25 minutes face-to-fa ce. The patient was given precaution s. She will contact clinic if pelvic pain increases in frequency or intensity. Also notify clinic of any new symptoms associated with pelvic pain. She does not appear to have an acute pelvic infection today, but was asked to contact us Immediatel y with nausea, vomiting, fever, chills. patient has associated flank pain. She would consider renal calculi if education managers workup is negative. [id number] Guillermo Zavala MD [facility] [address],[place] [address] 02/27/2021 11:32:55 02/27/2021 12:24:31 Pain in pelvis 93465346 R10.2 Cyst of left ovary 80951 71437 7866753 N83.202 this patient is a 35-year-ol d female with severe pelvic pain and a left ovarian cyst. We have agreed to perform a laparoscop ic left ovarian cystectomy . She understand s the risks, benefits, and alternativ es. She has completed the informed consent process and is ready to proceed. [id number] Guillermo Zavala MD [facility] [address],[place] [address] 05/28/2021 11:07:39 05/28/2021 12:07:57 Pain in pelvis 46668249 R10.2 Cyst of ovary 38586117 N 83.209 this patient is a 36-year-ol d female presents for preoperati ve care. She has pelvic pain and left ovarian cyst. We agreed to perform left ovarian cystectomy . She understand s the risks, benefits, and alternativ es. She has completed the informed consent process is ready to proceed. [id number] Guillermo Zavala MD [facility] [address],[place] [address] 06/03/2021 09:53:56 06/03/2021 09:55:28 [id number] Raven Gillespie MD [facility] [address],[place] [address] 06/09/2021 11:51:17 06/09/2021 12:48:04 Postoperative visit [id number] Z09 [id number] Guillermo Zavala MD [facility] [address],[place] [address] 07/17/2021 12:35:18 07/19/2021 13:06:11 Vaginitis 06826588 N76.0 Cyst of left ovary 42030 14069 9079990 N83.202 this patient is a 36 year female presents for follow-up on pelvic pain and ovarian cyst. Her pain is resolved. She underwent a surgical procedure more than a month ago for removal of ovarian cyst. She tolerated well. Her incisions are clean dry and intact but she has no complaints today. She reports looking forward to weight loss surgery, gastric sleeve / bariatric surgery. [id number] [facility] [address],[place] [address] 10/09/2021 10:44:46 10/09/2021 11:20:42 Pain in pelvis 02904543 R10.2 Suspect BV from use of OTC products/n ew hygeine products.S wab sentWill send urineWill contact if any other treatment needed.Rx sent Counseled on medication R/B's, Most common side effects, & use. All questions were answered to patient satisfacti on. Time spent in visit is a total of 15 mins with at least 50% of visit consisting of counseling and review of plan of care. [id number] [facility] [address],[place] [address] 04/23/2022 10:53:17 04/25/2022 16:41:47 Gynecologic examination 81501896 Z01.419 Take Calcium with Vitamin D 1200mg daily if not receiving in daily diet. It is strongly advised to have an annual flu shot and up can obtain at most pharmacies . If you have not had a TDap shot in the last 10 years you should obtain one as well. Discussed with patient & provided with informatio n regarding Gardisil vaccine to prevent the 4 strains for HPV that cause cervical cancer if under age 26. Encourage safe sexual practices, to use condoms and limit partners if not already in a monogamous relationsh ip. Do monthly self breast exams. Have mammogram yearly or every other year depending on family history. BRCA testing is now available for patients with strong genetic history of female cancer. If interested contact the office. Engage in daily exercise of low impact aerobic exercise 45-60 minutes 4-5 times weekly. Avoid tobacco and illicit drugs as well as using moderation with alcohol intake less than 1-2 8 oz beverages daily. This lifestyle behavior pattern will lead to less health conditions and longer life span. If BMI greater than 25 weight watchers or dietary consult advised. Patient received above instructio ns, and questions have been answered. If you have any questions please call or respond to this email. Patient was made aware of the patient portal and may obtain a paper copy of today's plan if desired. Pap/hpv sentSTD Screen sentGeneti c Screen discussedC olon Screen naDexa Screen naRoutine Labs PCPMammo na Vaginitis 54996757 N76.0 Suspect yeast on exam Elevated blood-pressure reading without diagnosis of hypertension 699569592 R03.0 150's/88 F/U PCP if not feeling betterUrge nt care if SOB/Cough/ Heaviness in chest worsen. Patient is to contact office or go to nearest ED/Urgent care if fever >/= 100.1, pain, excessive bleeding, unusual drainage or swelling in area of concern; or experienci ng worsening sx's or new onset of concerning sx's. Understand ing verbalized . All questions answered to patient satisfacti on. [id number] [facility] [address] [address] 07/16/2022 09:55:18 07/18/2022 16:40:33 Venereal disease screening 879877876 Z11.3 Updated STD screen sentNo sx'sSwab onlyWill contact with results Time spent in visit is a total of 15 mins with at least 50% of visit consisting of counseling and review of plan of care. [id number] FLOR Orantes [facility] [address] [address] 10/10/2022 11:49:51 10/10/2022 15:34:42 Lesion of skin of breast [id number] 76569 L98.8 Pain in pelvis 16055855 R10.2 This patient is a 37 -year-old female with pelvic pain. We have agreed to complete the evaluation with pelvic ultrasound . The patient will return after the pelvic ultrasound to discuss those findings and to develop a treatment plan. A comprehens ana history and physical exam was performed today. We spent over 25 minutes face-to-fa ce. The patient was given precaution s. She will contact clinic if pelvic pain increases in frequency or intensity. Also notify clinic of any new symptoms associated with pelvic pain. She does not appear to have an acute pelvic infection today, but was asked to contact us Immediatel y with nausea, vomiting, fever, chills.uri ne cx sentvagini tis panel sentSTI endocervic al testing sentpelvic u/s orderedrig ht breast u/s ordered, recently had normal mammogram per patient. Needs to schedule f/u with surgeon who excised left breast cyst.RTC for pelvic u/s and f/u appointmen tprecautio ns discussed Venereal d isease screening 978076451 Z11.3 Vaginal discharge 376551 006 N89.8 Dysmenorrhea 012411716 N 94.6 [id number] [facility] [address] [address] 10/12/2022 12:06:23 10/12/2022 12:44:17 Pain in pelvis 58947380 R10.2 [id number] FLOR Orantes [facility] [address] [address] 10/18/2022 17:11:03 10/18/2022 17:54:50 Abnormal uterine bleeding 9103759250 9100 N93.9 today we reviewed updated pelvic u/sdiscuss ed pelvic pain, recent heavier periods. 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 All BC methods discussed. Has tried multiple methods in the past, declines at this time.she expressed that she wants to discuss a hysterecto my, we agreed to MD consult with Dr. Zavala to discuss surgical options. We discussed possible EMB for further evaluation , she would like to have MD consult first.she is scheduled to see hematology for iron infusions soon due to worsening anemia, records release signed for recent labs. Declines additional blood work today.prec autions discussed Time spent in visit is a total of 25 mins with at least 50% of visit consisting of counseling and review of plan of care. Dysmenorrhea 471650496 N 94.6 Pain in pelvis 65183565 R10.2 Cyst of breast 605573999 N60.09 reviewed recent updated breast u/scx sent of d/crecomme nd f/u with breast surgeon who removed cyst - she will schedule thisprecau tions discussed [id number] Guillermo Zavala MD [facility] [address] [address] 12/03/2022 09:56:15 12/05/2022 14:06:08 Bacterial vaginosis 645170194 N76.0 Abscess of skin and/or subcutaneous tissue 00308035 L02.91 Abnormal u terine bleeding 1474224630 9100 N93.9 this patient is a 29-year-ol d female presents for heavy bleeding, vulvar abscess and vaginal discharge. She has a mucousy vaginal discharge. Has odor. We agreed to treat odor, but cannot treat cervical mucus. Happens at time of ovulation. We spent over 40 minutes face-to-fa ce. More than 50% was counseling . We agreed to incision and drainage abscess on a different day. Talked about bleeding extensivel y. Read this moment she does have a bleeding issue we agreed to observe. Talked about her possible endometria l biopsy, possible endometria l ablation, hormonal treatment, Mirena IUD. Return for incision and drainage skin abscess, [id number] Guillermo Zavala MD [facility] [address] [address] 12/10/2022 10:41:04 12/12/2022 15:40:13 Lesion of vulva 634266325 N90.89 vulvar lesion in the area of the mons pubis near the vulva superiorly was incised and drained. Little drainage occurred. Is lot of thickened scar tissue , granulomat ous type tissue. she tolerated well. She would like to have it excised. I asked her to see Dermatolog y about it before she had excised to get diagnosis [id number] Guillermo Zavala MD [facility] [address] [address] 03/10/2023 14:57:14 03/10/2023 15:57:46 Menorrhagia 116366056 N92.0 This patient is a 37 year-old female presents for heavy vaginal bleeding. She has longstandi ng very heavy bleeding. Her menses are regular. However, they require double protection . Patient has accidents, getting blood on her bedding and clothing. Is affected work. She changes a pad or tampon every hour. She leaks blood around the pad and tampon. This bleeding has a profound impact on her quality of life and her activities of daily living. bleeding is irregular at times. We talked about irregular bleeding. Talked about anovulatio n. We talked about treatment of bleeding. She has limited options due to her weight. We agreed to endometria l ablation. We also agreed laps for the evaluation abnormal uterine bleeding and ovulatory bleeding. We spent 40 minutes face-to-fa ce. We made a decision to perform procedure /Surgery. Abnormal u terine bleeding 2688490084 9100 N93.9 [id number] Carline Estrdaa [facility] [address] [address] 08/07/2023 16:55:37 08/07/2023 17:57:06 Menorrhagia 666814976 N92.0 This patient is a 37 year-old female presents for heavy vaginal bleeding. She has longstandi ng very heavy bleeding. Her menses are regular. However, they require double protection . Patient has accidents, getting blood on her bedding and clothing. Is affected work. She changes a pad or tampon every hour. She leaks blood around the pad and tampon. This bleeding has a profound impact on her quality of life and her activities of daily living. bleeding is irregular at times. We talked about irregular bleeding. Talked about anovulatio n. We talked about treatment of bleeding. She has limited options due to her weight. We agreed to endometria l ablation. We also agreed laps for the evaluation abnormal uterine bleeding and ovulatory bleeding. We spent 40 minutes face-to-fa ce. We made a decision to perform procedure /Surgery. Gynecologi c examination 60956928 Z01.419 Annual gynecologi nathalia exam performed. Patient will come back in a year unless there are new symptoms. Suggest Calcium with Vitamin D if not eating in diet. Patient advised to get annual flu shot. Recommend yearly physicals and preform monthly breast exams. Genetic testing is available for patients with family history of cancer. Engage in safe sexual practices, use condoms. Encouraged to have daily exercise. Avoid tobacco and illicit drugs, moderation of alcohol. If BMI greater than 25 dietary consult advised. If you have any questions please call or email. Pap smear- laboratory evaluation - std and cmp and lipis , cbc Sexually t ransmitted infectious disease 3449326 A64 [id number] Sharifa Mazariegos [facility] [address] [address] 09/06/2023 15:56:39 09/06/2023 17:25:02 Prediabetes 936439008 R73.03 Dysplasia of cervix 7339 1008 N87.9 colposcopy was performed. Aceto-whit e area with punctation observed. ECC was performed unsatisfac tory exam. To follow-up on pathology. [id number] FLOR Orantes [facility] [address] [address] 11/30/2023 16:57:30 11/30/2023 17:45:42 Vaginitis 74803108 N76.0 suspect BV/yeast - rx sent, r/b/a reviewedva ginitis panel sentgc/ct/ trich testing sentHIV/he p B&C/Syphil is testing ordered per pt requesturi ne cx sentvulvar care guidelines discussed - d/c use of feminine washpelvic u/s orderedpre cautions reviewed, BP precaution s discussed/ encouraged PCP f/u Time spent in visit is a total of 30 mins with at least 50% of visit consisting of counseling and review of plan of care. Venereal d isease screening 231323775 Z11.3 Pain in pelvis 99598173 R10.2 Sexually t ransmitted infectious disease 4110237 A64 Screening procedure 2012 5006 Z13.9 [id number] Sofie Rae [facility] [address] [address] 12/04/2023 17:08:13 12/05/2023 02:05:32 Pain in pelvis 54620746 R10.2 [id number] Guillermo Zavala MD [facility] [address] [address] 12/28/2023 16:20:53 12/28/2023 17:47:35 Menorrhagia 544948606 N92.0 38-year-ol d female presents for follow-up on severe menorrhagi a and ovarian cyst. She presents to discuss ultrasound results. We shared those images and discussed her clinical significan ce. She is longstandi ng heavy bleeding. She has severe anemia. She gets irontransf usions and sees a hematologi st for her severe anemia. we discussed treatment options today. We talked about ovarian cysts, etiology, natural history, treatment thereof. Talked about treatments for menorrhagi a. Patient has failed multiple medical treatments . She would like to proceed with definitive surgical treatment. She would like to proceed with total laparoscop ic hysterecto my bilateral salpingo-o ophorectom y. We discussed the procedure in great detail. She understand s the procedure. The patient understand s the procedure. The procedure was described to the patient in great detail. the patient also understand s the risks. The risks were also explained in detail. She understand s that injuries May occur during surgery. She understand s these injuries can result in hospitaliz ation, more surgery, and severe illness. She understand s there is risk of hemorrhage and infection. I spent over 40 minutes in the care of this patient. We had a broad wide ranging discussion of menorrhagi a, severe anemia, ovarian cyst, surgical treatments , medical treatments , the details of the surgical treatment that she prefers and the detail discussed the technical aspects of the care the surgery and the recovery. Cyst of ovary 11184952 N 83.209 [id number] Guillermo Zavala MD [facility] [address] [address] 02/07/2024 15:43:27 02/08/2024 09:18:42 Menorrhagia 429423488 N92.0 38-year-ol d female presents for follow-up on severe menorrhagi a. We have agreed to perform total laparoscop ic hysterecto my and bilateral salpingect mirza. She understand s the risks, benefits, and alternativ es. She has completed the informed consent process and is ready to proceed. [id number] Guillermo Zavala MD [facility] [address] [address] 02/21/2024 15:42:41 02/21/2024 17:18:56 Dysuria 49906768 R30.9 Urinary tr act infectious disease 80687122 N39.0 Menopausal symptom 73670 002 N95.1 Postoperative care 39530 9007 Z48.89 female Patient presents for postop follow-up. She is 1 week postop from a total laparoscop ic hysterecto my bilateral salpingect mirza oophorecto my. She has no complaints . Her incisions are clean dry and intact. She is recovering normally. She will follow-up as needed. [id number] Guillermo Zavala MD [place] [address],[facility] [place] [address] 03/04/2024 13:52:02 03/04/2024 15:01:30 Insomnia [id number] F51.01 Urgent pierre mohan to urinate [id number] R39.15 Postoperat ana abscess of female pelvis [id number] N73.9 this patient is a 38-year-ol d female presents for follow-up on postoperat ana pelvic abscess and total laparoscop ic hysterecto my. She is starting to improve. She was smiling and laughing today. She reports pain in the pelvis that persists. She reports urinary urge. There is some leukocytes in her urine. She is being treated with antibiotic s already. We will treat her urge with the oxybutynin . She will be prescribed Ambien for sleep. She was given details on all these medication s. Described instructio ns and precaution s. Discussed risks benefits and [id number] Guillermo Zavala MD [place] [address] [address] 03/22/2024 12:18:13 03/22/2024 13:14:13 Menopausal symptom [id number] N95.1 Postoperative care [id number] Z48.89 female Patient presents for postop follow-up. She is 1 week postop from a total laparoscop ic hysterecto my bilateral salpingect mirza oophorecto my. She has no complaints . Her incisions are clean dry and intact. She is recovering normally. She will follow-up as needed. recovers complicate d by postoperat ana abscess. She has also had some pain issues she is now recovered her near fully recovered Health Concerns Section Related Observation LastModified by Organization Detai ls LastModified Time None Recorded Concern Status LastModified by Organization Details LastModified Time None Recorded Advance Directives Directive N: Payers Encounter Date Sequence Insurance Name Policy Number Policy Bowles Covered Member ID Bowles Member ID Guarantor Name 12/28/2023 1 [facility] [id number] Sara R Matt [id number] Sara R Matt 02/07/2024 1 [employer] [id number] Sara R Matt [id number] 1 Sara R Matt 02/21/2024 1 [employer] [id number] Sara R Matt [id number] 1 Sara R Matt 03/04/2024 1 [employer] [id number] Sara R Matt [id number] 1 Sara R Matt 03/22/2024 1 [employer] [id number] Sara R Matt [id number] 1 Sara R Matt Notes Date Note Type Note Provider Name and Address Organization Details Recorded Time 12/28/2023 text/html 38-year-old kane horton presents for follow-up on severe menorrhagia and ovarian cyst. She presents to discuss ultrasound results. We shared those images and discussed her clinical significance. She is longstanding heavy bleeding. She has severe anemia. She gets irontransfusions and sees a sheep herder for her severe anemia. we discussed treatment options today. We talked about ovarian cysts, etiology, natural history, treatment thereof. Talked about treatments for menorrhagia. Patient has failed multiple medical treatments. She would like to proceed with definitive surgical treatment. She would like to proceed with total laparoscopic hysterectomy bilateral salpingo-oophorectomy . We discussed the procedure in great detail. She understands the procedure. The patient understands the procedure. The procedure was described to the patient in great detail. the patient also understands the risks. The risks were also explained in detail. She understands that injuries May occur during surgery. She understands these injuries can result in hospitalization, more surgery, and severe illness. She understands there is risk of hemorrhage and infection. I spent over 40 minutes in the care of this patient. We had a broad wide ranging discussion of menorrhagia, severe anemia, ovarian cyst, surgical treatments, medical treatments, the details of the surgical treatment that she prefers and the detail discussed the technical aspects of the care the surgery and the recovery. Guillermo Zavala MD [address], [place], [address], [facility] 12/28/2023 17:29:57 02/07/2024 text/html this patient is a 38-year-old female with severe menorrhagia. We have agreed to perform total laparoscopic hysterectomy bilateral salpingectomy. The patient understands the procedure. The procedure was described to the patient in great detail. the patient also understands the risks. The risks were also explained in detail. She understands that injuries May occur during surgery. She understands these injuries can result in hospitalization, more surgery, and severe illness. She understands there is risk of hemorrhage and infection. Guillermo Zavala MD [address], [place], [address], [facility] 02/07/2024 23:06:39 02/21/2024 text/html female Patient presents for postop follow-up. She is 1 week postop from a total laparoscopic hysterectomy bilateral salpingectomy oophorectomy. She has no complaints. Her incisions are clean dry and intact. She is recovering normally. She will follow-up as needed. Guillermo Zavala MD [address], [place], [address], [facility] 02/21/2024 16:44:26 03/04/2024 text/html this patient is a 38-year-old female presents for follow-up on postoperative pelvic abscess and total laparoscopic hysterectomy. She is starting to improve. She was smiling and laughing today. She reports pain in the pelvis that persists. She reports urinary urge. There is some leukocytes in her urine. She is being treated with antibiotics already. We will treat her urge with the oxybutynin. She will be prescribed Ambien for sleep. She was given details on all these medications. Described instructions and precautions. Discussed risks benefits and Guillermo Zavala MD [address], [place], [address], [facility] 03/04/2024 14:46:05 03/22/2024 text/html female Patient presents for postop follow-up. She is 1 week postop from a total laparoscopic hysterectomy bilateral salpingectomy oophorectomy. She has no complaints. Her incisions are clean dry and intact. She is recovering normally. She will follow-up as needed. recovers complicated by postoperative abscess. She has also had some pain issues she is now recovered her near fully recovered Guillermo Zavala MD [address], [place], [address], [facility] 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 04/06/20 20 1 CLOSED Fetus Data First Name Last Name Admitted to NICU Weight (g) Sex Living Outcome Pediatric Complications Fetus ID Race Codes Race Delivery Type 2919.77 1704 M Full Term 5443 Vaginal Delivery Gigi Calculation Initial Gigi Date Initial Exam Date Initial Exam Provider Initial Ultrasound Date Last Menstrual Period Date Ultra Sound Weeks Gestation 0 Eighteen To Twenty Week Gigi Update Ultra Sound Date Fundal Height At Umbil Quickening Date Ultra Sound Latest Weeks Gestation Final Gigi Confirmed By Final Gigi Confirmed Date Final Gigi Date Ultra Sound Latest Days Gestation 0 0 Menstrual History Last Menstrual Date Menses Monthly On Bcp Conception Prior Menses Frequency Hcg Plus Date Menarche Onset Age Delivery Information Delivery Date Delivery Type Labor Anesthesia Weeks Gestation Incision Type Labor Labor Length Hrs Delivered By Post Complications Tubal Sterilization Discharge Date Comments 2 40 Discharge Information Feeding Method Contraceptive Method Maternal HG B and HCT Levels Ob Episode Information Episode Created Date Number of Fetuses Patient Bloodtype Patient rh Status Prepregnancy Weight lbs Domestic Partner Domestic Partner Phone Father Name 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 Softball Coach Status 04/06/20 20 1 CLOSED Fetus Data First Name Last Name Admitted to NICU Weight (g) Sex Living Outcome Pediatric Complications Fetus ID Race Codes Race Delivery Type 3401.94 F Full Term 5445 Vaginal Delivery Gigi Calculation Initial Gigi Date Initial Exam Date Initial Exam Provider Initial Ultrasound Date Last Menstrual Period Date Ultra Sound Weeks Gestation 0 Eighteen To Twenty Week Gigi Update Ultra Sound Date Fundal Height At Umbil Quickening Date Ultra Sound Latest Weeks Gestation Final Gigi Confirmed By Final Gigi Confirmed Date Final Gigi Date Ultra Sound Latest Days Gestation 0 0 Menstrual History Last Menstrual Date Menses Monthly On Bcp Conception Prior Menses Frequency Hcg Plus Date Menarche Onset Age Delivery Information Delivery Date Delivery Type Labor Anesthesia Weeks Gestation Incision Type Labor Labor Length Hrs Delivered By Post Complications Tubal Sterilization Discharge Date Comments 7 40 Discharge Information Feeding Method Contraceptive Method Maternal HG B and HCT Levels Ob Episode Information Episode Created Date Number of Fetuses Patient Bloodtype Patient rh Status Prepregnancy Weight lbs Domestic Partner Domestic Partner Phone Father Name 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 Softball Coach Status 04/06/20 20 1 CLOSED Fetus Data First Name Last Name Admitted to NICU Weight (g) Sex Living Outcome Pediatric Complications Fetus ID Race Codes Race Delivery Type 2551.45 5 F Full Term 5444 Vaginal Delivery Gigi Calculation Initial Gigi Date Initial Exam Date Initial Exam Provider Initial Ultrasound Date Last Menstrual Period Date Ultra Sound Weeks Gestation 0 Eighteen To Twenty Week Gigi Update Ultra Sound Date Fundal Height At Umbil Quickening Date Ultra Sound Latest Weeks Gestation Final Gigi Confirmed By Final Gigi Confirmed Date Final Gigi Date Ultra Sound Latest Days Gestation 0 0 Menstrual History Last Menstrual Date Menses Monthly On Bcp Conception Prior Menses Frequency Hcg Plus Date Menarche Onset Age Delivery Information Delivery Date Delivery Type Labor Anesthesia Weeks Gestation Incision Type Labor Labor Length Hrs Delivered By Post Complications Tubal Sterilization Discharge Date Comments 2 40 Discharge Information Feeding Method Contraceptive Method Maternal HG B and HCT Levels
== END 2024-10-09 14:37 | disposition home or self-care (01) ==
LOC: ANHIMG 14:41
PROVIDERS: Visit Provider Orthopaedic Surgery
DX: M25.461 Effusion, right knee (principal); M17.11 Unilateral primary osteoarthritis, right knee
CPT/HCPCS: 73721